=== PATIENT | male | born 1960 | race Caucasian/White ===

== ENCOUNTER 2017-09-13 21:38 | Inpatient (IN) | payer BC ==
[~2017-09-13] VITALS: Ht 175.3 cm; Wt 93.3 kg
[2017-09-13 21:40] VITALS: BP 109/85; PULSE 120; RESP 16; TEMP 98.3; O2SAT 98
--- NOTE | 2017-09-13 22:44 | PD ---
HPI Chief Complaint: Pain: Acute or Chronic Time Seen by Provider: 22:42 Travel History International Travel<30 days: No Contact w/Intl Traveler<30days: No Traveled to known affect area: No History of Present Illness HPI The patient is a 56 year old male who presents to the [facility] emergency department with a history of gradually worsening pain in his neck and back that first began approximately 6 weeks ago. Patient reports that he awoke with the pain in his neck that was gradually getting worse, therefore he went to a neurologist by the name of . He reports that at that time he was also having pain down into his right arm. An MRI of the cervical spine without contrast was ordered by the neurologist which the patient provides during this emergency department visit and showed "an irregular T2 bright mass involving the right lateral C4 and C5 vertebral body and extension into the right pedicle with the mass measuring 2 x 2 x 1.5 cm. This mass completely obscures the right neural foramina at C4-C5 C5-C6. There is also asymmetry within the adjacent right paraspinal soft tissues at this level which is incompletely evaluated". The patient reports that subsequent to that and an MRI of the cervical spine with contrast was ordered. At that point a large right supraclavicular soft tissue mass and a destructive lesion of the C5 vertebral body was noted, both malignant until proven otherwise according to that reading radiologist. Subcentimeter metastatic lesions were also noted of the T2 and T3 vertebral bodies. After this, the patient had an appointment with a local oncologist in [place], . A PET scan was ordered and it appears completed on September 02. The patient has a copy of this also provided during this emergency department visit. The PET scan confirms destructive tumor in the right C4 vertebral body, right supraclavicular tumor, no malignancy or metastasis identified elsewhere. The patient reports that his oncologist told him to come to the emergency department for admission to the hospital to obtain his biopsy. The patient denies any history of fever, cough, congestion, neck pain, chest pain, shortness of breath, abdominal pain, vomiting, diarrhea, urinary symptoms , or neurologic symptoms. [facility] Past Medical History Narrative Medical The patient's past medical history is significant for hypertension, depression, tobacco abuse, anxiety disorder Anxiety: Yes Cancer: Yes (spinal ca c and t) Headaches: Yes (r/t pain) Hypertension: Yes Tetanus Vaccination: > 5 Years Influenza Vaccination: Yes Past Surgical History Narrative Surgical The patient's past surgical history is significant for a left hip replacement Joint Replacement: Yes (left hip replacement) Social History Alcohol Use: Yes (2 drinks 2-3 times per week.) Tobacco Use: Yes (2 packs per day) Substance Use: No Allergies-Medications (Allergen,Severity, Reaction): Coded Allergies: No Known Allergies (Verified Allergy, Unknown, 09/13/17) Reported Meds & Prescriptions Reported Meds & Active Scripts Active Reported Bupropion HCl 100 Mg Tab 300 Mg PO DAILY Losartan (Losartan Potassium) 25 Mg Tab 12.5 Mg PO BID Alprazolam 0.5 Mg Tab 0.5 Mg PO Q6H PRN Morphine IR (Morphine Sulfate) 15 Mg Tab 15 Mg PO Q6HR PRN Percocet (Oxycodone-Acetaminophen) 10-325 mg Tab 1 Tab PO Q4H PRN Narrative Medication Wellbutrin, losartan, Xanax as needed, morphine for pain which he last took yesterday. Review of Systems Except as stated in HPI: all other systems reviewed are Neg General / Constitutional: No: Fever Eyes: No: Visual changes HENT: No: Headaches Cardiovascular: No: Chest Pain or Discomfort Respiratory: No: Shortness of Breath Gastrointestinal: No: Nausea, Vomiting, Diarrhea, Abdominal Pain Genitourinary: No: Dysuria Musculoskeletal: Positive: Myalgias, Arthralgias, Pain Skin: No Rash Neurologic: No: Weakness, Focal Abnormalities, Change in Mentation, Slurred Speech, Sensory Disturbance Psychiatric: No: Depression Endocrine: No: Polydipsia Hematologic/Lymphatic: No: Easy Bruising Physical Exam Narrative General: The patient is a well-developed well-nourished male in no acute distress. Head and Neck exam: Head is normocephalic atraumatic. Eyes: EOMI, pupils are equal round and reactive to light. Nose: Midline septum with pink mucous membranes Mouth: Dentition unremarkable. Moist mucus membranes. Posterior oropharynx is not erythematous. No tonsillar hypertrophy. Uvula midline. Airway patent. Neck: No palpable lymphadenopathy. No nuchal rigidity. No thyromegaly. The patient reports having right-sided cervical paraspinal tenderness on palpation. Cardiovascular: Sinus tachycardia in the 1 teens without murmurs, gallops, or rubs. No pulse deficit to the extremities on simultaneous auscultation and palpation of his radial artery. Lungs: Clear to auscultation bilaterally. No wheezes, rhonchi, or rales. Abdomen: Soft, without tenderness to palpation in all 4 quadrants of the abdomen. No guarding, rebound, or rigidity. Normal bowel sounds are audible. No tenderness on palpation of McBurney's point. Extremities: No clubbing, cyanosis, or edema. 2+ pulses in all 4 extremities. Back: No costovertebral angle tenderness to palpation. Neurologic Exam: Cranial nerves 2-12 were intact on exam. Strength is 5/5 in all 4 extremities. No sensory deficits noted. Skin Exam: No rash noted. Intact skin that is warm and dry. Data Data Last Documented VS Vital Signs Date Time Temp Pulse Resp B/P (MAP) Pulse Ox O2 Delivery O2 Flow Rate FiO2 09/13/17 23:44 16 98 Room Air 09/13/17 23:30 104 09/13/17 21:40 98.3 Orders Orders Electrocardiogram (09/13/17 22:59) Complete Blood Count With Diff (09/13/17 22:59) Comprehensive Metabolic Panel (09/13/17 22:59) Prothrombin Time / Inr (Pt) (09/13/17 22:59) Act Partial Throm Time (Ptt) (09/13/17 22:59) Lipase (09/13/17 22:59) Urinalysis - C+S If Indicated (09/13/17 22:59) Magnesium (Mg) (09/13/17 22:59) Chest, Single Ap (09/13/17 22:59) Iv Access Insert/Monitor (09/13/17 22:59) Ecg Monitoring (09/13/17 22:59) Oximetry (09/13/17 22:59) Sodium Chlorid 0.9% 500 Ml Inj (Ns 500 M (09/13/17 23:00) Ondansetron Inj (Zofran Inj) (09/13/17 23:00) Hydromorphone Pf Inj (Dilaudid Pf Inj) (09/13/17 23:00) Hydromorphone Pf Inj (Dilaudid Pf Inj) (09/14/17 00:15) Admit Order (Ed Use Only) (09/14/17 00:48) Labs Laboratory Tests Test 09/13/17 23:22 White Blood Count 14.7 TH/MM3 Red Blood Count 4.51 MIL/MM3 Hemoglobin 14.0 GM/DL Hematocrit 39.9 % Mean Corpuscular Volume 88.5 FL Mean Corpuscular Hemoglobin 31.0 PG Mean Corpuscular Hemoglobin Concent 35.1 % Red Cell Distribution Width 14.5 % Platelet Count 238 TH/MM3 Mean Platelet Volume 9.0 FL Neutrophils (%) (Auto) 73.6 % Lymphocytes (%) (Auto) 16.6 % Monocytes (%) (Auto) 8.2 % Eosinophils (%) (Auto) 0.8 % Basophils (%) (Auto) 0.8 % Neutrophils # (Auto) 10.8 TH/MM3 Lymphocytes # (Auto) 2.4 TH/MM3 Monocytes # (Auto) 1.2 TH/MM3 Eosinophils # (Auto) 0.1 TH/MM3 Basophils # (Auto) 0.1 TH/MM3 CBC Comment DIFF FINAL Differential Comment Prothrombin Time 10.7 SEC Prothromb Time International Ratio 1.1 RATIO Activated Partial Thromboplast Time 26.1 SEC Urine Color YELLOW Urine Turbidity CLEAR Urine pH 7.0 Urine Specific [place] 1.020 Urine Protein TRACE mg/dL Urine Glucose (UA) NEG mg/dL Urine Ketones NEG mg/dL Urine Occult Blood NEG Urine Nitrite NEG Urine Bilirubin NEG Urine Urobilinogen 2.0 MG/DL Urine Leukocyte Esterase TRACE Urine RBC 2 /hpf Urine WBC 1 /hpf Urine Hyaline Casts 4 /lpf Urine Mucus FEW /lpf Microscopic Urinalysis Comment CULT NOT INDICATED Blood Urea Nitrogen 18 MG/DL Creatinine 0.84 MG/DL Random Glucose 131 MG/DL Total Protein 6.7 GM/DL Albumin 3.1 GM/DL Calcium Level 8.4 MG/DL Magnesium Level 2.2 MG/DL Alkaline Phosphatase 49 U/L Aspartate Amino Transf (AST/SGOT) 28 U/L Alanine Aminotransferase (ALT/SGPT) 69 U/L Total Bilirubin 0.6 MG/DL Sodium Level 140 MEQ/L Potassium Level 3.5 MEQ/L Chloride Level 104 MEQ/L Carbon Dioxide Level 28.5 MEQ/L Anion Gap 8 MEQ/L Estimat Glomerular Filtration Rate 94 ML/MIN Lipase 212 U/L [facility] Medical Decision Making Medical Screen Exam Complete: Yes Emergency Medical Condition: Yes Medical Record Reviewed: Yes Interpretation(s) Last Impressions Chest X-Ray 09/13/17 2259 Signed Impressions: Service Date/Time: Wednesday, September 13, 2017 23:17 - CONCLUSION: No acute disease. Darrel De La O MD Differential Diagnosis Progression of metastatic cancer, versus musculoskeletal strain Narrative Course During the course of the patient's emergency department visit, the patient's history, examination, and differential diagnosis were reviewed with the patient. The patient was placed on a cardiac cath rn with oximetry and frequent blood pressure monitoring. The patient had IV access obtained and blood work sent for analysis. The patient was initially provided hydromorphone 1 mg IV for pain, Zofran 4 mg IV for nausea, normal saline at 500 mL bolus 1. The patient's laboratory studies were reviewed and remarkable for a white count of 14.7, hemoglobin 14, platelets 238 was 73.6 neutrophils. CMP is remarkable for a glucose of 131, calcium 8.4, albumin 3.1, lipase 212, PT 10.7, PTT 26.1, urinalysis is unremarkable. Radiology studies were reviewed and remarkable for chest x-ray that shows no acute cardiopulmonary disease. The patient continued to require IV pain medication was given a second dose of hydromorphone 1 mg IV. The patient will be admitted to the hospital for intractable pain related to a supraclavicular mass, cervical spine mass. The patient's results were discussed with the patient, including the plan of care. I explained that further testing and/ or monitoring is indicated based on the patient's history, examination, and/ or laboratory findings. Therefore, I recommended admission for additional evaluation. The patient expressed understanding and was agreeable with this plan. The patient was admitted to the hospital in stable condition and sent to a [facility]. Physician Communication Physician Communication The patient's case including history, pertinent physical examination findings, and laboratory studies were discussed with Dr. Mary. It was agreed that the patient would be admitted to the [facility] service. Diagnosis Primary Impression: Intractable pain Additional Impressions: Supraclavicular mass Cervical spinal mass Cherie Argueta MD Sep 13, 2017 22:44
[2017-09-13] MEDS ORDERED: ONDANSETRON HCL 4 MG/2 ML VIAL IV PUSH ONE (23:00)
[2017-09-13] MEDS ORDERED: HYDROmorphone HCL PF 2 MG/ML VIAL IV PUSH ONE (23:00)
[2017-09-13] MEDS ORDERED: SODIUM CHLORID 0.9% 500 ML INJ 500 ML IV ONE (23:00)
[2017-09-13 23:30] VITALS: BP 143/86; PULSE 104; RESP 18; O2SAT 98
--- NOTE | 2017-09-13 23:36 | RADRPT ---
EXAM DATE/TIME: 09/13/2017 23:17 [place] COMPARISON: No previous studies available for comparison. INDICATIONS : Back pain. MEDICAL HISTORY : Carcinoma of the spine SURGICAL HISTORY : None. ENCOUNTER: Initial ACUITY: 1 day PAIN SCORE: 0/10 LOCATION: Bilateral chest FINDINGS: A single view of the chest demonstrates the lungs to be symmetrically aerated without evidence of mas s, infiltrate or effusion. The cardiomediastinal contours are unremarkable. Osseous structures are intact. CONCLUSION: No acute disease. Darrel De La O MD on September 13, 2017 at 23:35 Board Certified Radiologist. This report was verified electronically.
[2017-09-13 23:44] VITALS: RESP 16; O2SAT 98
[2017-09-13 23:47] LABS: BILIRUBIN, URINE NEG (NEG); BLOOD, URINE NEG (NEG); GLUCOSE,URINE NEG (NEG); HYALINE CAST, URINE 4 /lpf (RARE); KETONE, URINE NEG (NEG); MUCUS URINE FEW /lpf (OCC); NITRITE,URINE NEG (NEG); URINE COLOR YELLOW (YELLW/STRAW); URINE LEUKOCYTE ESTERASE TRACE (NEG)
[2017-09-13 23:55] LABS: INTERNATIONAL NORMALIZED RATIO 1.1 RATIO; PROTHROMBIN TIME - PATIENT 10.7 SEC (9.8-11.6)
[2017-09-13 23:56] LABS: AUTOMATED NEUTROPHIL # 10.8 TH/MM3 (1.8-7.7); BASOPHIL # 0.1 TH/MM3 (0-0.2); BASOPHIL % 0.8 % (0.0-2.0); EOSINOPHIL # 0.1 TH/MM3 (0-0.4); EOSINOPHIL % 0.8 % (0.0-4.0); HEMATOCRIT 39.9 % (39.0-51.0); LYMPH % 16.6 % (9.0-44.0); LYMPHOCYTE # 2.4 TH/MM3 (1.0-4.8); MEAN CELL VOLUME 88.5 FL (80.0-100.0); MEAN CORPUSCULAR HGB CONC 35.1 % (32.0-36.0); MONO % 8.2 % (0.0-8.0); MONOCYTE # 1.2 TH/MM3 (0-0.9); NEUT % 73.6 % (16.0-70.0); PLATELET COUNT 238 TH/MM3 (150-450); RED BLOOD COUNT 4.51 MIL/MM3 (4.50-5.90); RED CELL DISTRIBUTION WIDTH 14.5 % (11.6-17.2); WHITE BLOOD COUNT 14.7 TH/MM3 (4.0-11.0)
[2017-09-14 00:04] LABS: ALKALINE PHOSPHATASE 49 U/L (45-117); TOTAL BILIRUBIN ADULT 0.6 MG/DL (0.2-1.0); TOTAL PROTEIN 6.7 GM/DL (6.4-8.2)
[2017-09-14 00:10] LABS: ALBUMIN 3.1 GM/DL (3.4-5.0); ALT (GPT) 69 U/L (12-78); AST (GOT) 28 U/L (15-37); BICARBONATE 28.5 MEQ/L (21.0-32.0); BLOOD UREA NITROGEN 18 MG/DL (7-18); CALCIUM 8.4 MG/DL (8.5-10.1); CHLORIDE 104 MEQ/L (98-107); CREATININE 0.84 MG/DL (0.60-1.30); GLOMERULAR FILTRATION RATE 94 ML/MIN (>89); GLUCOSE,RANDOM 131 MG/DL (74-106); MAGNESIUM 2.2 MG/DL (1.5-2.5); SODIUM (NA) 140 MEQ/L (136-145)
[2017-09-14] MEDS ORDERED: HYDROmorphone HCL PF 2 MG/ML VIAL IV PUSH ONE (00:15)
[2017-09-14] MEDS ORDERED: GADODIAMIDE PF 287 MG/ML 20 ML VIAL (for RAD MRI) IVCONTRAST ONE (00:51)
[2017-09-14] MEDS ORDERED: IOHEXOL 350 MG/ML 10 ML VIAL (for RAD DIAG) IVCONTRAST ONE ×2 (00:51→11:18)
[2017-09-14 01:00] VITALS: BP 125/78; PULSE 104; RESP 18; O2SAT 99
[2017-09-14] MEDS ORDERED: ONDANSETRON HCL 4 MG/2 ML VIAL IVP PRN (01:00)
[2017-09-14] MEDS ORDERED: ACETAMINOPHEN 325 MG TAB PO PRN (01:00)
[2017-09-14] MEDS ORDERED: BISACODYL 10 MG SUPP RECTAL PRN (01:00)
[2017-09-14] MEDS ORDERED: MAGNESIUM HYDROXIDE SUSP 30 ML CUP PO PRN (01:00)
[2017-09-14] MEDS ORDERED: ACETAMINOPHEN/HYDROcodone 325 MG/5 MG TAB PO PRN (01:00)
[2017-09-14] MEDS ORDERED: LACTULOSE SYRUP 20 GM/30 ML CUP PO PRN (01:00)
[2017-09-14] MEDS ORDERED: ALPR0.5T3 PO (01:44)
[2017-09-14] MEDS ORDERED: MSIR15 PO (01:44)
[2017-09-14] MEDS ORDERED: LOSA25TA PO (01:44)
[2017-09-14] MEDS ORDERED: PERC10TA27 PO (01:44)
[2017-09-14] MEDS ORDERED: BUPR100T4 PO (01:44)
[2017-09-14] MEDS ORDERED: PILL SPLITTER OTHER PRN (02:00)
[2017-09-14] MEDS: HYDROmorphone HCL PF 2 MG/ML VIAL IV PUSH PRN ×4 (02:08→13:22)
[2017-09-14] MEDS ORDERED: CYCLOBENZAPRINE HCL 10 MG TAB PO PRN (03:45)
--- NOTE | 2017-09-14 03:57 | HHI.HP ---
HPI Service [facility] Primary Care Physician Unknown Admission Diagnosis Intractable pain, supraclavicular and C4 mass Diagnoses: (1) Intractable pain Diagnosis: Principal (2) Cervical spinal mass Diagnosis: Principal (3) Supraclavicular mass Diagnosis: Principal (4) Leukocytosis Diagnosis: Principal (5) Tobacco abuse Diagnosis: Principal Travel History International Travel<30 Days: No Contact w/Intl Traveler <30 Da: No Traveled to Known Affected Are: No History of Present Illness This is a 56-year-old male with a PMH of Anxiety, Depression and HTN who presented to the ER with complaints of severe neck pain. Pain started acute in August, has gotten progressively worse since then. Reports pain is severe, constant, 10/10, worse w/ movement. Notes associated RUE numbness/weakness when symptoms started. Was seen by Neurologist, Dr. Howell, in [place] at that time and referred for MRI. Per report, MRI C-Spine w/o contrast showing irregular mass involving C4-C5, had subsequent MRI w/ contrast showing large right supraclavicular soft tissue mass and destructive lesion of C5. States he saw Neurosurgeon in [place] who referred him to Oncologist. Was seen by Dr. Marroquin in [place] w/ Oncology, had PET Scan confirming destructive tumor right C4 vertebral body and right supraclavicular tumor, no mets elsewhere. States he called his Oncologist and was instructed to come to ER for further eval of severe pain. On arrival, BP 109/85, HR 120, O2 sat 98% on RA, Afebrile. W WBC 14.7. Chemistry essentially unremarkable. INR 1.1. UA negative. CXR with no acute findings. Review of Systems Except as stated in HPI: all other systems reviewed are Neg ROS: 14 point review of systems otherwise negative. Past Family Social History Past Medical History PMH: Anxiety, Depression and HTN Past Surgical History PAST SURGICAL HISTORY: Left Hip Replacement Allergies: Coded Allergies: No Known Allergies (Verified Allergy, Unknown, 09/13/17) Family History PAST FAMILY HISTORY: Reviewed. No h/o DM or CAD Social History PAST SOCIAL HISTORY: Occasional alcohol. Smokes 2ppd. Negative for drugs. Physical Exam Vital Signs Vital Signs Date Time Temp Pulse Resp B/P (MAP) Pulse Ox O2 Delivery O2 Flow Rate FiO2 09/14/17 01:48 09/14/17 01:00 104 18 125/78 (94) 99 Room Air 09/13/17 23:44 16 98 Room Air 09/13/17 23:30 104 18 143/86 (105) 98 Room Air 09/13/17 21:40 98.3 120 16 109/85 (93) 98 Room Air Physical Exam PE: GENERAL: Pleasant middle-aged white male in no acute distress, however in obvious pain. HEENT: PERRLA, EOMI. No scleral icterus or conjunctival pallor. No lid lag or facial droop. CARDIOVASCULAR: Regular rate and rhythm. No obvious murmurs to auscultation. No chest tenderness to palpation. RESPIRATORY: No obvious rhonchi or wheezing. Clear to auscultation. Breath sounds equal bilaterally. GASTROINTESTINAL: Abdomen soft, non-tender, nondistended. BS normal. MUSCULOSKELETAL: Extremities without clubbing, cyanosis, or edema. No obvious deformities. NEUROLOGICAL: Awake, alert and oriented x4. No focal neurologic deficits. Moving both upper and lower extremities spontaneously. Laboratory Laboratory Tests Test 09/13/17 23:22 White Blood Count 14.7 Red Blood Count 4.51 Hemoglobin 14.0 Hematocrit 39.9 Mean Corpuscular Volume 88.5 Mean Corpuscular Hemoglobin 31.0 Mean Corpuscular Hemoglobin Concent 35.1 Red Cell Distribution Width 14.5 Platelet Count 238 Mean Platelet Volume 9.0 Neutrophils (%) (Auto) 73.6 Lymphocytes (%) (Auto) 16.6 Monocytes (%) (Auto) 8.2 Eosinophils (%) (Auto) 0.8 Basophils (%) (Auto) 0.8 Neutrophils # (Auto) 10.8 Lymphocytes # (Auto) 2.4 Monocytes # (Auto) 1.2 Eosinophils # (Auto) 0.1 Basophils # (Auto) 0.1 CBC Comment DIFF FINAL Differential Comment Prothrombin Time 10.7 Prothromb Time International Ratio 1.1 Activated Partial Thromboplast Time 26.1 Urine Color YELLOW Urine Turbidity CLEAR Urine pH 7.0 Urine Specific [place] 1.020 Urine Protein TRACE Urine Glucose (UA) NEG Urine Ketones NEG Urine Occult Blood NEG Urine Nitrite NEG Urine Bilirubin NEG Urine Urobilinogen 2.0 Urine Leukocyte Esterase TRACE Urine RBC 2 Urine WBC 1 Urine Hyaline Casts 4 Urine Mucus FEW Microscopic Urinalysis Comment CULT NOT INDICATED Blood Urea Nitrogen 18 Creatinine 0.84 Random Glucose 131 Total Protein 6.7 Albumin 3.1 Calcium Level 8.4 Magnesium Level 2.2 Alkaline Phosphatase 49 Aspartate Amino Transf (AST/SGOT) 28 Alanine Aminotransferase (ALT/SGPT) 69 Total Bilirubin 0.6 Sodium Level 140 Potassium Level 3.5 Chloride Level 104 Carbon Dioxide Level 28.5 Anion Gap 8 Estimat Glomerular Filtration Rate 94 Lipase 212 Result Diagram: 09/13/17232109/13/172321 Caprini VTE Risk Assessment Caprini VTE Risk Assessment: No/Low Risk (score <= 1) Caprini Risk Assessment Model Point Value = 1 Point Value = 2 Point Value = 3 Point Value = 5 Age 41-60 Minor surgery BMI > 25 kg/m2 Swollen legs Varicose veins or History of unexplained or recurrent spontaneous Oral contraceptives or hormone replacement Sepsis (< 1 month) Serious lung disease, including pneumonia (< 1 month) Abnormal pulmonary function Acute myocardial infarction Congestive heart failure (< 1 month) History of inflammatory bowel disease Medical patient at bed rest Age 61-74 Arthroscopic surgery Major open surgery (> 45 min) Laparoscopic surgery (> 45 min) Malignancy Confined to bed (> 72 hours) Immobilizing plaster cast Central venous access Age >= 75 History of VTE Family history of VTE Factor V Leiden Prothrombin [id number] Lupus anticoagulant Anticardiolipin antibodies Elevated serum homocysteine Heparin-induced thrombocytopenia Other congenital or acquired thrombophilia Stroke (< 1 month) Elective arthroplasty Hip, pelvis, or leg fracture Acute spinal cord injury (< 1 month) Prophylaxis Regimen Total Risk Factor Score Risk Level Prophylaxis Regimen 0-1 Low Early ambulation 2 Moderate Order ONE of the following: *Sequential Compression Device (SCD) *Heparin 5000 units SQ BID 3-4 Higher Order ONE of the following medications: *Heparin 5000 units SQ TID *Enoxaparin/Lovenox 40 mg SQ daily (WT < 150 kg, CrCl > 30 mL/min) *Enoxaparin/Lovenox 30 mg SQ daily (WT < 150 kg, CrCl > 10-29 mL/min) *Enoxaparin/Lovenox 30 mg SQ BID (WT < 150 kg, CrCl > 30 mL/min) AND/OR *Sequential Compression Device (SCD) 5 or more Highest Order ONE of the following medications: *Heparin 5000 units SQ TID (Preferred with Epidurals) *Enoxaparin/Lovenox 40 mg SQ daily (WT < 150 kg, CrCl > 30 mL/min) *Enoxaparin/Lovenox 30 mg SQ daily (WT < 150 kg, CrCl > 10-29 mL/min) *Enoxaparin/Lovenox 30 mg SQ BID (WT < 150 kg, CrCl > 30 mL/min) AND *Sequential Compression Device (SCD) Assessment and Plan Problem List: (1) Intractable pain ICD Code: R52 - Pain, unspecified (2) Cervical spinal mass ICD Code: G95.9 - Disease of spinal cord, unspecified (3) Supraclavicular mass ICD Code: R22.2 - Localized swelling, mass and lump, trunk (4) Leukocytosis ICD Code: D72.829 - Elevated white blood cell count, unspecified (5) Tobacco abuse ICD Code: Z72.0 - Tobacco use Assessment and Plan A/P: 1. Intractable Pain: secondary to cervical mass. Analgesics/antiemetics as needed, start Flexeril. 2. C-Spine Mass: progressive neck pain, RUE weakness, found to have destructive lesion right C4 on outpatient imaging, pt has CDs and reports at bedside. PET Scan w/ confirmation of destructive tumor and supraclavicular mass , malignancy until proven otherwise. Primary unknown. Obtain all records, may need additional imaging. Will consult Oncology for further recommendations. Will need biopsy for diagnosis. 3. Supraclavicular Mass: unclear if associated w/ C-Spine Mass, no other lesions noted on PET. Will continue w/ plan as above. 4. Leukocytosis: WBC 14, likely reactive. No signs of infection. CXR w/ no acute findings, images reviewed by me. Will repeat labs in am. 5. DVT Prophylaxis: SCD/Teds 6. Social work for d/c planning as needed. 7. Case discussed w/ ER physician at length, labs/records/imaging reviewed by me. Abbi Mary MD Sep 14, 2017 03:57
[2017-09-14 04:50] VITALS: BP 113/80; PULSE 88; RESP 18; TEMP 98.2; O2SAT 97
[2017-09-14 08:00] VITALS: BP 114/74; PULSE 104; RESP 17; TEMP 96.8; O2SAT 97
--- NOTE | 2017-09-14 08:31 | MB ---
cc: ALEXI SILVEIRA M.D., [place] MD DATE OF CONSULTATION 09/14/[address] Mary. REASON FOR CONSULTATION Oncology is consulted to render an opinion regarding patient with a cervical mass and supraclavicular mass, admitted with neck pain. HISTORY OF PRESENT ILLNESS The patient is a 56-year-old male who presented to the hospital with complaint of severe neck pain radiating down the right upper extremity associated with some right upper extremity numbness and mild weakness. He started having pain around August and was progressively getting worse. He stated the pain was worse with movement. He was referred to see neurology, had an MRI of the cervical spine done initially without contrast which showed a C4 and C5 lesion. Subsequently he had an MRI with contrast which again showed a cervical lesion with a large right supraclavicular mass. He was then sent to see a neurosurgeon and subsequently sent to see an oncologist in [place], Dr. Marroquin. He stated he had a PET scan done which showed a destructive lesion in C4 and had a right supraclavicular mass but no other distant metastasis. He stated his pain is worse and his insurance does not cover the biopsy. He was told to come to the emergency room for further evaluation. He denies any headache. Denies any visual changes. Denies any chest pressure, palpitations or shortness of breath. He has a chronic cough. Denies hemoptysis. Denies nausea, vomiting, diarrhea or abdominal pain. Denies any low back pain. Denies any focal numbness or weakness other than his arm as above. PAST MEDICAL HISTORY 1. Depression. 2. Anxiety. 3. Hypertension. PAST SURGICAL HISTORY Left hip replacement surgery. FAMILY HISTORY Father of pancreatic cancer. One brother is alive. His son was just killed in an accident three months ago. Another son is healthy and lives in [place] SOCIAL HISTORY The patient lives alone. 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 He drinks occasionally. He smoked up to two packs a day for the last 35 years. ALLERGIES No known drug allergies. MEDICATIONS 1. Bre-Colace. 2. Wellbutrin. 3. Cozaar. REVIEW OF SYSTEMS CONSTITUTIONAL: He denies any fever, chills, night sweats, weight loss. EYES: Denies blurry vision, double vision. ENT: Denies mouth sores or voice changes. CARDIOVASCULAR: As above. RESPIRATORY: As above. GI: Denies any nausea, vomiting, diarrhea, abdominal pain. : Denies dysuria or hematuria. MUSCULOSKELETAL: As above. HEMATOLOGIC: Negative. ENDOCRINE: Negative. DERMATOLOGIC: Negative. PSYCHIATRIC: He is a little anxious. NEUROLOGIC: As above. PHYSICAL EXAMINATION VITAL SIGNS: Temperature 98.2, blood pressure 113/80, O2 saturation 97% on room air. GENERAL: He is alert and oriented x3, in no acute distress, a little sleepy. HEENT: Atraumatic, normocephalic. Pupils equal, round and reactive to light. Extraocular muscles are intact. No scleral icterus. Oropharynx has dry mucosa. No lesion. No thyromegaly. No palpable mass. I could not palpate a supraclavicular mass. LYMPHATIC: No palpable axillary or inguinal lymph nodes. CARDIOVASCULAR: Regular S1 and S2. No murmur. LUNGS: Clear to auscultation bilaterally. Coughs occasionally. ABDOMEN: Soft, nontender. Could not palpate liver or spleen. EXTREMITIES: No cyanosis, clubbing or edema. SKIN: No rash or petechiae. NEUROLOGIC: Nonfocal. LABORATORY DATA WBC 14.7. Creatinine 0.84. Liver transaminases within normal limits. ASSESSMENT 1. Large right supraclavicular mass with cervical mass. He has increased neck pain since August which is progressively getting worse. Pain radiates down the right upper extremity and is associated with some numbness. He had an MRI of the spine with contrast August 12, 2017 which showed a large supraclavicular soft tissue mass measured 3.8 x 4.4 x 5.5 cm, and a destructive lesion involving the C5 vertebral body. There were also subcentimeter lesions in T2 and T3 suspicious for metastatic disease. He also had a PET/CT scan done in Dr. Marroquin's office which reportedly showed destructive tumor involving C4 and a hypermetabolic right supraclavicular mass without other distant metastasis. He has more than [id number] smoking history and this is concerning for possible lung cancer although there is no reported lung lesion. His pain is getting worse and he was told to come to the emergency room and to consider a biopsy because he could not have it done outside due to his lack of insurance coverage. I have reviewed his record. I am going to have him get a CT of the chest and brain MRI for further staging. Will consult radiology to biopsy the supraclavicular mass or any other accessible mass noted on CT scan. I explained the work-up to the patient. He had some questions today which were answered. 2. Neck pain due to a destructive lesion in the cervical spine. He will proceed with work-up as above. I think he is likely going to need radiation as well. 3. Depression and anxiety, stable. 4. Hypertension, stable. PLAN 1. Discussion and counseling as above. 2. I reviewed his record. 3. Arrange for CT of the chest and brain MRI. 4. Consult radiology for biopsy once we have the CT results. 5. He likely will need radiation. Thank you Dr. Mary for asking me to see this patient. MD RENETTA Quezada/JASWINDER /7:42 AM /7:59 AM MARY JO
[2017-09-14] MEDS: LOSARTAN 25 MG TAB PO SCH ×2 (09:33→23:06)
[2017-09-14] MEDS: SODIUM CHLORIDE 0.9% FLUSH 10 ML FLUSH IV FLUSH SCH ×2 (09:33→23:06)
[2017-09-14] MEDS: buPROPion HCL 100 MG TAB PO SCH (09:33)
[2017-09-14] MEDS: DOCUSATE SODIUM 50 MG/SENNA 8.6 MG TAB PO SCH ×2 (09:33→23:06)
--- NOTE | 2017-09-14 10:54 | EKG ---
Date Performed: 09/13/2017 Time Performed: 23:56:49 PTAGE: 56 years EKG: SINUS TACHYCARDIA POSSIBLE LEFT ATRIAL ENLARGEMENT ST ELEVATION, PROBABLY EARLY REPOLARIZAT ION ABNORMAL RHYTHM ECG NO PREVIOUS TRACING DOCTOR: Doe Barraza Interpretating Date/Time 09/14/2017 10:50:48
--- NOTE | 2017-09-14 11:24 | RADRPT ---
EXAM DATE/TIME: 09/14/2017 11:08 CORRECTION Corrected on: September 15, 2017; [facility] COMPARISON: No previous studies available for comparison. INDICATIONS : Cervical and supraclavicular mass. IV CONTRAST: 71 cc Omnipaque 350 (iohexol) IV RADIATION DOSE: 14.62 CTDIvol (mGy) MEDICAL HISTORY : Cardiovascular disease. Hypertension. Carcinoma, bone. SURGICAL HISTORY : None. ENCOUNTER: Initial ACUITY: 1 day PAIN SCALE: 0/10 LOCATION: chest TECHNIQUE: Volumetric scanning of the chest was performed. Using automated exposure control and adjustment of t he mA and/or kV according to patient size, radiation dose was kept as low as reasonably achievable to obtain optimal diagnostic quality images. DICOM format image data is available electronically for review and comparison. Follow-up recommendations for detected pulmonary nodules are based at a minimum on nodule size and pa tient risk factors according to Fleischner Society Guidelines. FINDINGS: LUNGS: There is no consolidation or pneumothorax. No concerning pulmonary nodule is visualized. PLEURA: There is no pleural thickening or pleural effusion. MEDIASTINUM: 4 cm soft tissue mass right subclavicular region with extension or metastatic disease into the body o f C7. The heart and great vessels demonstrate no acute abnormality. There is no mediastinal or hilar lymphadenopathy. AXILLAE: Within normal limits. No lymphadenopathy. SKELETAL: Degenerative changes without evidence for metastatic disease. MISCELLANEOUS: 7.3 cm left renal cyst. CONCLUSION: 4 cm soft tissue mass right subclavicular region with extension or metastatic disease into the body of C7. The supraclavicular mass would be amenable to percutaneous biopsy under ultras ound. Bladimir Dick MD FACR on September 14, 2017 at 11:20 Board Certified Radiologist. This report was verified electronically. Bladimir Dick MD FACR on September 15, 2017 at 15:19 Board Certified Radiologist. This report was verified electronically.
[2017-09-14 12:00] VITALS: BP 158/98; PULSE 101; RESP 17; TEMP 97.4; O2SAT 96
--- NOTE | 2017-09-14 12:33 | RADRPT ---
EXAM DATE/TIME: 09/14/2017 10:27 [facility] COMPARISON: No previous studies available for comparison. INDICATIONS : Cephalgia. Cervical mass. CONTRAST: 19 cc Omniscan (gadodiamide) IV MEDICAL HISTORY : Hypertension. SURGICAL HISTORY : Lt hip replacement ENCOUNTER: Subsequent ACUITY: 2 day PAIN SCORE: 3/10 LOCATION: cranial TECHNIQUE: Multiplanar, multisequence MRI of the brain was performed both prior to and following the administrat ion of paramagnetic contrast. FINDINGS: CEREBRUM: The ventricles are normal for age. No evidence of midline shift, mass lesion, hemorrhage or acute in farction. No extraaxial fluid collections are seen. The pituitary gland and suprasellar cistern are normal in configuration. WHITE MATTER: No significant signal abnormalities are seen in the white matter. POSTERIOR FOSSA: The cerebellum and brainstem are intact. The 4th ventricle is midline. The cerebellopontine angle is unremarkable. The cerebellar tonsils are normal in position. DIFFUSION IMAGING: No focal areas of restricted diffusion are seen. No evidence of acute infarction. EXTRACRANIAL: The visualized portions of the orbits are unremarkable. Small retention cyst in the inferior aspect o f the right maxillary antra. 2 cm sebaceous cyst in the subcutaneous soft tissues overlying the left occiput POST-CONTRAST: No abnormal areas of parenchymal or dural enhancement. No evidence of blood-brain barrier breakdown. CONCLUSION: 1. Small retention cyst in the inferior aspect of the right maxillary antra and a subcutaneous 2 cm s ebaceous cyst in the soft tissues overlying the left side of the occiput. 2. Otherwise negative. Intracranial structures are all radiographically normal. Chaparro Valdez MD on September 14, 2017 at 11:39 Board Certified Radiologist. This report was verified electronically.
[2017-09-14 16:00] VITALS: BP 138/88; PULSE 96; RESP 17; TEMP 97.1; O2SAT 97
[2017-09-14 16:16] LABS: CREATININE 0.67 MG/DL (0.60-1.30)
[2017-09-14] MEDS: ACETAMINOPHEN/HYDROcodone 325 MG/10 MG TAB PO PRN (23:05)
[2017-09-15] VITALS (7 sets, daily range): BP systolic 138–191; BP diastolic 72–105; PULSE 82–112; RESP 16–18; TEMP 97.8–98.4; O2SAT 96–98
[2017-09-15] MEDS: ENALAPRILAT 1.25 MG/ML VIAL IV PUSH PRN (01:01)
[2017-09-15] MEDS: ACETAMINOPHEN/HYDROcodone 325 MG/10 MG TAB PO PRN ×2 (05:13→09:32)
[2017-09-15 09:19] LABS: AUTOMATED NEUTROPHIL # 10.1 TH/MM3 (1.8-7.7); BASOPHIL # 0.1 TH/MM3 (0-0.2); BASOPHIL % 0.6 % (0.0-2.0); EOSINOPHIL # 0.1 TH/MM3 (0-0.4); EOSINOPHIL % 0.6 % (0.0-4.0); HEMOGLOBIN 14.1 GM/DL (13.0-17.0); LYMPH % 12.4 % (9.0-44.0); LYMPHOCYTE # 1.6 TH/MM3 (1.0-4.8); MEAN CELL VOLUME 89.4 FL (80.0-100.0); MEAN CORPUSCULAR HEMOGLOBIN 30.8 PG (27.0-34.0); MEAN CORPUSCULAR HGB CONC 34.4 % (32.0-36.0); MEAN PLATELET VOLUME 7.5 FL (7.0-11.0); MONO % 9.4 % (0.0-8.0); MONOCYTE # 1.2 TH/MM3 (0-0.9); PLATELET COUNT 344 TH/MM3 (150-450); RED BLOOD COUNT 4.59 MIL/MM3 (4.50-5.90); RED CELL DISTRIBUTION WIDTH 14.5 % (11.6-17.2); WHITE BLOOD COUNT 13.1 TH/MM3 (4.0-11.0)
[2017-09-15 09:27] LABS: INTERNATIONAL NORMALIZED RATIO 1.1 RATIO; PROTHROMBIN TIME - PATIENT 11.1 SEC (9.8-11.6)
[2017-09-15] MEDS: DOCUSATE SODIUM 50 MG/SENNA 8.6 MG TAB PO SCH ×2 (09:32→21:16)
[2017-09-15] MEDS: buPROPion HCL 100 MG TAB PO SCH (09:32)
[2017-09-15] MEDS: SODIUM CHLORIDE 0.9% FLUSH 10 ML FLUSH IV FLUSH SCH ×2 (09:33→21:17)
[2017-09-15] MEDS: LOSARTAN 25 MG TAB PO SCH ×2 (09:33→21:16)
[2017-09-15 10:00] LABS: ALBUMIN 3.2 GM/DL (3.4-5.0); ALKALINE PHOSPHATASE 60 U/L (45-117); ALT (GPT) 73 U/L (12-78); AST (GOT) 24 U/L (15-37); BLOOD UREA NITROGEN 7 MG/DL (7-18); CALCIUM 9.2 MG/DL (8.5-10.1); CHLORIDE 104 MEQ/L (98-107); CREATININE 0.64 MG/DL (0.60-1.30); GLOMERULAR FILTRATION RATE 129 ML/MIN (>89); GLUCOSE,RANDOM 108 MG/DL (74-106); SODIUM (NA) 137 MEQ/L (136-145); TOTAL BILIRUBIN ADULT 1.2 MG/DL (0.2-1.0); TOTAL PROTEIN 7.2 GM/DL (6.4-8.2)
--- NOTE | 2017-09-15 13:45 | PD.ONC.PN ---
Subjective Subjective Remarks Afebrile overnight. patient states the dilaudid he received yesterday for pain was too strong, and the Lortab he received today is too weak. He states he is in a great deal of pain despite receiving Lortab 2 hours prior to my interview. Objective Data Date Time Temp Pulse Resp B/P (MAP) Pulse Ox O2 Delivery O2 Flow Rate FiO2 09/15/17 08:09 97.8 89 16 154/96 (115) 98 09/15/17 05:02 98.4 84 18 191/105 (133) 97 09/15/17 00:21 98.4 112 18 183/103 (129) 97 09/14/17 16:00 97.1 96 17 138/88 (105) 97 Result Diagram: 09/15/17 0850 09/15/17 0850 Laboratory Results Laboratory Tests Test 09/14/17 14:30 09/15/17 08:50 Creatinine 0.67 MG/DL 0.64 MG/DL Estimat Glomerular Filtration Rate 122 ML/MIN 129 ML/MIN White Blood Count 13.1 TH/MM3 Red Blood Count 4.59 MIL/MM3 Hemoglobin 14.1 GM/DL Hematocrit 41.0 % Mean Corpuscular Volume 89.4 FL Mean Corpuscular Hemoglobin 30.8 PG Mean Corpuscular Hemoglobin Concent 34.4 % Red Cell Distribution Width 14.5 % Platelet Count 344 TH/MM3 Mean Platelet Volume 7.5 FL Neutrophils (%) (Auto) 77.0 % Lymphocytes (%) (Auto) 12.4 % Monocytes (%) (Auto) 9.4 % Eosinophils (%) (Auto) 0.6 % Basophils (%) (Auto) 0.6 % Neutrophils # (Auto) 10.1 TH/MM3 Lymphocytes # (Auto) 1.6 TH/MM3 Monocytes # (Auto) 1.2 TH/MM3 Eosinophils # (Auto) 0.1 TH/MM3 Basophils # (Auto) 0.1 TH/MM3 CBC Comment DIFF FINAL Differential Comment Prothrombin Time 11.1 SEC Prothromb Time International Ratio 1.1 RATIO Activated Partial Thromboplast Time 28.9 SEC Blood Urea Nitrogen 7 MG/DL Random Glucose 108 MG/DL Total Protein 7.2 GM/DL Albumin 3.2 GM/DL Calcium Level 9.2 MG/DL Alkaline Phosphatase 60 U/L Aspartate Amino Transf (AST/SGOT) 24 U/L Alanine Aminotransferase (ALT/SGPT) 73 U/L Total Bilirubin 1.2 MG/DL Sodium Level 137 MEQ/L Potassium Level 3.7 MEQ/L Chloride Level 104 MEQ/L Carbon Dioxide Level 29.0 MEQ/L Anion Gap 4 MEQ/L Administered Medications Medications (Trade) Dose Ordered Sig/Marcus Route PRN Reason Start Time Stop Time Status Last Admin Dose Admin Sodium Chloride (NS Flush) 2 ml BID IV FLUSH 09/14/17 09:00 09/15/17 09:33 Senna/Docusate Sodium (Bre-Colace) 1 tab BID PO 09/14/17 09:00 09/15/17 09:32 Bupropion HCl (Wellbutrin) 300 mg DAILY PO 09/14/17 09:00 09/15/17 09:32 Losartan Potassium (Cozaar) 12.5 mg BID PO 09/14/17 09:00 09/15/17 09:33 Cyclobenzaprine HCl (Flexeril) 10 mg Q8H PRN PO MUSCLE SPASM 09/14/17 03:45 09/14/17 05:04 Enalaprilat (Vasotec Inj) 1.25 mg Q6H PRN IV PUSH SBP>160, DBP>90 09/15/17 00:30 09/15/17 01:01 Objective Remarks GENERAL: Middle aged male, lying in bed, appears to be in pain. SKIN: Warm and dry. HEAD: Normocephalic. EYES: no injection or drainage. NECK: Supple, trachea midline. CARDIOVASCULAR: Regular rate and rhythm RESPIRATORY: Breath sounds equal bilaterally. No accessory muscle use. GASTROINTESTINAL: Abdomen soft, non-tender, nondistended. EXTREMITIES: No cyanosis NEUROLOGICAL: awake and alert, normal speech. able to move extremities. Assessment/Plan Problem List: (1) Supraclavicular mass ICD Codes: R22.2 - Localized swelling, mass and lump, trunk Plan: --invasive radiology consulted for biopsy of supraclavicular mass. -- Large right supraclavicular mass with cervical mass. --[id number] smoking history and this is concerning for possible lung cancer although there is no reported lung lesion. Assessment 56y/o male with cervical mass and supraclavicular mass, admitted with neck pain. HPI (brought forward from initial consult for continuity of care)--started having pain around August and was progressively getting worse. He stated the pain was worse with movement. He was referred to see neurology, had an MRI of the cervical spine done initially without contrast which showed a C4 and C5 lesion. Subsequently he had an MRI with contrast which again showed a cervical lesion with a large right supraclavicular mass. He was then sent to see a neurosurgeon and subsequently sent to see an oncologist in [place], Dr. Marroquin. He stated he had a PET scan done which showed a destructive lesion in C4 and had a right supraclavicular mass but no other distant metastasis. He stated his pain is worse and his insurance does not cover the biopsy. He was told to come to the emergency room for further evaluation. Plan 1. stop Lortab, start Oxycodone 10mg for pain 3-10 and give every four hours as needed. will also add morphine 4mg IV as needed every two hours for pain not relieved with oxycodone after 1 hour. 2. continue bowel regimen. 3. consult radiation oncology 4. await biopsy. 5. UPDATE: I spoke with Dr. Joy the radiation oncologist, who reviewed the MRI and asked me to consult neurosurgery to see if surgery would be a possibility as the lesion is close to the cord. will place consult. Attending Statement The exam, history, and the medical decision-making described in the above note were completed with the assistance of the mid-level provider. I reviewed and agree with the findings presented. I attest that I had a [id number] encounter with the patient on the same day, and personally performed and documented my assessment and findings in the medical record. Reviewed CT with pt. There is a large mass in right supraclav encroaching C7. Consult radiology for biopsy. Discussed with radiation oncology and recommend consulting neurosurgery for possible resection then follow by radiation. Josy Saldivar Sep 15, 2017 13:45 Jj Ocasio MD Sep 15, 2017 15:55
[2017-09-15] MEDS ORDERED: LIDOCAINE HCL 1% 20 ML VIAL ONE (14:34)
[2017-09-15] MEDS ORDERED: MIDAZOLAM HCL 2 MG/2 ML VIAL ONE ×2 (14:47→15:03)
--- NOTE | 2017-09-15 15:14 | HHI.PR ---
Subjective Remarks Patient seen this morning around 8:30 AM. He reports that neck pain continues. Denies any chest pain or shortness of breath. Objective Vital Signs Date Time Temp Pulse Resp B/P (MAP) Pulse Ox O2 Delivery O2 Flow Rate FiO2 09/15/17 14:26 98.0 91 18 172/101 (124) 98 09/15/17 13:42 98.2 82 16 154/96 (115) 96 09/15/17 08:09 97.8 89 16 154/96 (115) 98 09/15/17 05:02 98.4 84 18 191/105 (133) 97 09/15/17 00:21 98.4 112 18 183/103 (129) 97 09/14/17 16:00 97.1 96 17 138/88 (105) 97 I/O 09/14/17 09/14/17 09/14/17 09/15/17 09/15/17 09/15/17 06:59 14:59 22:59 06:59 14:59 22:59 Intake Total 500 ml 480 ml Balance 500 ml 480 ml Intake Oral 480 ml IV Total 500 ml # Voids 2 3 Result Diagram: 09/15/17 0850 09/15/17 0850 Objective Remarks GENERAL: Patient lying in bed. Appears comfortable. SKIN: Warm and dry. HEAD: Normocephalic. EYES: No scleral icterus. No injection or drainage. NECK: Supple, trachea midline. No JVD. CARDIOVASCULAR: Regular rate and rhythm without murmurs, gallops, or rubs. RESPIRATORY: Breath sounds equal bilaterally. No accessory muscle use. GASTROINTESTINAL: Abdomen soft, non-tender, nondistended. MUSCULOSKELETAL: No cyanosis, or edema. BACK: Nontender without obvious deformity. No CVA tenderness. A/P Assessment and Plan // Intractable Pain: secondary to cervical mass. Analgesics/antiemetics as needed, start Flexeril. = Oncology has adjusted pain meds. Appreciate assistance. // C-Spine Mass: progressive neck pain, RUE weakness, found to have destructive lesion right C4 on outpatient imaging, pt has CDs and reports at bedside. PET Scan w/ confirmation of destructive tumor and supraclavicular mass , malignancy until proven otherwise. Primary unknown. Obtain all records, may need additional imaging. Will consult Oncology for further recommendations. Will need biopsy for diagnosis. = Biopsy as per oncology. Appreciate oncology assistance. // Supraclavicular Mass: unclear if associated w/ C-Spine Mass, no other lesions noted on PET. Will continue w/ plan as above. //Leukocytosis: WBC 14, likely reactive. No signs of infection. CXR w/ no acute findings, images reviewed by me. Will repeat labs in am. = White blood cell 13.1. Improving. No fevers. Continue to monitor. //Accelerated hypertension. Likely secondary to pain. Cruciate oncology assistance. A systolic blood pressures up into the 180s, will start on nifedipine. monitor. // DVT Prophylaxis: SCD/Teds Discharge Planning Pending oncology clearance. Lawrence Lynn MD Sep 15, 2017 15:14
[2017-09-15] MEDS ORDERED: NIFEdipine 30 MG SUSTAINED RELEASE TAB PO ONE ×2 (15:15→20:30)
--- NOTE | 2017-09-15 15:41 | PD.RAD ---
Post CT Procedure Prog Note Pre Procedure Diagnosis: (1) Cervical spinal mass (2) Supraclavicular mass Post Procedure Diagnosis: (1) Supraclavicular mass Procedure Date: Sep 15, 2017 Supervising Radiologist: Semaj Augustin Anesthesia: Conscious Sedation Plan of Activity Patient to Unit: Nursing Unit Patient Condition: Good See PACS Report for procedural detail/treatment Semaj Augustin MD Sep 15, 2017 15:41
--- NOTE | 2017-09-15 16:46 | RADRPT ---
EXAM DATE/TIME: 09/15/2017 14:56 [facility] COMPARISON: No previous studies available for comparison. INDICATIONS : Right supraclavicular neck mass RADIATION DOSE: 26.05 CTDIvol (mGy) MEDICAL HISTORY : None SURGICAL HISTORY : None. ENCOUNTER: Initial ACUITY: 1 month PAIN SCORE: 6/10 LOCATION: Right neck TECHNIQUE: Volumetric scanning of the neck was performed. Using automated exposure control and adjustment of th e mA and/or kV according to patient size, radiation dose was kept as low as reasonably achievable to obtain optimal diagnostic quality images. DICOM format image data is available electronically for re view and comparison. FINDINGS: CT examination was performed in conjunction with ultrasound for biopsy of patient's known right supra clavicular mass. Limited examination of the cervicals soft tissues for procedure planning demonstrate s a large partially calcified right supraclavicular mass measuring 3.8 x 3.4 cm. There is redemonstra tion of a lytic mass involving the right probable C6 vertebral body. Appropriate window was identifie d with CT. This region was further evaluated with ultrasound and procedure was performed with ultraso und guidance. Please see ultrasound report for details. CONCLUSION: 1. CT examination for localization of right supraclavicular mass for percutaneous biopsy. Please see above discussion. Semaj Augustin MD on September 15, 2017 at 16:40 Board Certified Radiologist. This report was verified electronically.
--- NOTE | 2017-09-15 16:47 | RADRPT ---
EXAM DATE/TIME: 09/15/2017 15:07 [facility] COMPARISON: No previous studies available for comparison. INDICATIONS : Right enlarged supraclavicular lymph node. MEDICAL HISTORY : Hypertension. C & T spine cancer. Tobacco use. Depression. Anxiety. SURGICAL HISTORY : Left hip replacement. ENCOUNTER: Initial ACUITY: 1 day PAIN SCORE: 0/10 LOCATION: Right neck ORGAN: Right lymph node supraclavicular. SPECIMENS: Four core specimen(s) submitted for pathologic evaluation. DEVICE: 18 gauge Chiba needle Post procedure scanning reveals no hematoma or other complication. The possibility does exist that the tissue obtained will be non-diagnostic. If the sample is non-loida gnostic a repeat biopsy or surgical biopsy may need to be performed. TECHNIQUE: 1. Ultrasound guidance for needle biopsy. 2. Needle biopsy. The risks, benefits and alternatives to the procedure were explained and verbal and written consent w as obtained. The site was prepped in sterile fashion. Full sterile technique was used, including ca p, mask, sterile gloves and gown and a large sterile sheet. Hand hygiene and 2% chlorhexidine and/or betadine/alcohol prep was utilized per protocol for cutaneous antisepsis. The skin and subcutaneous tissues were infiltrated with local anesthetic solution. Sterile gel and sterile probe cover were u tilized for ultrasound guidance. With the patient on the ultrasound table, images were obtained. A needle was advanced into the identified target and the number of specimens as above obtained and kamara bmitted for pathologic evaluation. The patient tolerated the procedure well and left the ultrasound suite in stable condition. CONCLUSION: 1. Uncomplicated ultrasound guided 18 gauge core biopsies of right supraclavicular mass. Semaj Augustin MD on September 15, 2017 at 16:44 Board Certified Radiologist. This report was verified electronically.
[2017-09-15] MEDS: MORPHINE SULFATE 2 MG/ML INJ IV PUSH PRN ×2 (18:51→23:31)
--- NOTE | 2017-09-15 20:07 | PD.CONS ---
History of Present Illness Service Neurosurgery Consult Requested By Medicine service Reason for Consult Cervical spine-supraclavicular neoplasm Primary Care Physician Unknown Diagnoses: History of Present Illness is a 36-year-old gentleman who complains of onset of right sided neck pain approximately 6 weeks ago. The pain gradually progressed and within another 3 weeks he developed progressive numbness and weakness and finally pain in the right shoulder and proximal arm. He states that for the past 2 or 3 weeks he has not been able to lift his right arm up. He was seen by a neurologist and an MRI of the cervical spine without contrast was ordered followed by an MRI with contrast which was done in [place]. He was seen by neurosurgery in [place] and referred to oncologist, , In [place]. A PET scan was performed which revealed the cervical spine and supraclavicular lesion without evidence of other metastatic disease. He has no complaint of left upper extremity or bilateral lower extremity pain weakness or numbness. No difficulty with ambulation. No fevers or chills. No significant problems with hoarseness of voice, difficulty swallowing. Review of Systems Constitutional: COMPLAINS OF: Change in appetite, DENIES: Fatigue, Fever, Weight loss Eyes: DENIES: Blurred vision, Diplopia Ears, nose, mouth, throat: DENIES: Vertigo, Epistaxis Respiratory: COMPLAINS OF: Cough, DENIES: Shortness of breath Cardiovascular: DENIES: Chest pain, Palpitations Gastrointestinal: COMPLAINS OF: Abdominal pain, Nausea (with medication) Genitourinary: DENIES: Urinary incontinence Musculoskeletal: COMPLAINS OF: Neck pain, DENIES: Joint pain, Muscle aches, Back pain Hematologic/lymphatic: DENIES: Bruising Neurologic: DENIES: Abnormal gait, Headache Psychiatric: COMPLAINS OF: Anxiety, Depression Past Family Social History Allergies: Coded Allergies: No Known Allergies (Verified Allergy, Unknown, 09/13/17) Past Medical History Depression Hypertension Past Surgical History No major surgeries reported Reported Medications Reported Meds & Active Scripts Active Reported Bupropion HCl 100 Mg Tab 300 Mg PO DAILY Losartan (Losartan Potassium) 25 Mg Tab 12.5 Mg PO BID Alprazolam 0.5 Mg Tab 0.5 Mg PO Q6H PRN Morphine IR (Morphine Sulfate) 15 Mg Tab 15 Mg PO Q6HR PRN Percocet (Oxycodone-Acetaminophen) 10-325 mg Tab 1 Tab PO Q4H PRN Family History Father from pancreatic and liver cancer. Mother from possible kidney cancer, dementia Social History He is smoked approximately 2 packs cigarettes a day for at least 40 years. Previously daily alcohol use up until the past few weeks, now diminished somewhat. Physical Exam Vital Signs Vital Signs Date Time Temp Pulse Resp B/P (MAP) Pulse Ox O2 Delivery O2 Flow Rate FiO2 09/15/17 15:50 98.1 94 18 138/90 (106) 96 09/15/17 14:26 98.0 91 18 172/101 (124) 98 09/15/17 13:42 98.2 82 16 154/96 (115) 96 09/15/17 08:09 97.8 89 16 154/96 (115) 98 09/15/17 05:02 98.4 84 18 191/105 (133) 97 09/15/17 00:21 98.4 112 18 183/103 (129) 97 Physical Exam GENERAL: This is a well-nourished, well-developed patient, appears moderately uncomfortable during the examination. SKIN: No abrasions, contusion, rash noted. Skin warm and dry. HEAD: Atraumatic. Normocephalic. No temporal or scalp tenderness. EYES: Sclerae are clear and nonicteric ENT: No facial edema or ecchymosis. No periorbital edema or ecchymosis NECK: Trachea midline. Moderate tenderness over the lower posterior lateral cervical-scalene musculature. Moderate sized firm palpable lesion at the ED a left supraclavicular region CARDIOVASCULAR: Regular rate and rhythm without murmurs, gallops, or rubs. RESPIRATORY: Clear to auscultation. Breath sounds equal bilaterally. No wheezes , rales, or rhonchi. GASTROINTESTINAL: Abdomen soft, non-tender, nondistended. No hepato-splenomegaly , or palpable masses. No guarding. MUSCULOSKELETAL: Extremities without cyanosis, or edema. No joint tenderness, or edema noted. No calf tenderness. Dorsalis pedis pulses 2+ bilateral NEUROLOGICAL: Awake and alert Oriented X 3 Speech is clear Conversant and appropriate Follow simple commands well Answers questions appropriately Reasonable judgment and insight Recent and remote memory are intact No evidence of anxiety or depression Pupils are equal and reactive to accommodation. Extra-ocular movements, visual chatterjee to confrontation, facial sensorimotor, tongue, palate, sternocleidomastoid testing, hearing to finger rub testing, and bilateral shoulder shrug are all intact. Sensation is mildly diminished to light touch over the anterolateral aspect of the proximal right arm Strength normal major flexion and extension groups all extremities except for 3/ 5 right deltoid, 4/5 biceps and triceps. Right hand intrinsics normal Mike's absent bilaterally No ankle clonus Plantar responses absent bilateral Fine motor movements intact upper extremities Laboratory Laboratory Tests Test 09/15/17 08:50 White Blood Count 13.1 Red Blood Count 4.59 Hemoglobin 14.1 Hematocrit 41.0 Mean Corpuscular Volume 89.4 Mean Corpuscular Hemoglobin 30.8 Mean Corpuscular Hemoglobin Concent 34.4 Red Cell Distribution Width 14.5 Platelet Count 344 Mean Platelet Volume 7.5 Neutrophils (%) (Auto) 77.0 Lymphocytes (%) (Auto) 12.4 Monocytes (%) (Auto) 9.4 Eosinophils (%) (Auto) 0.6 Basophils (%) (Auto) 0.6 Neutrophils # (Auto) 10.1 Lymphocytes # (Auto) 1.6 Monocytes # (Auto) 1.2 Eosinophils # (Auto) 0.1 Basophils # (Auto) 0.1 CBC Comment DIFF FINAL Differential Comment Prothrombin Time 11.1 Prothromb Time International Ratio 1.1 Activated Partial Thromboplast Time 28.9 Blood Urea Nitrogen 7 Creatinine 0.64 Random Glucose 108 Total Protein 7.2 Albumin 3.2 Calcium Level 9.2 Alkaline Phosphatase 60 Aspartate Amino Transf (AST/SGOT) 24 Alanine Aminotransferase (ALT/SGPT) 73 Total Bilirubin 1.2 Sodium Level 137 Potassium Level 3.7 Chloride Level 104 Carbon Dioxide Level 29.0 Anion Gap 4 Estimat Glomerular Filtration Rate 129 Result Diagram: 09/15/17 0850 09/15/17 0850 Imaging The patient's [facility] and 2017 have been reviewed. There is a moderate right supraclavicular mass which appears likely contiguous with a mass extending to the right C5 vertebral body including the posterior elements with significant compromise of the right C4-5 and C5-6 foramen. There is significant soft tissue component lateral to the vertebra which appears to significantly displace the vertebral artery. No definite significant extension into the spinal canal. No spinal cord compression. Smaller lesions are noted at the T2 and T3 levels without significant canal compromise Neck CT 09/15/17 0600 Signed Impressions: Service Date/Time: Friday, September 15, 2017 14:56 - CONCLUSION: 1. CT examination for localization of right supraclavicular mass for percutaneous biopsy. Please see above discussion. Semaj Augustin MD Lymph Node Biopsy Ultrasound 09/15/17 0000 Signed Impressions: Service Date/Time: Friday, September 15, 2017 15:07 - CONCLUSION: 1. Uncomplicated ultrasound guided 18 gauge core biopsies of right supraclavicular mass. Semaj Augustin MD Chest CT 09/14/17 0000 Signed Impressions: Service Date/Time: Thursday, September 14, 2017 11:08 - CONCLUSION: 4 cm soft tissue mass right subclavicular region with extension or metastatic disease into the body of C7. The supraclavicular mass would be amenable to percutaneous biopsy under ultrasound. Bladimir Dick MD FACR Brain MRI 09/14/17 0000 Signed Impressions: Service Date/Time: Thursday, September 14, 2017 10:27 - CONCLUSION: 1. Small retention cyst in the inferior aspect of the right maxillary antra and a subcutaneous 2 cm sebaceous cyst in the soft tissues overlying the left side of the occiput. 2. Otherwise negative. Intracranial structures are all radiographically normal. Chaparro Valdez MD Chest X-Ray 09/13/17 [id number] Signed Impressions: Service Date/Time: Wednesday, September 13, 2017 23:17 - CONCLUSION: No acute disease. Darrel De La O MD Assessment and Plan Assessment and Plan Impression: 1. Right C5 vertebral mass lesion with significant right C5-C6 nerve root compression and displacement of the vertebral artery. Smaller lesions are noted at the T2-T3 levels 2. Right supraclavicular mass 3. Hypertension 4. Depression Recommendations: I am his were discussed at length with the patient. He has undergone a biopsy of the right supraclavicular lesion today with results pending. He has been on numerous medications including Dilaudid which she states made him too sleepy, hydrocodone which did not help his pain, morphine which caused significant upset stomach for him. He states that oxycodone helped his pain a little as well as IV morphine, but his pain is still 89-10/10 severity even with medication. Gen. treatment options been discussed. Jeancarlos Marinelli MD Sep 15, 2017 20:07
[2017-09-15] MEDS ORDERED: NICOTINE 14 MG/24 HR PATCH T-DERMAL ONE ×2 (20:30→20:45)
[2017-09-15] MEDS ORDERED: fentaNYL 25 MCG/HR PATCH T-DERMAL SCH (21:00)
[2017-09-15] MEDS: ALPRAZolam 0.5 MG TAB PO PRN (23:00)
[2017-09-16] VITALS: BP 198/104; PULSE 68; RESP 18; TEMP 98.4; O2SAT 98
[2017-09-16 04:00] VITALS: BP 189/89; PULSE 87; RESP 18; TEMP 97.8; O2SAT 98
[2017-09-16] MEDS: MORPHINE SULFATE 2 MG/ML INJ IV PUSH PRN ×2 (04:16→09:56)
[2017-09-16] MEDS: DOCUSATE SODIUM 50 MG/SENNA 8.6 MG TAB PO SCH ×2 (08:31→20:04)
[2017-09-16] MEDS: SENNOSIDES 8.6 MG TAB PO PRN (08:31)
[2017-09-16 08:33] VITALS: BP 132/92; PULSE 93; RESP 18; TEMP 98.3; O2SAT 99
[2017-09-16] MEDS: buPROPion HCL 100 MG TAB PO SCH (08:35)
[2017-09-16] MEDS: NIFEdipine 30 MG SUSTAINED RELEASE TAB PO SCH (08:35)
[2017-09-16] MEDS: LOSARTAN 25 MG TAB PO SCH ×2 (08:36→20:05)
[2017-09-16] MEDS: SODIUM CHLORIDE 0.9% FLUSH 10 ML FLUSH IV FLUSH SCH ×2 (08:41→20:04)
[2017-09-16] MEDS ORDERED: REMOVE OLD PATCH T-DERMAL SCH (09:00)
[2017-09-16] MEDS ORDERED: NICOTINE 14 MG/24 HR PATCH T-DERMAL SCH ×2 (09:00)
[2017-09-16] MEDS ORDERED: REMOVE OLD NICODERM (NICOTINE) PATCH T-DERMAL SCH (09:00)
--- NOTE | 2017-09-16 11:31 | RC ---
cc: JANEL MAGAÑA MD,ALEXI BANERJEE M.D. DATE OF SERVICE 09/15/2017 DATE OF [address] 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 REASON FOR VISIT The patient is being evaluated for possible radiotherapy treatment options for palliation. HISTORY OF PRESENT ILLNESS This is a 56-year-old white male who presented to the hospital with severe neck pain radiating down the right upper extremity associated with numbness and weakness of the right upper extremity. It appears that the patient was seen as an outpatient and has had imaging studies which detected a destructive lesion around C4-C5. He also had a PET scan which showed also lesions according to the patient at the C4 area, right subclavicular area and apparently at T2. I do not have the reports to confirm that. In any event, the patient was having issues finding someone to do the biopsy and take care of his case. As a result of this, the patient was recommended to come to the hospital. He was admitted for further evaluation. Imaging has been performed. Dr. Ocasio has evaluated the patient and has recommended for the patient to have radiation oncology consult for palliation of pain. Of note, the patient did have a biopsy performed on the right subclavicular area today. I have discussed this case with both Dr. Dick as well as Dr. Ocasio in regards to how to proceed. PAST MEDICAL HISTORY The patient has a history of: 1. Anxiety 2. Hypertension 3. Left hip surgery 4. Also as above. MEDICATIONS 1. Procardia 2. Fentanyl citrate 3. Versed 4. Morphine sulfate 5. Oxycodone 6. Senna 7. Losartan 8. Potassium 9. Xanax 10. Zofran 11. Senokot 12. Lactulose 13. Dulcolax ALLERGIES NO KNOWN DRUG ALLERGIES. FAMILY HISTORY Father of pancreatic carcinoma. SOCIAL HISTORY The patient has been smoking up to two pack cigarettes a day for the last 35 years. ETOH intake socially. REVIEW OF SYSTEMS CONSTITUTIONAL: The patient denies any decrease of appetite in the last three months. Admits to fatigue. ALLERGIES: Denies any allergic reaction recently. EYES: Denies any double vision. ENT: Denies any difficulty in swallowing. NECK: Does complain of neck pain radiating from the right side into the right shoulder going down his arm. Admits to having a right supraclavicular mass. INTEGUMENTARY: Denies any rashes or hives. CARDIOVASCULAR: Denies any chest pain or signs of IN. RESPIRATORY: Denies hemoptysis, cough or shortness of breath. GASTROINTESTINAL: Unremarkable. GENITOURINARY: Unremarkable. MUSCULOSKELETAL: Pain of the cervical spine. NEUROLOGIC: Complains of weakness of the right upper extremity with inability to push. 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 Also has limited range of motion of the right hand and is not able to brush his teeth or put a hangar in its place. PSYCHIATRIC: Slight anxiety. Denies any depression or suicidal thoughts. ENDOCRINE: Unremarkable. HEMATOLOGIC: Unremarkable. DERMATOLOGIC: Unremarkable. PHYSICAL EXAMINATION The patient is oriented x3 in some distress due to the pain. When asked, he rates his pain a 10/10. He says it is slightly improved with pain medication, but would like the pain to be better. VITAL SIGNS: Temperature 98.1, blood pressure 94, respiratory rate 18, blood pressure 138/90, pulse ox 96% on room air. LUNGS: To auscultation bilateral lungs were clear to auscultation with upper ventilatory respiratory effort. HEART: Heart was regular in rate and rhythm without murmurs. NECK: Palpation of the neck reveals fullness of the right supraclavicular area. The left neck is unremarkable. There appears to be a mass which is affixed in the right supraclavicular area is tender to palpation. ABDOMEN: Palpation of the abdominal cavity, there is no hepatosplenomegaly and no pain elicited and no periumbilical lymph nodes. NEUROLOGIC: The patient has decreased range of motion, weakness of the right hand and has appropriate proprioception and sensation at this point of the right arm. No other neurological deficits detected. Other motor functions are preserved and cognitive function preserved. SKIN: No rash. EXTREMITIES: No lower extremity edema detected of the upper and lower extremities. Limited range of motion of the right upper extremity. SURGICAL PATHOLOGY Pending RADIOLOGY Neck CT, 09/15/17, CT examination for lateralization of right subclavicular mass percutaneous biopsy. Chest x-ray 09/13/[address] of the chest on 09/15/2017. Impression. A 4-cm soft tissue mass in the right supraclavicular region with extension or metastatic disease into the body of C7. Supraclavicular mass will be amendable to percutaneous biopsy on ultrasound. CT of the chest has been independently reviewed by me. MRI of the brain 09/14/2017. Impression. Small retention cyst in the anterior aspect of the right maxillary antra and a subcutaneous 2 cm subcutaneous cyst in the soft tissues overlying the left side of the occiput. Otherwise, negative intracranial structures are all radiographically normal. MRI of the cervical spine 08/12/2017. Impression. Large right supraclavicular and soft tissue mass and a destructive lesion at the C5 vertebral body. There were anterior metastatic lesions noted on T2 and T3 vertebral bodies. This image has been independently reviewed by me. ASSESSMENT A 56-year-old white male with the diagnosis of metastatic disease unknown primary at the present time. The patient is being evaluated for palliative radiotherapy treatment options. PLAN I had an extensive discussion in regards to his present condition. I discussed this case with Dr. Ocasio. My recommendation will be for the patient to have a neurosurgery evaluation to see if surgical stabilization and decompression of the cervical spine could be possible followed by radiation therapy. If no surgery is recommended, then I would recommend palliative radiation therapy to the neck as well as the right supraclavicular area. I don't have a tissue diagnosis of this area, but is very suspicious for malignancy. While we wait for the results, I would either: 1. Start planning for the radiation therapy and start treating him with the understanding that we can be treating something that is not malignant, this if surgery is not recommended or, 2. Wait until we have the results of the imaging studies. I would recommend the patient continue or start on Decadron therapy. I advised the patient of the modalities of the radiation therapy as well as the purpose and merits. We discussed side effects and complications to include, but not limited to weakness and fatigue, decreased blood counts, edema of the skin, necrosis of the skin, painful swallowing, esophageal strictures which may require dilation, loss of hair which could be permanent, bone damage, spinal cord damage, nerve damage, brachial plexus damage, swelling of the right arm, lung damage, lung fibrosis, lung pneumonitis. After a thorough discussion, the patient understood everything that was explained. We will proceed accordingly. The patient advised if I could be of any further assistance, to please let me know. I left him one my business cards. ADDENDUM: 09/16/17; Case discussed with pathology, Dr. Pinon and Dr. Ocasio; it appears that this is metastatic thyroid CA and therefore its not going to respond that quickly to XRT and per discussion the the best approach is to do surgery now followed by palliative XRT. Patient will need thyroid studies and a scan, once he is discharged. Dr. Ocasio, thank you very much for your referral of this patient and allowing us to participate in his care. Should you have any further questions or concerns, please do not hesitate to contact me. Janel Magaña MD Radiation Oncologist FAITH MISTRY/RASHID /5:58 PM /10:53 AM MARY JO
[2017-09-16 11:50] LABS: AUTOMATED NEUTROPHIL # 7.2 TH/MM3 (1.8-7.7); BASOPHIL # 0.1 TH/MM3 (0-0.2); BASOPHIL % 0.7 % (0.0-2.0); EOSINOPHIL # 0.1 TH/MM3 (0-0.4); EOSINOPHIL % 0.8 % (0.0-4.0); HEMATOCRIT 37.2 % (39.0-51.0); HEMOGLOBIN 12.8 GM/DL (13.0-17.0); LYMPH % 16.2 % (9.0-44.0); LYMPHOCYTE # 1.6 TH/MM3 (1.0-4.8); MEAN CELL VOLUME 89.6 FL (80.0-100.0); MEAN CORPUSCULAR HEMOGLOBIN 30.9 PG (27.0-34.0); MEAN CORPUSCULAR HGB CONC 34.5 % (32.0-36.0); MEAN PLATELET VOLUME 7.1 FL (7.0-11.0); MONO % 7.8 % (0.0-8.0); MONOCYTE # 0.8 TH/MM3 (0-0.9); NEUT % 74.5 % (16.0-70.0); PLATELET COUNT 344 TH/MM3 (150-450); RED BLOOD COUNT 4.15 MIL/MM3 (4.50-5.90); RED CELL DISTRIBUTION WIDTH 14.5 % (11.6-17.2); WHITE BLOOD COUNT 9.7 TH/MM3 (4.0-11.0)
--- NOTE | 2017-09-16 12:46 | PD.ONC.PN ---
Subjective Subjective Remarks Afebrile Patient reports he has increasing pain in his neck down his right arm Requesting an increase in his morphine and fentanyl Desperately wants to know his diagnosis and prognosis Objective Data Date Time Temp Pulse Resp B/P (MAP) Pulse Ox O2 Delivery O2 Flow Rate FiO2 09/16/17 08:33 98.3 93 18 132/92 (105) 99 09/16/17 04:21 18 09/16/17 04:00 97.8 87 18 189/89 (122) 98 09/16/17 00:00 98.4 68 18 198/104 (135) 98 09/15/17 23:36 18 09/15/17 22:16 18 09/15/17 19:51 98.0 112 18 175/72 (106) 98 09/15/17 15:50 98.1 94 18 138/90 (106) 96 09/15/17 14:26 98.0 91 18 172/101 (124) 98 09/15/17 13:42 98.2 82 16 154/96 (115) 96 Result Diagram: 09/16/17 1133 09/15/17 0850 Laboratory Results Laboratory Tests Test 09/16/17 11:33 White Blood Count 9.7 TH/MM3 Red Blood Count 4.15 MIL/MM3 Hemoglobin 12.8 GM/DL Hematocrit 37.2 % Mean Corpuscular Volume 89.6 FL Mean Corpuscular Hemoglobin 30.9 PG Mean Corpuscular Hemoglobin Concent 34.5 % Red Cell Distribution Width 14.5 % Platelet Count 344 TH/MM3 Mean Platelet Volume 7.1 FL Neutrophils (%) (Auto) 74.5 % Lymphocytes (%) (Auto) 16.2 % Monocytes (%) (Auto) 7.8 % Eosinophils (%) (Auto) 0.8 % Basophils (%) (Auto) 0.7 % Neutrophils # (Auto) 7.2 TH/MM3 Lymphocytes # (Auto) 1.6 TH/MM3 Monocytes # (Auto) 0.8 TH/MM3 Eosinophils # (Auto) 0.1 TH/MM3 Basophils # (Auto) 0.1 TH/MM3 CBC Comment DIFF FINAL Differential Comment Administered Medications Medications (Trade) Dose Ordered Sig/Marcus Route PRN Reason Start Time Stop Time Status Last Admin Dose Admin Sodium Chloride (NS Flush) 2 ml BID IV FLUSH 2/12/18 09:00 09/16/17 08:41 Senna/Docusate Sodium (Bre-Colace) 1 tab BID PO 09/14/17 09:00 09/16/17 08:31 Sennosides (Senokot) 17.2 mg Q12H PRN PO Moderate constipation 09/14/17 01:00 09/16/17 08:31 Alprazolam (Xanax) 0.5 mg Q6H PRN PO ANXIETY 09/14/17 02:00 09/15/17 23:00 Bupropion HCl (Wellbutrin) 300 mg DAILY PO 09/14/17 09:00 09/16/17 08:35 Losartan Potassium (Cozaar) 12.5 mg BID PO 09/14/17 09:00 09/16/17 08:36 Cyclobenzaprine HCl (Flexeril) 10 mg Q8H PRN PO MUSCLE SPASM 09/14/17 03:45 09/14/17 05:04 Enalaprilat (Vasotec Inj) 1.25 mg Q6H PRN IV PUSH SBP>160, DBP>90 09/15/17 00:30 09/15/17 01:01 Oxycodone HCl (Roxicodone) 10 mg Q4H PRN PO pain 3-10 09/15/17 13:00 09/16/17 08:35 Morphine Sulfate (Morphine Inj) 4 mg Q2HR PRN IV PUSH severe breakthrough pain 09/15/17 13:45 09/16/17 09:56 Nifedipine (Procardia Xl) 30 mg DAILY PO 09/16/17 09:00 09/16/17 08:35 Fentanyl (Duragesic 25 Mcg Patch.72 Hr) 1 patch Q3D T-DERMAL 09/15/17 21:00 09/15/17 23:00 Nicotine (Habitrol 14 Mg Patch.24 Hr) 1 patch DAILY T-DERMAL 09/16/17 09:00 09/16/17 08:36 Objective Remarks GENERAL: Older male resting in bed. He appears uncomfortable and is writhing around SKIN: Warm and dry. HEAD: Normocephalic. EYES: No injection or drainage. NECK: Supple, trachea midline. CARDIOVASCULAR: Regular rate and rhythm without murmurs. RESPIRATORY: Clear anteriorly. Breathing unlabored at rest. GASTROINTESTINAL: Abdomen protuberant and soft. EXTREMITIES: No cyanosis, or edema. MUSCULOSKELETAL: Adequate muscle tone. NEUROLOGICAL: No obvious focal deficit. Awake, alert, and oriented x3. Assessment/Plan Problem List: (1) Supraclavicular mass ICD Codes: R22.2 - Localized swelling, mass and lump, trunk Plan: --invasive radiology consulted for biopsy of supraclavicular mass. -- Large right supraclavicular mass with cervical mass. --[id number] smoking history and this is concerning for possible lung cancer although there is no reported lung lesion. Assessment 56y/o male with cervical mass and supraclavicular mass, admitted with neck pain. HPI (brought forward from initial consult for continuity of care)--started having pain around August and was progressively getting worse. He stated the pain was worse with movement. He was referred to see neurology, had an MRI of the cervical spine done initially without contrast which showed a C4 and C5 lesion. Subsequently he had an MRI with contrast which again showed a cervical lesion with a large right supraclavicular mass. He was then sent to see a neurosurgeon and subsequently sent to see an oncologist in [place], Dr. Marroquin. He stated he had a PET scan done which showed a destructive lesion in C4 and had a right supraclavicular mass but no other distant metastasis. He stated his pain is worse and his insurance does not cover the biopsy. He was told to come to the emergency room for further evaluation. Plan 1. Await final pathology 2. Get CT IV Contrast to look at thyroid with possibility of thyroid primary. 3. Discussed with Dr Marinelli; will await final pathology that is expected to be back later today. 4. Possible surgery in a.m. per Dr. Marinelli depending on pathology. Attending Statement The exam, history, and the medical decision-making described in the above note were completed with the assistance of the mid-level provider. I reviewed and agree with the findings presented. I attest that I had a [id number] encounter with the patient on the same day, and personally performed and documented my assessment and findings in the medical record. Pt is very anxious. Neck pain is stable. No significant RUE weakness. Had biopsy of Left supraclav LN yesterday and final path pending. Preliminary path showed malignancy and need to r/o thyroid cancer. Will get CT neck and neck thyroid studies. Discussed with . He is recommending surgical debulking follow by radiation. I have also discussed with pathology. Await final path. Annette Cho Sep 16, 2017 12:46 Jj Ocasio MD Sep 16, 2017 16:42
[2017-09-16 12:49] VITALS: BP 107/81; PULSE 101; RESP 18; TEMP 98.6; O2SAT 95
[2017-09-16] MEDS: MORPHINE SULFATE 8 MG/ML INJ IV PUSH PRN ×2 (13:42→20:04)
--- NOTE | 2017-09-16 14:24 | RADRPT ---
EXAM DATE/TIME: 09/16/2017 13:04 [place] COMPARISON: No previous studies available for comparison. INDICATIONS : Cervical and supraclavicular masses. IV CONTRAST: 67 cc Omnipaque 350 (iohexol) IV RADIATION DOSE: 18.70 CTDIvol (mGy) MEDICAL HISTORY : Hypertension. Carcinoma, not otherwise specified. SURGICAL HISTORY : None. ENCOUNTER: Initial ACUITY: 3 days PAIN SCALE: 0/10 LOCATION: neck TECHNIQUE: Volumetric scanning of the neck was performed. Using automated exposure control and adjustment of th e mA and/or kV according to patient size, radiation dose was kept as low as reasonably achievable to obtain optimal diagnostic quality images. DICOM format image data is available electronically for r eview and comparison. FINDINGS: The nasopharynx and oropharynx are unremarkable. There is minimal adenopathy in the high right neck with the largest node measuring 0.9 cm. Adenopathy becomes more pronounced as one moves into the sup raclavicular region where there is large 4 cm confluent kristina mass in the right subclavicular region . This is associated with the metastatic deposit in C7 and involves both the body and the posterior elements on the right. No other bony metastasis are identified. Minimal nonspecific adenopathy is present on the left Side of head and neck primary is not identified on this noncontrast CT scan. CONCLUSION: Adenopathy on the right with the confluence mass in the right subclavicular region. Meniscectomy disease to C7. MRI could be used to exclude cord involvement. Mass in the right neck h as been biopsied under ultrasound. Bladimir Dick MD FACR on September 16, 2017 at 14:18 Board Certified Radiologist. This report was verified electronically.
--- NOTE | 2017-09-16 15:54 | HHI.PR ---
Subjective Remarks Patient reports that pain continues. Denies any chest pain shortness of breath. Denies any nausea or vomiting. He says he is anxious waiting for results of biopsy. He says he would not like to go through with chemotherapy. He says he is okay with radiation therapy. He would like to speak with palliative care team. Objective Vital Signs Date Time Temp Pulse Resp B/P (MAP) Pulse Ox O2 Delivery O2 Flow Rate FiO2 09/16/17 12:49 98.6 101 18 107/81 (90) 95 09/16/17 08:33 98.3 93 18 132/92 (105) 99 09/16/17 04:21 18 09/16/17 04:00 97.8 87 18 189/89 (122) 98 09/16/17 00:00 98.4 68 18 198/104 (135) 98 09/15/17 23:36 18 09/15/17 22:16 18 09/15/17 19:51 98.0 112 18 175/72 (106) 98 Result Diagram: 09/16/17 1133 09/15/17 0850 Objective Remarks GENERAL: Patient lying in bed. Appears comfortable.aaox3 SKIN: Warm and dry. HEAD: Normocephalic. EYES: No scleral icterus. No injection or drainage. NECK: Supple, trachea midline. No JVD. CARDIOVASCULAR: Regular rate and rhythm without murmurs, gallops, or rubs. RESPIRATORY: Breath sounds equal bilaterally. No accessory muscle use. GASTROINTESTINAL: Abdomen soft, non-tender, nondistended. MUSCULOSKELETAL: No cyanosis, or edema. BACK: Nontender without obvious deformity. No CVA tenderness. A/P Assessment and Plan // Intractable Pain: secondary to cervical mass. Analgesics/antiemetics as needed, start Flexeril. = Oncology has adjusted pain meds. Appreciate assistance. = Continue pain control. Appreciate oncology's assistance. Patient requests to speak with palliative care service. Patient is amenable to surgery to alleviate pain or radiation, but would not like to do chemotherapy. // C-Spine Mass: progressive neck pain, RUE weakness, found to have destructive lesion right C4 on outpatient imaging, pt has CDs and reports at bedside. PET Scan w/ confirmation of destructive tumor and supraclavicular mass , malignancy until proven otherwise. Primary unknown. Obtain all records, may need additional imaging. Will consult Oncology for further recommendations. Will need biopsy for diagnosis. = Biopsy as per oncology. Appreciate oncology assistance. = Follow biopsy results. Appreciate neurosurgery's assistance // Supraclavicular Mass: unclear if associated w/ C-Spine Mass, no other lesions noted on PET. Will continue w/ plan as above. //Leukocytosis: WBC 14, likely reactive. No signs of infection. CXR w/ no acute findings, images reviewed by me. Will repeat labs in am. = White blood cell 13.1. Improving. No fevers. Continue to monitor. = Resolved. No signs of infection //Accelerated hypertension. Likely secondary to pain. Cruciate oncology assistance. A systolic blood pressures up into the 180s, will start on nifedipine. monitor. = Blood pressure acceptable continue to monitor. // DVT Prophylaxis: SCD/Teds Discharge Planning Pending oncology clearance. Lawrence Lynn MD Sep 16, 2017 15:54
[2017-09-16 16:25] VITALS: BP 125/94; PULSE 100; RESP 18; TEMP 98.2; O2SAT 97
[2017-09-16] MEDS: fentaNYL 50 MCG/HR PATCH T-DERMAL SCH (16:56)
--- NOTE | 2017-09-16 19:07 | HHI.NSPN ---
History Chief Complaint: severe right neck and shoulder pain Interval History is a 36-year-old gentleman who complains of onset of right sided neck pain approximately 6 weeks ago. The pain gradually progressed and within another 3 weeks he developed progressive numbness and weakness and finally pain in the right shoulder and proximal arm. He states that for the past 2 or 3 weeks he has not been able to lift his right arm up. He was seen by a neurologist and an MRI of the cervical spine without contrast was ordered followed by an MRI with contrast which was done in [place]. He was seen by neurosurgery in [place] and referred to oncologist, , In [place]. A PET scan was performed which revealed the cervical spine and supraclavicular lesion without evidence of other metastatic disease. 09/16/17: Minimal response to fentanyl patch. 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 Heart rate regular Moderate tenderness right supraclavicular region and lower lateral cervical paraspinous musculature Sensation moderately diminished anterior lateral right arm to light touch Strength is diminished to 2/5 right deltoid with 3+/5 right biceps, 4+/5 right triceps, otherwise intact upper extremities Mike's response absent bilateral Lab, Micro, Other Results Neck CT 09/16/17 0000 Signed Impressions: Service Date/Time: Saturday, September 16, 2017 13:04 - CONCLUSION: Adenopathy on the right with the confluence mass in the right subclavicular region. Meniscectomy disease to C7. MRI could be used to exclude cord involvement. Mass in the right neck has been biopsied under ultrasound. Bladimir Dick MD FACR Lymph Node Biopsy Ultrasound 09/15/17 0000 Signed Impressions: Service Date/Time: Friday, September 15, 2017 15:07 - CONCLUSION: 1. Uncomplicated ultrasound guided 18 gauge core biopsies of right supraclavicular mass. Semaj Augustin MD Chest CT 09/14/17 0000 Signed Impressions: Service Date/Time: Thursday, September 14, 2017 11:08 - CONCLUSION: 4 cm soft tissue mass right subclavicular region with extension or metastatic disease into the body of C7. The supraclavicular mass would be amenable to percutaneous biopsy under ultrasound. Bladimir Dick MD FACR Brain MRI 09/14/17 0000 Signed Impressions: Service Date/Time: Thursday, September 14, 2017 10:27 - CONCLUSION: 1. Small retention cyst in the inferior aspect of the right maxillary antra and a subcutaneous 2 cm sebaceous cyst in the soft tissues overlying the left side of the occiput. 2. Otherwise negative. Intracranial structures are all radiographically normal. Chaparro Valdez MD Chest X-Ray 09/13/17 2259 Signed Impressions: Service Date/Time: Wednesday, September 13, 2017 23:17 - CONCLUSION: No acute disease. Darrel De La O MD Medical Decision Making Impression and Plan Impression: 1. Right C5 vertebral lesion with nearly 50% vertebral body destruction, significant impingement on the right C4 5 and C5 6 neural foramen. Pathology consistent with papillary thyroid carcinoma per report. 2. Right C5-6 radiculopathy with sensory motor deficit and persistent severe pain Plan: Findings were discussed with the patient in the presence of oncology nurse practitioner this morning. Gen. treatment options have been discussed. Final pathology report was pending at the time of discussion with the patient this morning. He would like to discuss general prognosis and potential chemotherapy treatment options with medical oncology prior to making a decision regarding possible surgical intervention. He is tentatively scheduled for surgery for C5 partial, possible total corpectomy, vertebral body reconstruction for resection right C5 level neoplasm. He understands that due to the location and size of the lesion that the risk of spinal cord or nerve damage spinal fluid leak, vertebral artery injury with potential for stroke, as well as dysphagia or hoarseness of voice are significantly increased with surgical resection of this lesion. Jeancarlos Marinelli MD Sep 16, 2017 19:07
[2017-09-16 21:57] VITALS: BP 154/90; PULSE 99; RESP 18; TEMP 98.1; O2SAT 97
[2017-09-16] MEDS: ALPRAZolam 0.5 MG TAB PO PRN (22:10)
[2017-09-17] VITALS (7 sets, daily range): BP systolic 113–147; BP diastolic 71–99; PULSE 68–106; RESP 16–21; TEMP 97.8–98.8; O2SAT 93–97
[2017-09-17] MEDS: MORPHINE SULFATE 8 MG/ML INJ IV PUSH PRN ×4 (00:06→17:22)
[2017-09-17] MEDS: SODIUM CHLORIDE 0.9% FLUSH 10 ML FLUSH IV FLUSH SCH ×2 (09:23→21:54)
[2017-09-17] MEDS: REMOVE OLD PATCH T-DERMAL SCH (09:24)
[2017-09-17] MEDS: NICOTINE 21 MG/24 HR PATCH T-DERMAL SCH (09:24)
[2017-09-17] MEDS: LOSARTAN 25 MG TAB PO SCH ×2 (09:25→21:53)
[2017-09-17] MEDS: DOCUSATE SODIUM 50 MG/SENNA 8.6 MG TAB PO SCH ×2 (09:26→21:52)
[2017-09-17] MEDS: NIFEdipine 30 MG SUSTAINED RELEASE TAB PO SCH (09:26)
[2017-09-17] MEDS: buPROPion HCL 100 MG TAB PO SCH (09:26)
--- NOTE | 2017-09-17 12:09 | PD.CONS ---
Consult Service Palliative Care Consult Requested By Dr. Lynn Primary Care Physician Unknown Reason for Consultation a. To assist with evaluation and management of symptoms including: Pain, anxiety b. To assist medical decision maker(s) with: better understanding of current medical conditions; weighing benefits/burdens of medical treatment options; making medical treatment decisions. HPI History of Present Illness Mr. Daniel is a 56-year-old male with a past medical history of hypertension, depression, tobacco abuse and anxiety. Patient presented to the ER on 09/13/17 complaining of progressive severe neck pain that radiated down to his right upper extremity and he also had numbness and mild weakness to the same extremity. Patient started having pain to right upper extremity in August. A cervical MRI without contrast was done outpatient which showed a C4 and C5 lesion. Another cervical MRI with contrast was done and it showed cervical lesion with a large right supra clavicular mass and destructive lesion of the C5 vertebral body with metastatic lesions noted to T2 and T3 vertebral bodies. Patient saw a Neurosurgeon who referred him to an oncologist Dr. Marroquin in [place] and a PET scan was done which confirmed tumors in the right C4 vertebral body, right supraclavicular, with no malignancy or metastasis. Patient`s insurance did not cover biopsy outpatient ,so he was advised to go to the ER by the oncologist for a biopsy. ER Course: * Vital signs: Temperature 98.3, BP 109/85 pulse 120, respiration 16, O2 saturation 98% on room * Hydromorphone 1 mg IV x2 doses for pain, Zofran 4 mg IV for nausea and 500 mL' s normal saline 1 bolus administered * Laboratory workup revealing WBC 14.7, hemoglobin 14.0, potassium 3.5, BUN/ creatinine 18/0.84, calcium 8.4, INR 1.1, total protein 6.7, albumin 3.1 * Chest x-ray revealed no acute disease * Urinalysis unremarkable * Patient admitted for intractable pain related to supraclavicular mass, cervical spine mass. Oncology Dr. Ocasio consulted on 09/14/17. Chest CT on 09/14/17 revealed a 4 cm soft tissue mass right subclavicular region with extension or metastatic disease into the body of C7. Brain MRI on 09/14/17 revealed small retention cyst in the inferior aspect of the right maxillary antra and the subcutaneous 2 cm sebaceous cyst in the soft tissues overlying the left side of the occiput. Patient underwent CT-guided needle biopsy of right neck lymph node mass on 09/15 and results showed papillary thyroid carcinoma. Neurosurgeon Dr. Marinelli consulted for evaluation and management of cervical spine-supraclavicular neoplasm. Patient tentatively scheduled for C5 partial, possible total corpectomy, vertebral body reconstruction for resection right C5 level for neoplasm. Radiation oncology Dr. Joy consulted on 09/16/17 for evaluation of possible radiotherapy treatment options for palliation of pain. Radiation oncology recommended surgical decompression of the cervical spine followed with radiation therapy and to start patient on Decadron therapy. Palliative care consulted to assist with clarification of goals. Patient seen and examined in his room in the ER. Patient sleepy, easily arouses , alert and oriented to self, place and situation. Patient endorsing pain to right neck radiating to right should and right upper arm. Denies numbness. Patient states that pain is briefly alleviated to a 7/10 when he gets pain medication otherwise it`s constant. Vital signs stable. Obtained psychosocial history and events leading to this admission. Patient started having pain in late July and he states that he was prompted to seek medical attention due to progressive pain which caused decreased range of motion to his right upper extremity. Patient is right handed. Patient was able to tell me that he met with different physicians and seemed to remember what they said and recommended. Patient knew that he was not allowed to eat because he is going for surgery sometime this afternoon though he states that he is hungry and craving cigarettes despite the nicotine patch he has. Patient states that he cannot live with this excruciating pain and if surgery may help with alleviating the pain, he wants to proceed with it. He appears to have insight and understanding of his current medical condition. Patient mentions that quality of life is very important to him and is hopeful that he will only need surgery and radiation. He hopes he will not need chemotherapy afterwards. Patient does not have advance directives. Patient designated his son Masoud Daniel to be his health care surrogate(HCS) and his brother David Daniel to be the alternate HCS. Assisted patient with completing HCS form. Patient provided with copy. Encouraged patient to discuss with son and brother, what his health care wishes are and to discuss what he considers as quality of life. Discussed code status and patient elected to be a full code. Patient wants all medical interventions that can help improve his medical status and keep him alive to be done at this time though he expressed that depending on how he does after surgery, he may reevaluate his decision. Case discussed with bedside RN alexander. . Function/Cognitive Trajectory Patient was independent of all his ADLs prior to hospitalization and able to verbalize his needs. Lives alone. . Review of Systems Constitutional: COMPLAINS OF: Pain, DENIES: Fever, Weight loss, Change in appetite Eyes: DENIES: Blurred vision, Eye inflammation, Double Vision Ears, nose, mouth, throat: DENIES: Nasal discharge Respiratory: COMPLAINS OF: Cough, DENIES: Hemoptysis, Shortness of breath Cardiovascular: DENIES: Chest pain, Palpitations, Lower Extremity Edema Gastrointestinal: DENIES: Nausea, Vomiting, Difficulty Swallowing, Vomiting blood Musculoskeletal: COMPLAINS OF: Decreased range of motion, DENIES: Back pain Neurologic: DENIES: Headache, Localized weakness Psychiatric: COMPLAINS OF: Anxiety, Depression Past Family Social History Coded Allergies: No Known Allergies (Verified Allergy, Unknown, 09/13/17) Past Medical History Hypertension Depression Anxiety . Past Surgical History Left Hip Replacement . Reported Medications Bupropion HCl 100 Mg Tab 300 Mg PO DAILY Losartan (Losartan Potassium) 25 Mg Tab 12.5 Mg PO BID Alprazolam 0.5 Mg Tab 0.5 Mg PO Q6H PRN Morphine IR (Morphine Sulfate) 15 Mg Tab 15 Mg PO Q6HR PRN Percocet (Oxycodone-Acetaminophen) 10-325 mg Tab 1 Tab PO Q4H PRN . Current Medications Medications (Trade) Dose Ordered Sig/Marcus Route Start Time Stop Time Status Last Admin (NS Flush) 2 ml UNSCH PRN IV FLUSH 09/14/17 01:00 (NS Flush) 2 ml BID IV FLUSH 09/14/17 09:00 09/17/17 09:23 (Zofran Inj) 4 mg Q6H PRN IVP 09/14/17 01:00 (Tylenol) 650 mg Q6H PRN PO 09/14/17 01:00 (Bre-Colace) 1 tab BID PO 09/14/17 09:00 09/17/17 09:26 (Milk Of Magnesia Liq) 30 ml Q12H PRN PO 09/14/17 01:00 (Senokot) 17.2 mg Q12H PRN PO 09/14/17 01:00 09/16/17 08:31 (Dulcolax Supp) 10 mg DAILY PRN RECTAL 09/14/17 01:00 (Lactulose Liq) 30 ml DAILY PRN PO 09/14/17 01:00 (Xanax) 0.5 mg Q6H PRN PO 09/14/17 02:00 09/16/17 22:10 (Wellbutrin) 300 mg DAILY PO 09/14/17 09:00 09/17/17 09:26 (Cozaar) 12.5 mg BID PO 09/14/17 09:00 09/17/17 09:25 (Pill Splitter) 1 ea UNSCH PRN OTHER 09/14/17 02:00 (Flexeril) 10 mg Q8H PRN PO 09/14/17 03:45 09/14/17 05:04 (Vasotec Inj) 1.25 mg Q6H PRN IV PUSH 09/15/17 00:30 09/15/17 01:01 (Roxicodone) 10 mg Q4H PRN PO 09/15/17 13:00 09/17/17 09:26 (Procardia Xl) 30 mg DAILY PO 09/16/17 09:00 09/17/17 09:26 Miscellaneous Information 1 Q3D T-DERMAL 09/18/17 16:00 (Morphine Inj) 5 mg Q2HR PRN IV PUSH 09/16/17 13:00 09/17/17 07:57 (Duragesic 50 Mcg Patch.72 Hr) 1 patch Q3D T-DERMAL 09/16/17 16:00 09/16/17 16:56 (Habitrol 21 Mg Patch.24 Hr) 1 patch DAILY T-DERMAL 09/17/17 09:00 09/17/17 09:24 Miscellaneous Information 1 DAILY T-DERMAL 09/17/17 09:00 09/17/17 09:24 Family History Father of pancreatic cancer Brother alive and well Patient had a son was killed in an accident 3 months ago and he another son who is alive and well who lives in [place] . Substance Use Tobacco: Current smoker 2 packs per day for at least 40 years. Alcohol: Previously daily alcohol use until the past few weeks Prescription med abuse: Denies Illicits: Denies . 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 Patient has been twice, first and he is from his second . Patient had 2 sons, one 3 months ago from a motor cycle accident and one lives in [place]. Patient loves riding his motorcycle. He lives alone. . Spiritual/Cultural Factors No islam affiliation. . Living Will: Never completed Health Care Surrogate: Copy in medical record Durable Power of Taxation Inspector: Never completed Date completed: 09/17/2017 . Health Care Surrogate(s): [facility]-son Masoud Daniel [phone] Alternate [facility]-brother David Daniel [phone] . Today's verbally stated goals: Aggressive- Patient proceeding with surgery and wants to proceed with radiation therapy after recovery from surgery. . Ethical and Legal Issues None identified at this time . Physical Exam Vital Signs Date Time Temp Pulse Resp B/P (MAP) Pulse Ox O2 Delivery O2 Flow Rate FiO2 09/17/17 08:30 98.0 90 21 131/85 (100) 93 09/17/17 04:49 98.7 88 18 147/99 (115) 95 09/17/17 00:43 98.4 68 18 135/72 (93) 96 09/16/17 21:57 98.1 99 18 154/90 (111) 97 09/16/17 16:25 98.2 100 18 125/94 (104) 97 09/16/17 12:49 98.6 101 18 107/81 (90) 95 Exam CONSTITUTIONAL/GENERAL: This is an adequately nourished patient, in mild discomfort from pain to neck, right shoulder and right upper arm. TUBES/LINES/DRAINS:PIV SKIN: No jaundice, rashes, or lesions. No wounds seen anteriorly. Skin temperature appropriate. Bandaid to right side neck. Not diaphoretic. HEAD: Atraumatic. Normocephalic. EYES: Pupils equal and round and reactive. Extraocular motions intact. No scleral icterus. No injection or drainage. Fundi not examined. ENT: Hearing grossly normal. Nose without bleeding or purulent drainage. Moist oral mucosa. Tenderness to right supraclavicular region. NECK: Trachea midline. Supple, nontender. CARDIOVASCULAR: Regular rate and rhythm without murmurs, gallops, or rubs. No JVD. Peripheral pulses symmetric. RESPIRATORY/CHEST: Symmetric, unlabored respirations. Clear to auscultation. Breath sounds equal bilaterally. No wheezes, rales, or rhonchi. GASTROINTESTINAL: Abdomen soft, non-tender, nondistended. No hepato-splenomegaly , or palpable masses. No guarding. Bowel sounds present. GENITOURINARY: Without palpable bladder distension. Mcgee catheter in place. MUSCULOSKELETAL: Extremities without clubbing, cyanosis, or edema. No joint tenderness or effusion noted. Decreased ROM to RUE NEUROLOGICAL: Sleepy, easily arouses.Alert,oriented to self, place and situation. Motor and sensory grossly within normal limits. Follows commands. Cognitively sharp. Moves all extremities. PSYCHIATRIC: No obvious anxiety/depression. no apparent hallucinations or other psychotic thought process. Diagnostic Tests Laboratory Laboratory Tests Test 09/14/17 14:30 09/15/17 08:50 09/16/17 11:33 09/16/17 14:05 Creatinine 0.67 MG/DL (0.60-1.30) 0.64 MG/DL (0.60-1.30) Estimat Glomerular Filtration Rate 122 ML/MIN (>89) 129 ML/MIN (>89) White Blood Count 13.1 TH/MM3 (4.0-11.0) 9.7 TH/MM3 (4.0-11.0) Red Blood Count 4.59 MIL/MM3 (4.50-5.90) 4.15 MIL/MM3 (4.50-5.90) Hemoglobin 14.1 GM/DL (13.0-17.0) 12.8 GM/DL (13.0-17.0) Hematocrit 41.0 % (39.0-51.0) 37.2 % (39.0-51.0) Mean Corpuscular Volume 89.4 FL (80.0-100.0) 89.6 FL (80.0-100.0) Mean Corpuscular Hemoglobin 30.8 PG (27.0-34.0) 30.9 PG (27.0-34.0) Mean Corpuscular Hemoglobin Concent 34.4 % (32.0-36.0) 34.5 % (32.0-36.0) Red Cell Distribution Width 14.5 % (11.6-17.2) 14.5 % (11.6-17.2) Platelet Count 344 TH/MM3 (150-450) 344 TH/MM3 (150-450) Mean Platelet Volume 7.5 FL (7.0-11.0) 7.1 FL (7.0-11.0) Neutrophils (%) (Auto) 77.0 % (16.0-70.0) 74.5 % (16.0-70.0) Lymphocytes (%) (Auto) 12.4 % (9.0-44.0) 16.2 % (9.0-44.0) Monocytes (%) (Auto) 9.4 % (0.0-8.0) 7.8 % (0.0-8.0) Eosinophils (%) (Auto) 0.6 % (0.0-4.0) 0.8 % (0.0-4.0) Basophils (%) (Auto) 0.6 % (0.0-2.0) 0.7 % (0.0-2.0) Neutrophils # (Auto) 10.1 TH/MM3 (1.8-7.7) 7.2 TH/MM3 (1.8-7.7) Lymphocytes # (Auto) 1.6 TH/MM3 (1.0-4.8) 1.6 TH/MM3 (1.0-4.8) Monocytes # (Auto) 1.2 TH/MM3 (0-0.9) 0.8 TH/MM3 (0-0.9) Eosinophils # (Auto) 0.1 TH/MM3 (0-0.4) 0.1 TH/MM3 (0-0.4) Basophils # (Auto) 0.1 TH/MM3 (0-0.2) 0.1 TH/MM3 (0-0.2) CBC Comment DIFF FINAL DIFF FINAL Differential Comment Prothrombin Time 11.1 SEC (9.8-11.6) Prothromb Time International Ratio 1.1 RATIO Activated Partial Thromboplast Time 28.9 SEC (24.3-30.1) Blood Urea Nitrogen 7 MG/DL (7-18) Random Glucose 108 MG/DL (74-106) Total Protein 7.2 GM/DL (6.4-8.2) Albumin 3.2 GM/DL (3.4-5.0) Calcium Level 9.2 MG/DL (8.5-10.1) Alkaline Phosphatase 60 U/L (45-117) Aspartate Amino Transf (AST/SGOT) 24 U/L (15-37) Alanine Aminotransferase (ALT/SGPT) 73 U/L (12-78) Total Bilirubin 1.2 MG/DL (0.2-1.0) Sodium Level 137 MEQ/L (136-145) Potassium Level 3.7 MEQ/L (3.5-5.1) Chloride Level 104 MEQ/L (98-107) Carbon Dioxide Level 29.0 MEQ/L (21.0-32.0) Anion Gap 4 MEQ/L (5-15) Thyroid Stimulating Hormone 3rd Gen 2.680 uIU/ML (0.358-3.740) Result Diagram: 09/16/17 1133 09/15/17 0850 Imaging Last Impressions Neck CT 09/16/17 0000 Signed Impressions: Service Date/Time: Saturday, September 16, 2017 13:04 - CONCLUSION: Adenopathy on the right with the confluence mass in the right subclavicular region. Meniscectomy disease to C7. MRI could be used to exclude cord involvement. Mass in the right neck has been biopsied under ultrasound. Bladimir Dick MD FACR Lymph Node Biopsy Ultrasound 09/15/17 0000 Signed Impressions: Service Date/Time: Friday, September 15, 2017 15:07 - CONCLUSION: 1. Uncomplicated ultrasound guided 18 gauge core biopsies of right supraclavicular mass. Semaj Augustin MD Chest CT 09/14/17 0000 Signed Impressions: Service Date/Time: Thursday, September 14, 2017 11:08 - CONCLUSION: 4 cm soft tissue mass right subclavicular region with extension or metastatic disease into the body of C7. The supraclavicular mass would be amenable to percutaneous biopsy under ultrasound. Bladimir Dick MD FACR Brain MRI 09/14/17 0000 Signed Impressions: Service Date/Time: Thursday, September 14, 2017 10:27 - CONCLUSION: 1. Small retention cyst in the inferior aspect of the right maxillary antra and a subcutaneous 2 cm sebaceous cyst in the soft tissues overlying the left side of the occiput. 2. Otherwise negative. Intracranial structures are all radiographically normal. Chaparro Valdez MD Chest X-Ray 09/13/17 [id number] Signed Impressions: Service Date/Time: Wednesday, September 13, 2017 23:17 - CONCLUSION: No acute disease. Darrel De La O MD Procedures [id number] right supraclavicular mass biopsy . Patient/Family Conference Family Conference Location: Bedside Issues Discussed: * Palliative care role, purpose, approach * Additional medical, psychosocial, and spiritual history * Patients general health, functional status, and cognitive changes in the months leading up to the current hospitalization * Patient/family understanding of the current medical problems * Patient/family understanding of prognosis * Patients goals of care as best understood from advance directives and/or conversations and/or values * Current medical treatment options and benefits/burdens of those options * Likely scenarios comparing ongoing aggressive care with a transition to comfort measures only * Questions answered to the best of my ability * Palliative care contact information provided Assessment and Plan Disease Oriented Problem List: (1) Supraclavicular mass (2) Cervical spinal mass (3) Leukocytosis (4) Tobacco abuse Symptom Scale: (1) Intractable pain Comment: Complaining of progressive neck pain which radiates to the right upper extremity. Patient has right C4 vertebral body and right supraclavicular tumor. . (2) Anxiety 0-10 Scale: Unable to quantify Comment: Hx of anxiety. Most likely exacerbated with recent cancer diagnosis. . 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 Patient has been twice, first and he is from his second . Patient had 2 sons, one 3 months ago from a motor cycle accident and one lives in [place]. Patient loves riding his motorcycle. He lives alone. Spiritual: No islam affiliation Legal:Patient signed [facility] form 09/17 Ethical issues impacting care: None identified at this time . Important Contacts [facility]-son Masoud Daniel [phone] Alternate [facility]-brother David Daniel [phone] . Prognosis Mr. Daniel is a 56-year-old male with a past medical history of hypertension, depression, tobacco abuse and anxiety. Patient presented to the ER on 09/13/17 complaining of progressive severe neck pain that radiated down to use right upper extremity and also numbness and mild weakness to the same extremity. Chest CT on 09/14/17 revealed a 4 cm soft tissue mass right subclavicular region with extension or metastatic disease into the body of C7. CT-guided needle biopsy of right neck lymph node mass on 09/15/17 and results show papillary thyroid carcinoma. Clinical course complicated with intractable pain. Patient is scheduled for surgery and radiation therapy after recovery. Patient is at risk for further complications. Prognosis at this time is guarded. . Code Status: Full Code Plan PLAN: Legal decision maker: Patient is currently able to make his own medical decisions. In the event that he is incapacitated patient has designated his son Masoud Daniel to be his health care surrogate and his brother David Daniel to be his alternate health care surrogate. Goals: Aggressive CODE STATUS: Full code Patient states that he can leave with this excruciating pain and if surgery may help with alleviating the pain, he wants to proceed with it. Patient appears to have insight and understanding of his current medical condition. Patient mentions that quality of life is very important to him and is hopeful that he will only need surgery and radiation. Patient states that he hopes he will not need chemotherapy afterwards. Patient does not have advance directives. Patient designated his son Masoud Daniel to be his health care surrogate(HCS) and his brother David Daniel to be the alternate HCS. Assisted patient with completing HCS form. Patient provided with copy. Encouraged patient to discuss with son and brother, what his health care wishes are and to discuss what he considers as quality of life. Discussed code status and patient elected to be a full code. Patient wants all medical interventions that can help improve his medical status and keep him alive to be done at this time though he expressed that depending on how he does after surgery, he may reevaluate his decision. SYMPTOMS: * Pain: Patient came in complaining of progressive neck pain which radiates to the right upper extremity. Patient has right C4 vertebral body and right supraclavicular tumor. Currently on 50 mcg fentanyl patch Q 72 hours, morphine sulfate 5 mg Q 2 HRS PRN , oxycodone 10 mg Q 4 hrs prn, cyclobenzaprine 10 mg q 8 hrs prn muscle spasms.Patient is scheduled for surgical decompression of cervical spine today. * Anxiety: Multifactorial. History of anxiety, most likely exacerbated with recent cancer diagnosis. Currently on Xanax 0.5 mg q 6 hrs prn. Palliative care will continue to follow the patient during hospital course as condition evolves, to assist patient/decision-maker with understanding of their medical conditions, weighing benefits/burdens of treatment options, for clarification of goals of treatment. Additionally will assist with any symptoms of palliative concern. Thank you for the opportunity to participate in the care of Mr. Daniel. Attestation To help prompt me to consider important information that might be impacting today's encounter and assessment, information from prior notes written by myself or my colleagues may have been "brought forward" into today's note. My signature on this note, however, is an attestation that I personally performed the exam, history, and/or decision-making noted today, and, unless otherwise indicated, the interactions with patient, family, and staff as well as the review of records all occurred today. I also attest that the listed assessment and stated plan reflect my best clinical judgment today based on the combination of historical information, prior notes, and today's exam/ interactions. When time spent is documented, it refers only to time spent today by the signer, or if indicated, combined time spent today by collaborating physician/nurse practitioner. Cristo Bunn Sep 17, 2017 11:57
--- NOTE | 2017-09-17 12:17 | PD.ONC.PN ---
Subjective Subjective Remarks Afebrile overnight. "when am I going to surgery because I really want coffee and cigarettes. Patient states he is feeling well but is hungry and craving cigarettes. Objective Data Date Time Temp Pulse Resp B/P (MAP) Pulse Ox O2 Delivery O2 Flow Rate FiO2 09/17/17 11:48 98.8 85 16 123/91 (102) 94 09/17/17 08:30 98.0 90 21 131/85 (100) 93 09/17/17 04:49 98.7 88 18 147/99 (115) 95 09/17/17 00:43 98.4 68 18 135/72 (93) 96 09/16/17 21:57 98.1 99 18 154/90 (111) 97 09/16/17 16:25 98.2 100 18 125/94 (104) 97 09/16/17 12:49 98.6 101 18 107/81 (90) 95 09/17/17 09/17/17 09/17/17 07:00 15:00 23:00 Intake Total 720 ml Balance 720 ml Result Diagram: 09/16/17 1133 09/15/17 0850 Laboratory Results Laboratory Tests Test 09/16/17 14:05 Thyroid Stimulating Hormone 3rd Gen 2.680 uIU/ML Administered Medications Medications (Trade) Dose Ordered Sig/Marcus Route PRN Reason Start Time Stop Time Status Last Admin Dose Admin Sodium Chloride (NS Flush) 2 ml BID IV FLUSH 09/14/17 09:00 09/17/17 09:23 Senna/Docusate Sodium (Bre-Colace) 1 tab BID PO 09/14/17 09:00 09/17/17 09:26 Sennosides (Senokot) 17.2 mg Q12H PRN PO Moderate constipation 09/14/17 01:00 09/16/17 08:31 Alprazolam (Xanax) 0.5 mg Q6H PRN PO ANXIETY 09/14/17 02:00 09/16/17 22:10 Bupropion HCl (Wellbutrin) 300 mg DAILY PO 09/14/17 09:00 09/17/17 09:26 Losartan Potassium (Cozaar) 12.5 mg BID PO 09/14/17 09:00 09/17/17 09:25 Cyclobenzaprine HCl (Flexeril) 10 mg Q8H PRN PO MUSCLE SPASM 09/14/17 03:45 09/14/17 05:04 Enalaprilat (Vasotec Inj) 1.25 mg Q6H PRN IV PUSH SBP>160, DBP>90 09/15/17 00:30 09/15/17 01:01 Oxycodone HCl (Roxicodone) 10 mg Q4H PRN PO pain 3-10 09/15/17 13:00 09/17/17 09:26 Nifedipine (Procardia Xl) 30 mg DAILY PO 09/16/17 09:00 09/17/17 09:26 Morphine Sulfate (Morphine Inj) 5 mg Q2HR PRN IV PUSH severe breakthrough pain 09/16/17 13:00 09/17/17 11:56 Fentanyl (Duragesic 50 Mcg Patch.72 Hr) 1 patch Q3D T-DERMAL 09/16/17 16:00 09/16/17 16:56 Nicotine (Habitrol 21 Mg Patch.24 Hr) 1 patch DAILY T-DERMAL 09/17/17 09:00 09/17/17 09:24 Miscellaneous Information 1 DAILY T-DERMAL 09/17/17 09:00 09/17/17 09:24 Objective Remarks GENERAL: Fatigued male, lying supine in bed resting. SKIN: Warm and dry. nicotine patch on left arm. HEAD: Normocephalic. EYES: No injection or drainage. NECK: Supple, trachea midline. CARDIOVASCULAR: Regular rate and rhythm. RESPIRATORY: Breath sounds equal bilaterally. No accessory muscle use. GASTROINTESTINAL: Abdomen soft, non-tender, nondistended. EXTREMITIES: No cyanosis NEUROLOGICAL: No obvious focal deficit. Awake, alert, and oriented x3. Assessment/Plan Problem List: (1) Papillary thyroid carcinoma ICD Codes: C73 - Malignant neoplasm of thyroid gland Plan: --invasive radiology consulted for biopsy of supraclavicular mass. -- Large right supraclavicular mass with cervical mass. --[id number] smoking history and this is concerning for possible lung cancer although there is no reported lung lesion. --face sheet faxed Assessment 56y/o male with cervical mass and supraclavicular mass, admitted with neck pain. HPI (brought forward from initial consult for continuity of care)--started having pain around August and was progressively getting worse. He stated the pain was worse with movement. He was referred to see neurology, had an MRI of the cervical spine done initially without contrast which showed a C4 and C5 lesion. Subsequently he had an MRI with contrast which again showed a cervical lesion with a large right supraclavicular mass. He was then sent to see a neurosurgeon and subsequently sent to see an oncologist in [place], Dr. Marroquin. He stated he had a PET scan done which showed a destructive lesion in C4 and had a right supraclavicular mass but no other distant metastasis. He stated his pain is worse and his insurance does not cover the biopsy. He was told to come to the emergency room for further evaluation. Plan 1. surgery with Dr. Marinelli today 2. ok to d/c when cleared by Neurosurgery 3. follow up in clinic 1-2 weeks post discharge Attending Statement The exam, history, and the medical decision-making described in the above note were completed with the assistance of the mid-level provider. I reviewed and agree with the findings presented. I attest that I had a [id number] encounter with the patient on the same day, and personally performed and documented my assessment and findings in the medical record. Pain is controlled. Extensive discussion with pt regarding the path findings and dx of thyroid carcinoma. Discussed treatment option and prognosis. He is very anxious and has many questions that I answered. He has agreed to proceed with surgery. He will need XRT after recovering from surgery. Thyroid studies are pending. Josy Saldivar Sep 17, 2017 12:17 Jj Ocasio MD Sep 17, 2017 12:52
--- NOTE | 2017-09-17 12:42 | HHI.NSPN ---
(Rodriguez Maya) History Chief Complaint: Neck and right shoulder and arm pain. (Rodriguez Maya) Interval History is a 36-year-old gentleman who complains of onset of right sided neck pain approximately 6 weeks ago. The pain gradually progressed and within another 3 weeks he developed progressive numbness and weakness and finally pain in the right shoulder and proximal arm. He states that for the past 2 or 3 weeks he has not been able to lift his right arm up. He was seen by a neurologist and an MRI of the cervical spine without contrast was ordered followed by an MRI with contrast which was done in [place]. He was seen by neurosurgery in [place] and referred to oncologist, , In [place]. A PET scan was performed which revealed the cervical spine and supraclavicular lesion without evidence of other metastatic disease. 09/16/17: Minimal response to fentanyl patch. 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 He is laying in the stretcher. He states that the neck pain and right shoulder pain persists and now has some pain going into the arm itself. He denied any numbness to the extremity. He endorsed a cough but denied any chest pain, palpitations, irregular heartbeat, shortness of breath, abdominal pain or nausea. Sensation and motor strength appear normal. He does say he is drowsy and slow moving due to the pain medication. He is scheduled for surgery later today. (Rodriguez Maya) Exam Results 09/15/17 09/15/17 09/16/17 09/16/17 09/17/17 09/17/17 06:00 18:00 06:00 18:00 06:00 18:00 Intake Total 720 ml Balance 720 ml Intake Oral 720 ml # Voids 3 3 Vital Signs Date Time Temp Pulse Resp B/P (MAP) Pulse Ox O2 Delivery O2 Flow Rate FiO2 09/17/17 11:48 98.8 85 16 123/91 (102) 94 09/17/17 08:30 98.0 90 21 131/85 (100) 93 09/17/17 04:49 98.7 88 18 147/99 (115) 95 09/17/17 00:43 98.4 68 18 135/72 (93) 96 09/16/17 21:57 98.1 99 18 154/90 (111) 97 09/16/17 16:25 98.2 100 18 125/94 (104) 97 09/16/17 12:49 98.6 101 18 107/81 (90) 95 09/16/17 08:33 98.3 93 18 132/92 (105) 99 09/16/17 04:21 18 09/16/17 04:00 97.8 87 18 189/89 (122) 98 09/16/17 00:00 98.4 68 18 198/104 (135) 98 09/15/17 23:36 18 09/15/17 22:16 18 09/15/17 19:51 98.0 112 18 175/72 (106) 98 09/15/17 15:50 98.1 94 18 138/90 (106) 96 09/15/17 14:26 98.0 91 18 172/101 (124) 98 09/15/17 13:42 98.2 82 16 154/96 (115) 96 09/15/17 08:09 97.8 89 16 154/96 (115) 98 09/15/17 05:02 98.4 84 18 191/105 (133) 97 09/15/17 00:21 98.4 112 18 183/103 (129) 97 09/14/17 16:00 97.1 96 17 138/88 (105) 97 (Rodriguez Maya) Physical Examination GENERAL: Awake but drowsy. Readily interacts. Affect somewhat flat. Appears mildly uncomfortable but not in any distress. HEENT: Normocephalic, atraumatic. PERRLA 3 mm brisk, EOMI. MMM & pink, tongue midline to protrusion. NECK: Midline cervical spine NTTP. Moderately TTP to lower posterolateral cervical-scalene musculature. No JVD. Trachea midline. CARDIOVASCULAR: S1S2 w/RRR w/o M/G/R, radial & pedal pulses 2+ bilaterally, cap refill < 2 sec, no pedal edema. RESPIRATORY: CTAB w/o W/R/R, equal excursion, nonlaboured, on RA. GASTROINTESTINAL: Abdomen rotund, soft, nontender, positive bowel sounds to all quadrants. MUSCULOSKELETAL: PEÑA spontaneously w/o difficulty. No evident clubbing or deformity. Midline thoracolumbar spine NTTP. NEUROLOGICAL: Awake but drowsy, oriented x3. Speech clear & appropriate. Follows simple commands w/o difficulty. CN II through XII appear grossly intact. Sensation is intact to light touch to all extremities. Motor strength is 5/5 to all major flexion & extension muscle groups of the extremities to include wrist flexors & extensors and hand intrinsics & extrinsics. (Rodriguez Maya) Lab, Micro, Other Results Recent Impressions Neck CT 09/16/17 0000 Signed Impressions: Service Date/Time: Saturday, September 16, 2017 13:04 - CONCLUSION: Adenopathy on the right with the confluence mass in the right subclavicular region. Meniscectomy disease to C7. MRI could be used to exclude cord involvement. Mass in the right neck has been biopsied under ultrasound. Bladimir Dick MD FACR Neck CT 09/15/17 0600 Signed Impressions: Service Date/Time: Friday, September 15, 2017 14:56 - CONCLUSION: 1. CT examination for localization of right supraclavicular mass for percutaneous biopsy. Please see above discussion. Semaj Augustin MD Lymph Node Biopsy Ultrasound 09/15/17 0000 Signed Impressions: Service Date/Time: Friday, September 15, 2017 15:07 - CONCLUSION: 1. Uncomplicated ultrasound guided 18 gauge core biopsies of right supraclavicular mass. Semaj Augustin MD Laboratory Tests Test 09/14/17 14:30 09/15/17 08:50 09/16/17 11:33 09/16/17 14:05 Creatinine 0.67 MG/DL 0.64 MG/DL Estimat Glomerular Filtration Rate 122 ML/MIN 129 ML/MIN White Blood Count 13.1 TH/MM3 9.7 TH/MM3 Red Blood Count 4.59 MIL/MM3 4.15 MIL/MM3 Hemoglobin 14.1 GM/DL 12.8 GM/DL Hematocrit 41.0 % 37.2 % Mean Corpuscular Volume 89.4 FL 89.6 FL Mean Corpuscular Hemoglobin 30.8 PG 30.9 PG Mean Corpuscular Hemoglobin Concent 34.4 % 34.5 % Red Cell Distribution Width 14.5 % 14.5 % Platelet Count 344 TH/MM3 344 TH/MM3 Mean Platelet Volume 7.5 FL 7.1 FL Neutrophils (%) (Auto) 77.0 % 74.5 % Lymphocytes (%) (Auto) 12.4 % 16.2 % Monocytes (%) (Auto) 9.4 % 7.8 % Eosinophils (%) (Auto) 0.6 % 0.8 % Basophils (%) (Auto) 0.6 % 0.7 % Neutrophils # (Auto) 10.1 TH/MM3 7.2 TH/MM3 Lymphocytes # (Auto) 1.6 TH/MM3 1.6 TH/MM3 Monocytes # (Auto) 1.2 TH/MM3 0.8 TH/MM3 Eosinophils # (Auto) 0.1 TH/MM3 0.1 TH/MM3 Basophils # (Auto) 0.1 TH/MM3 0.1 TH/MM3 CBC Comment DIFF FINAL DIFF FINAL Differential Comment Prothrombin Time 11.1 SEC Prothromb Time International Ratio 1.1 RATIO Activated Partial Thromboplast Time 28.9 SEC Blood Urea Nitrogen 7 MG/DL Random Glucose 108 MG/DL Total Protein 7.2 GM/DL Albumin 3.2 GM/DL Calcium Level 9.2 MG/DL Alkaline Phosphatase 60 U/L Aspartate Amino Transf (AST/SGOT) 24 U/L Alanine Aminotransferase (ALT/SGPT) 73 U/L Total Bilirubin 1.2 MG/DL Sodium Level 137 MEQ/L Potassium Level 3.7 MEQ/L Chloride Level 104 MEQ/L Carbon Dioxide Level 29.0 MEQ/L Anion Gap 4 MEQ/L Thyroid Stimulating Hormone 3rd Gen 2.680 uIU/ML (Rodriguez Maya) Medical Decision Making Impression and Plan Impression: 1. Right C5 vertebral lesion with nearly 50% vertebral body destruction, significant impingement on the right C4 5 and C5 6 neural foramen. Pathology consistent with papillary thyroid carcinoma per report. 2. Right C5-6 radiculopathy with sensory motor deficit and persistent severe pain Patient is doing fairly well. His pain is not well controlled. His neuro exam is stable w/improvement to the RUE. Intermittent hypertension. Plan: Discussed plan of care with patient. Primary management per Hospitalist. Keep NPO. Patient is scheduled for the OR later today. (Rodriguez Maya) Attending Statement The exam, history, and the medical decision-making described in the above note were completed with the assistance of the mid-level provider. I reviewed and agree with the findings presented. I attest that I had a [id number] encounter with the patient on the same day, and personally performed and documented my assessment and findings in the medical record. Oncology notes reviewed. Discussed treatment options again with patient this morning He wishes to proceed with surgical intervention. He understands that a complete resection of the tumor cannot be achieved in this situation. Surgery may help alleviate some of his severe radicular pain symptoms over the short-term. He will need additional radiation postoperative. Due to surgery scheduling, surgery has been rescheduled for 09/18/2017. (Jeancarlos Marinelli MD) Rodriguez Maya Sep 17, 2017 12:42 Jeancarlos Marinelli MD Sep 17, 2017 22:14
--- NOTE | 2017-09-17 13:50 | HHI.PR ---
Subjective Remarks Patient seen this morning along with oncology service. He reports pain continues. Denies any chest pain or shortness of breath. Denies any nausea or vomiting. Objective Vital Signs Date Time Temp Pulse Resp B/P (MAP) Pulse Ox O2 Delivery O2 Flow Rate FiO2 09/17/17 11:48 98.8 85 16 123/91 (102) 94 09/17/17 08:30 98.0 90 21 131/85 (100) 93 09/17/17 04:49 98.7 88 18 147/99 (115) 95 09/17/17 00:43 98.4 68 18 135/72 (93) 96 09/16/17 21:57 98.1 99 18 154/90 (111) 97 09/16/17 16:25 98.2 100 18 125/94 (104) 97 I/O 09/16/17 09/16/17 09/16/17 09/17/17 09/17/17 09/17/17 07:00 15:00 23:00 07:00 15:00 23:00 Intake Total 720 ml Balance 720 ml Intake Oral 720 ml # Voids 3 Result Diagram: 09/16/17 1133 09/15/17 0850 Objective Remarks GENERAL: Patient lying in bed. Sleeping, wakes up for exam. Appears comfortable. aaox3 SKIN: Warm and dry. HEAD: Normocephalic. EYES: No scleral icterus. No injection or drainage. NECK: Supple, trachea midline. No JVD. CARDIOVASCULAR: Regular rate and rhythm without murmurs, gallops, or rubs. RESPIRATORY: Breath sounds equal bilaterally. No accessory muscle use. GASTROINTESTINAL: Abdomen soft, non-tender, nondistended. MUSCULOSKELETAL: No cyanosis, or edema. BACK: Nontender without obvious deformity. No CVA tenderness. A/P Assessment and Plan // Intractable Pain: secondary to cervical mass. Analgesics/antiemetics as needed, start Flexeril. = Oncology has adjusted pain meds. Appreciate assistance. = Continue pain control. Appreciate oncology's assistance. Patient requests to speak with palliative care service. Patient is amenable to surgery to alleviate pain or radiation, but would not like to do chemotherapy. = Patient undergo surgery today for pain control secondary to C-spine mass. // C-Spine Mass: progressive neck pain, RUE weakness, found to have destructive lesion right C4 on outpatient imaging, pt has CDs and reports at bedside. PET Scan w/ confirmation of destructive tumor and supraclavicular mass , malignancy until proven otherwise. Primary unknown. Obtain all records, may need additional imaging. Will consult Oncology for further recommendations. Will need biopsy for diagnosis. = Biopsy as per oncology. Appreciate oncology assistance. = Follow biopsy results. Appreciate neurosurgery's assistance // Supraclavicular Mass: unclear if associated w/ C-Spine Mass, no other lesions noted on PET. Will continue w/ plan as above. //Leukocytosis: WBC 14, likely reactive. No signs of infection. CXR w/ no acute findings, images reviewed by me. Will repeat labs in am. = White blood cell 13.1. Improving. No fevers. Continue to monitor. = Resolved. No signs of infection = White blood cell count 9.7. Resolved. //Accelerated hypertension. Likely secondary to pain. Cruciate oncology assistance. A systolic blood pressures up into the 180s, will start on nifedipine. monitor. = Blood pressure acceptable continue to monitor. // DVT Prophylaxis: SCD/Teds Discharge Planning Pending oncology, neurosurgery clearance. Lawrence Lynn MD Sep 17, 2017 13:50
[2017-09-18] MEDS: MORPHINE SULFATE 8 MG/ML INJ IV PUSH PRN ×3 (00:39→09:29)
[2017-09-18] MEDS ORDERED: PANTOPRAZOLE SODIUM 40 MG VIAL IV PUSH ONE (01:30)
[2017-09-18 03:19] VITALS: BP 135/85; PULSE 90; RESP 18; TEMP 97.8; O2SAT 95
[2017-09-18 07:26] VITALS: BP 131/81; PULSE 86; RESP 18; TEMP 98; O2SAT 97
[2017-09-18] MEDS: REMOVE OLD PATCH T-DERMAL SCH (09:00)
[2017-09-18] MEDS: NICOTINE 21 MG/24 HR PATCH T-DERMAL SCH (09:24)
[2017-09-18] MEDS: LOSARTAN 25 MG TAB PO SCH ×2 (09:29→21:00)
[2017-09-18] MEDS: NIFEdipine 30 MG SUSTAINED RELEASE TAB PO SCH (09:29)
[2017-09-18] MEDS: DOCUSATE SODIUM 50 MG/SENNA 8.6 MG TAB PO SCH ×2 (09:29→21:00)
[2017-09-18] MEDS: buPROPion HCL 100 MG TAB PO SCH (09:30)
[2017-09-18] MEDS: SODIUM CHLORIDE 0.9% FLUSH 10 ML FLUSH IV FLUSH SCH ×2 (09:31→21:00)
--- NOTE | 2017-09-18 10:47 | HHI.PR ---
Subjective Remarks Patient seen this morning around 9 AM. Says pain is stable.. Denies any chest pain or shortness of breath. Denies any nausea or vomiting. Objective Vital Signs Date Time Temp Pulse Resp B/P (MAP) Pulse Ox O2 Delivery O2 Flow Rate FiO2 09/18/17 07:26 98.0 86 18 131/81 (98) 97 09/18/17 03:19 97.8 90 18 135/85 (102) 95 09/17/17 23:23 98.2 106 18 113/71 (85) 97 09/17/17 19:27 98.5 91 18 125/79 (94) 94 09/17/17 17:25 97.8 92 21 118/74 (89) 93 09/17/17 11:48 98.8 85 16 123/91 (102) 94 I/O 09/17/17 09/17/17 09/17/17 09/18/17 09/18/17 09/18/17 07:00 15:00 23:00 07:00 15:00 23:00 Intake Total 720 ml Balance 720 ml Intake Oral 720 ml # Voids 3 4 Result Diagram: 09/16/17 1133 09/15/17 0850 Objective Remarks GENERAL: Patient lying in bed. awake. Appears comfortable. aaox3 SKIN: Warm and dry. HEAD: Normocephalic. EYES: No scleral icterus. No injection or drainage. NECK: Supple, trachea midline. No JVD. CARDIOVASCULAR: Regular rate and rhythm without murmurs, gallops, or rubs. RESPIRATORY: Breath sounds equal bilaterally. No accessory muscle use. GASTROINTESTINAL: Abdomen soft, non-tender, nondistended. MUSCULOSKELETAL: No cyanosis, or edema. BACK: Nontender without obvious deformity. No CVA tenderness. A/P Assessment and Plan // Intractable Pain: secondary to cervical mass. Analgesics/antiemetics as needed, start Flexeril. = Oncology has adjusted pain meds. Appreciate assistance. = Continue pain control. Appreciate oncology's assistance. Patient requests to speak with palliative care service. Patient is amenable to surgery to alleviate pain or radiation, but would not like to do chemotherapy. = Patient undergo surgery today for pain control secondary to C-spine mass. Surgery had been delayed yesterday secondary to scheduling issues. // C-Spine Mass: progressive neck pain, RUE weakness, found to have destructive lesion right C4 on outpatient imaging, pt has CDs and reports at bedside. PET Scan w/ confirmation of destructive tumor and supraclavicular mass , malignancy until proven otherwise. Primary unknown. Obtain all records, may need additional imaging. Will consult Oncology for further recommendations. Will need biopsy for diagnosis. = Biopsy as per oncology. Appreciate oncology assistance. =Papillary thyroid carcinoma. Appreciate neurosurgery's assistance // Supraclavicular Mass: unclear if associated w/ C-Spine Mass, no other lesions noted on PET. Will continue w/ plan as above. //Leukocytosis: WBC 14, likely reactive. No signs of infection. CXR w/ no acute findings, images reviewed by me. Will repeat labs in am. = White blood cell 13.1. Improving. No fevers. Continue to monitor. = Resolved. No signs of infection = White blood cell count 9.7. Resolved. //Accelerated hypertension. Likely secondary to pain. Cruciate oncology assistance. A systolic blood pressures up into the 180s, will start on nifedipine. monitor. = Blood pressure acceptable continue to monitor. // DVT Prophylaxis: SCD/Teds Discharge Planning Neurosurgery planned for today. Pending oncology, neurosurgery clearance. Lawrence Lynn MD Sep 18, 2017 10:46
--- NOTE | 2017-09-18 10:47 | PD.ONC.PN ---
Subjective Subjective Remarks Afebrile overnight. Patient resting in bed. Waiting to go to OR. Tired of being in the hospital. Pain controlled at present. Objective Data Date Time Temp Pulse Resp B/P (MAP) Pulse Ox O2 Delivery O2 Flow Rate FiO2 09/18/17 07:26 98.0 86 18 131/81 (98) 97 09/18/17 03:19 97.8 90 18 135/85 (102) 95 09/17/17 23:23 98.2 106 18 113/71 (85) 97 09/17/17 19:27 98.5 91 18 125/79 (94) 94 09/17/17 17:25 97.8 92 21 118/74 (89) 93 09/17/17 11:48 98.8 85 16 123/91 (102) 94 Result Diagram: 09/16/17 1133 09/15/17 0850 Administered Medications Medications (Trade) Dose Ordered Sig/Marcus Route PRN Reason Start Time Stop Time Status Last Admin Dose Admin Sodium Chloride (NS Flush) 2 ml BID IV FLUSH 09/14/17 09:00 09/18/17 09:31 Senna/Docusate Sodium (Bre-Colace) 1 tab BID PO 09/14/17 09:00 09/18/17 09:29 Sennosides (Senokot) 17.2 mg Q12H PRN PO Moderate constipation 09/14/17 01:00 09/16/17 08:31 Alprazolam (Xanax) 0.5 mg Q6H PRN PO ANXIETY 09/14/17 02:00 09/16/17 22:10 Bupropion HCl (Wellbutrin) 300 mg DAILY PO 09/14/17 09:00 09/18/17 09:30 Losartan Potassium (Cozaar) 12.5 mg BID PO 09/14/17 09:00 09/18/17 09:29 Cyclobenzaprine HCl (Flexeril) 10 mg Q8H PRN PO MUSCLE SPASM 09/14/17 03:45 09/14/17 05:04 Enalaprilat (Vasotec Inj) 1.25 mg Q6H PRN IV PUSH SBP>160, DBP>90 09/15/17 00:30 09/15/17 01:01 Oxycodone HCl (Roxicodone) 10 mg Q4H PRN PO pain 3-10 09/15/17 13:00 09/18/17 06:56 Nifedipine (Procardia Xl) 30 mg DAILY PO 09/16/17 09:00 09/18/17 09:29 Morphine Sulfate (Morphine Inj) 5 mg Q2HR PRN IV PUSH severe breakthrough pain 09/16/17 13:00 09/18/17 03:59 Fentanyl (Duragesic 50 Mcg Patch.72 Hr) 1 patch Q3D T-DERMAL 09/16/17 16:00 09/16/17 16:56 Nicotine (Habitrol 21 Mg Patch.24 Hr) 1 patch DAILY T-DERMAL 09/17/17 09:00 09/18/17 09:24 Miscellaneous Information 1 DAILY T-DERMAL 09/17/17 09:00 09/18/17 09:00 Objective Remarks GENERAL: Middle aged male, supine in bed resting. SKIN: Warm and dry. nicotine patch on left arm. HEAD: Normocephalic. EYES: No injection or drainage. NECK: Supple, trachea midline. CARDIOVASCULAR: Regular rate and rhythm. RESPIRATORY: Breath sounds equal bilaterally. No accessory muscle use. GASTROINTESTINAL: Abdomen soft, non-tender, nondistended. EXTREMITIES: No cyanosis NEUROLOGICAL: awake and alert, normal speech. moving all extremities. Assessment/Plan Problem List: (1) Papillary thyroid carcinoma ICD Codes: C73 - Malignant neoplasm of thyroid gland Plan: --invasive radiology consulted for biopsy of supraclavicular mass. -- Large right supraclavicular mass with cervical mass. --[id number] smoking history and this is concerning for possible lung cancer although there is no reported lung lesion. --face sheet faxed Assessment 56y/o male with cervical mass and supraclavicular mass, admitted with neck pain. HPI (brought forward from initial consult for continuity of care)--started having pain around August and was progressively getting worse. He stated the pain was worse with movement. He was referred to see neurology, had an MRI of the cervical spine done initially without contrast which showed a C4 and C5 lesion. Subsequently he had an MRI with contrast which again showed a cervical lesion with a large right supraclavicular mass. He was then sent to see a neurosurgeon and subsequently sent to see an oncologist in [place], Dr. Marroquin. He stated he had a PET scan done which showed a destructive lesion in C4 and had a right supraclavicular mass but no other distant metastasis. He stated his pain is worse and his insurance does not cover the biopsy. He was told to come to the emergency room for further evaluation. Plan 1. await corpectomy with Dr. Marinelli today 2. follow up in clinic after discharge. Attending Statement The exam, history, and the medical decision-making described in the above note were completed with the assistance of the mid-level provider. I reviewed and agree with the findings presented. I attest that I had a [id number] encounter with the patient on the same day, and personally performed and documented my assessment and findings in the medical record. Neck pain stable. Await surgery today. Has more questions today which I answered. Can be d/c after clear by neurosurgery and f/u oncology clinic. Josy Saldivar Sep 18, 2017 10:47 Jj Ocasio MD Sep 18, 2017 15:28
[2017-09-18 10:59] VITALS: BP 150/95; PULSE 96; RESP 18; TEMP 97; O2SAT 96
[2017-09-18] MEDS ORDERED: LACTATED RINGER'S 1000 ML INJ 1,000 ML IV ONE (12:00)
[2017-09-18] MEDS ORDERED: LIDOCAINE HCL 1% PF 5 ML SYRINGE OTHER ONE (12:00)
[2017-09-18] MEDS ORDERED: DEXAMETHASONE SOD PHOS 4 MG/ML VIAL IV ONE (12:00)
[2017-09-18] MEDS ORDERED: ePHEDrine/NS 25 MG/5 ML SYRINGE IV ONE (12:00)
[2017-09-18] MEDS ORDERED: NORMOSOL R INJ 1,000 ML IV ONE (12:00)
[2017-09-18] MEDS ORDERED: ROCURONIUM INJ 50 MG/5 ML SYRINGE IV PUSH ONE (12:00)
[2017-09-18] MEDS ORDERED: PROPOFOL 200 MG/20 ML AMP IV ONE (12:00)
[2017-09-18] MEDS ORDERED: PHENYLEPH/NS 1000 MCG/10 ML SYR IV ONE (12:00)
[2017-09-18] MEDS ORDERED: GLYCOPYRROLATE 1 MG/5 ML SYRINGE IV PUSH ONE (12:00)
[2017-09-18] MEDS ORDERED: ceFAZolin INJ 1,000 MG VIAL IV ONE ×2 (12:00→15:45)
[2017-09-18] MEDS ORDERED: ONDANSETRON HCL 4 MG/2 ML VIAL IV ONE (12:00)
[2017-09-18] MEDS ORDERED: PHENYLEPHRINE HCL 10 MG/ML VIAL IV ONE (12:00)
--- NOTE | 2017-09-18 12:00 | HHI.HCPN ---
Reason for visit a. To assist with evaluation and management of symptoms including: Pain, anxiety b. To assist medical decision maker(s) with: better understanding of current medical conditions; weighing benefits/burdens of medical treatment options; making medical treatment decisions. Subjective/Interval History Patient seen and examined in ER in his room. Patient is in bed, awake, alert, oriented to self, place and situation. Patient verbalized that pain is somewhat controlled though any movement aggravates it. Has a 50mcg Fentanyl patch on. Patient has required x 5 prn doses Morphine Sulfate 5mg IVP and x6 prn doses Oxycodone 10mg in the past 24 hours. Patient`s surgery postponed to 09/18/17 afternoon. Denies anxiety. Last dose xanax 0.5mg administered 09/16/17. Patient is NPO. No changes in goals. Patient awaiting to go for surgery. Patient requested that his girlfriend Yenifer Pimentel be called with update after surgery and she will update other family members. . Family/friend interactions No family at bedside. . Advance Directives Living Will: Never completed Health Care Surrogate: Copy in medical record Durable Power of Financial Economist: Never completed Advance Directive Specifics Date completed: 09/17/2017 . Health Care Surrogate(s): [facility]-son Masoud Davisazzo [phone] [facility]-brother David Fredy [phone] . Objective Vital Signs Date Time Temp Pulse Resp B/P (MAP) Pulse Ox O2 Delivery O2 Flow Rate FiO2 09/18/17 10:59 97.0 96 18 150/95 (113) 96 09/18/17 07:26 98.0 86 18 131/81 (98) 97 09/18/17 03:19 97.8 90 18 135/85 (102) 95 09/17/17 23:23 98.2 106 18 113/71 (85) 97 09/17/17 19:27 98.5 91 18 125/79 (94) 94 09/17/17 17:25 97.8 92 21 118/74 (89) 93 09/17/17 11:48 98.8 85 16 123/91 (102) 94 Intake & Output 09/18/17 09/18/17 07:00 19:00 # Voids 4 Physical Exam CONSTITUTIONAL/GENERAL: This is an adequately nourished patient, in mild discomfort from pain to neck, right shoulder and right upper arm. TUBES/LINES/DRAINS:PIV SKIN: No jaundice, rashes, or lesions. No wounds seen anteriorly. Skin temperature appropriate. Bandaid to right side neck. Not diaphoretic. HEAD: Atraumatic. Normocephalic. EYES: Pupils equal and round and reactive. Extraocular motions intact. No scleral icterus. No injection or drainage. Fundi not examined. ENT: Hearing grossly normal. Nose without bleeding or purulent drainage. Moist oral mucosa. Tenderness to right supraclavicular region. NECK: Trachea midline. Supple, nontender. CARDIOVASCULAR: Regular rate and rhythm without murmurs, gallops, or rubs. No JVD. Peripheral pulses symmetric. RESPIRATORY/CHEST: Symmetric, unlabored respirations. Clear to auscultation. Breath sounds equal bilaterally. No wheezes, rales, or rhonchi. GASTROINTESTINAL: Abdomen soft, non-tender, nondistended. No hepato-splenomegaly , or palpable masses. No guarding. Bowel sounds present. GENITOURINARY: Without palpable bladder distension. Mcgee catheter in place. MUSCULOSKELETAL: Extremities without clubbing, cyanosis, or edema. No joint tenderness or effusion noted. Decreased ROM to RUE NEUROLOGICAL: Sleepy, easily arouses.Alert,oriented to self, place and situation. Motor and sensory grossly within normal limits. Follows commands. Cognitively sharp. Moves all extremities. PSYCHIATRIC: No obvious anxiety/depression. no apparent hallucinations or other psychotic thought process. Diagnostic Tests Laboratory Laboratory Tests Test 09/16/17 11:33 09/16/17 14:05 White Blood Count 9.7 TH/MM3 (4.0-11.0) Red Blood Count 4.15 MIL/MM3 (4.50-5.90) Hemoglobin 12.8 GM/DL (13.0-17.0) Hematocrit 37.2 % (39.0-51.0) Mean Corpuscular Volume 89.6 FL (80.0-100.0) Mean Corpuscular Hemoglobin 30.9 PG (27.0-34.0) Mean Corpuscular Hemoglobin Concent 34.5 % (32.0-36.0) Red Cell Distribution Width 14.5 % (11.6-17.2) Platelet Count 344 TH/MM3 (150-450) Mean Platelet Volume 7.1 FL (7.0-11.0) Neutrophils (%) (Auto) 74.5 % (16.0-70.0) Lymphocytes (%) (Auto) 16.2 % (9.0-44.0) Monocytes (%) (Auto) 7.8 % (0.0-8.0) Eosinophils (%) (Auto) 0.8 % (0.0-4.0) Basophils (%) (Auto) 0.7 % (0.0-2.0) Neutrophils # (Auto) 7.2 TH/MM3 (1.8-7.7) Lymphocytes # (Auto) 1.6 TH/MM3 (1.0-4.8) Monocytes # (Auto) 0.8 TH/MM3 (0-0.9) Eosinophils # (Auto) 0.1 TH/MM3 (0-0.4) Basophils # (Auto) 0.1 TH/MM3 (0-0.2) CBC Comment DIFF FINAL Differential Comment Thyroid Stimulating Hormone 3rd Gen 2.680 uIU/ML (0.358-3.740) Result Diagram: 09/16/17 1133 09/15/17 0850 Procedures [id number] right supraclavicular mass biopsy . Assessment and Plan Disease Oriented Problem List: (1) Supraclavicular mass (2) Cervical spinal mass (3) Leukocytosis (4) Tobacco abuse Symptom Scale: (1) Intractable pain Comment: Complaining of progressive neck pain which radiates to the right upper extremity. Patient has right C4 vertebral body and right supraclavicular tumor. . (2) Anxiety 0-10 Scale: Unable to quantify Comment: Hx of anxiety. Most likely exacerbated with recent cancer diagnosis. . 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 Patient has been twice, first and he is from his second . Patient had 2 sons, one 3 months ago from a motor cycle accident and one lives in [place]. Patient loves riding his motorcycle. He lives alone. Spiritual: No muslim affiliation Legal:Patient signed [facility] form 09/17 Ethical issues impacting care: None identified at this time . Important Contacts [facility]-son Masoud Daniel [phone] [facility]-brother David Daniel [phone] Girlfriend- Yenifer Pimentel- [phone] . Prognosis Mr. Daniel is a 56-year-old male with a past medical history of hypertension, depression, tobacco abuse and anxiety. Patient presented to the ER on 09/13/17 complaining of progressive severe neck pain that radiated down to use right upper extremity and also numbness and mild weakness to the same extremity. Chest CT on 09/14/17 revealed a 4 cm soft tissue mass right subclavicular region with extension or metastatic disease into the body of C7. CT-guided needle biopsy of right neck lymph node mass on 09/15/17 and results show papillary thyroid carcinoma. Clinical course complicated with intractable pain. Patient is scheduled for surgery and radiation therapy after recovery. Patient is at risk for further complications. Prognosis at this time is guarded. . Code Status: Full Code Plan PLAN: Legal decision maker: Patient is currently able to make his own medical decisions. In the event that he is incapacitated patient has designated his son Masoud Daniel to be his health care surrogate and his brother David Daniel to be his alternate health care surrogate. Goals: Aggressive CODE STATUS: Full code SYMPTOMS: * Pain: Patient came in complaining of progressive neck pain which radiates to the right upper extremity. Patient has right C4 vertebral body and right supraclavicular tumor. Currently on 50 mcg fentanyl patch Q 72 hours, morphine sulfate 5 mg Q 2 HRS PRN , oxycodone 10 mg Q 4 hrs prn, cyclobenzaprine 10 mg q 8 hrs prn muscle spasms.Patient is scheduled for surgical decompression of cervical spine today. Patient has required x 5 prn doses Morphine Sulfate 5mg IVP and x6 prn doses Oxycodone 10mg in the past 24 hours. Recommending monitoring bowel movement status. * Anxiety: Multifactorial. History of anxiety, most likely exacerbated with recent cancer diagnosis. Currently on Xanax 0.5 mg q 6 hrs prn. Last dose xanax 0.5mg administered 09/16/17. No recommendations. Palliative care will continue to follow the patient during hospital course as condition evolves, to assist patient/decision-maker with understanding of their medical conditions, weighing benefits/burdens of treatment options, for clarification of goals of treatment. Additionally will assist with any symptoms of palliative concern. Attestation To help prompt me to consider important information that might be impacting today's encounter and assessment, information from prior notes written by myself or my colleagues may have been "brought forward" into today's note. My signature on this note, however, is an attestation that I personally performed the exam, history, and/or decision-making noted today, and, unless otherwise indicated, the interactions with patient, family, and staff as well as the review of records all occurred today. I also attest that the listed assessment and stated plan reflect my best clinical judgment today based on the combination of historical information, prior notes, and today's exam/ interactions. When time spent is documented, it refers only to time spent today by the signer, or if indicated, combined time spent today by collaborating physician/nurse practitioner. Cristo Bunn Sep 18, 2017 12:00
[2017-09-18] MEDS ORDERED: GELFOAM SIZE 100 ONE ×2 (13:00→19:18)
[2017-09-18] MEDS ORDERED: GENTAMICIN SULFATE 80 MG/2 ML VIAL ONE (13:00)
[2017-09-18] MEDS ORDERED: THROMBIN (TOPICAL) 5,000 UNIT VIAL ONE (13:00)
[2017-09-18] MEDS ORDERED: LIDOCAINE 1%/EPINEPHrine 1:100,000 SOLN 50 ML VIAL ONE (13:01)
[2017-09-18] MEDS: SODIUM CHLORIDE 0.9% FLUSH 10 ML FLUSH IV FLUSH PRN (13:04)
[2017-09-18] MEDS ORDERED: PROPOFOL 500 MG/50 ML INJ 250 ML ONE (13:33)
[2017-09-18] MEDS ORDERED: SUFentanil INJ 250 MCG/5 ML AMP ONE (14:06)
[2017-09-18] MEDS ORDERED: KETAMINE HCL 500 MG/10 ML VIAL ONE (14:14)
[2017-09-18] MEDS ORDERED: SODIUM CHLORID 0.9% 500 ML IV PRN (14:45)
[2017-09-18] MEDS ORDERED: POVIDONE IODINE 5% (ANTISEPSIS KIT) 4 APPLICATIONS EACH NARE PRN (14:45)
[2017-09-18] MEDS ORDERED: METOPROLOL TARTRATE 25 MG TAB PO PRN (14:45)
[2017-09-18] MEDS ORDERED: LACTATED RINGER'S 1000 ML IV PRN (14:45)
[2017-09-18] MEDS ORDERED: CHLORHEXIDINE GLUCONATE 2 % 1 PACK (2 CLOTHS) TOPICAL PRN (14:45)
[2017-09-18] MEDS ORDERED: REMOVE OLD DURAGESIC (FENTANYL) PATCH T-DERMAL SCH (16:00)
[2017-09-18] MEDS ORDERED: PROPOFOL 500 MG/50 ML INJ 150 ML ONE (18:15)
[2017-09-18] MEDS ORDERED: PHENYLEPHRINE HCL 10 MG/ML VIAL ONE ×3 (19:07→22:47)
[2017-09-18] MEDS ORDERED: MIDAZOLAM HCL 2 MG/2 ML VIAL ONE (19:10)
[2017-09-18] MEDS ORDERED: ceFAZolin 2 GM PREMIX 50 ML ONE (19:43)
--- NOTE | 2017-09-18 21:35 | RADRPT ---
EXAM DATE/TIME: 09/18/2017 19:23 [facility] COMPARISON: No previous studies available for comparison. INDICATIONS : Partial right C5 corpectomy, C4-C5, C5-C6 diskectomy. MEDICAL HISTORY : None. SURGICAL HISTORY : None. ENCOUNTER: Initial ACUITY: 1 day PAIN SCORE: Non-responsive. LOCATION: Bilateral chest FINDINGS: A single lateral view of the cervical spine was performed. There is postoperative fusion across the C 4-5-6 with partial C5 corpectomy. CONCLUSION: 1. Postoperative fusion. Magno Cosby MD on September 18, 2017 at 21:32 Board Certified Radiologist. This report was verified electronically.
[2017-09-18] MEDS ORDERED: PROPOFOL 1000 MG/100 ML INJ 100 ML ONE (21:43)
[2017-09-18] MEDS: PROPOFOL 1000 MG/100 ML INJ 100 ML IV PRN (22:20)
[2017-09-18 22:30] VITALS: O2SAT 97
[2017-09-18] MEDS: D5-NS + KCL 20 MEQ INJ 1,000 ML IV SCH (22:39)
[2017-09-18] MEDS ORDERED: PHENYLEPHRINE INJ 40 MG in DEXTROSE 5% IN WATE 500 ML INJ 496 ML IV PRN ×2 (22:45)
[2017-09-18] MEDS ORDERED: TERBUTALINE INJ 1 MG/ML AMP SQ PRN (22:45)
[2017-09-18] MEDS ORDERED: *morphine SULFATE 10 MG/ML PERIprocedure ONLY ONE (22:50)
--- NOTE | 2017-09-18 23:15 | PD.OP ---
Operative Report Date of Surgery: Sep 18, 2017 Preoperative Diagnosis: (1) Cervical spinal mass (2) Supraclavicular mass (3) Papillary thyroid carcinoma 1. Metastatic carcinoma to cervical spine-C5 vertebral body with compression exiting right C5 and C6 nerve roots 2. Metastatic carcinoma to right anterolateral neck-shaft clavicular region Postoperative Diagnosis: (1) Cervical spinal mass (2) Supraclavicular mass (3) Papillary thyroid carcinoma 1. Metastatic carcinoma to cervical spine-C5 vertebral body with compression exiting right C5 and C6 nerve roots 2. Metastatic carcinoma to right anterolateral neck-shaft clavicular region Procedure: 1. C5 corpectomy, resection of metastatic vertebral body and paraspinous neoplasm 2. C5 vertebral body reconstruction with carbon fiber cage, demineralized bone matrix 3. C4-6 anterior cervical instrumentation 4. Subtotal resection right anterior neck-shaft clavicular metastatic neoplasm Anesthesia: Gen. Surgeon: Jeancarlos Marinelli Sales Analyst(s): Cynthia Tinoco Operation and Findings: Findings: Moderately firm neoplasm was approximately 50% destruction of the C5 vertebral body. Significant instability at the C4-5 level. Partial erosion of the right inferior lateral C4 and superior lateral C6 vertebral bodies. Significant compression of the exiting right C5 and C6 nerve roots. Very firm right supraclavicular-anterior neck neoplasm with significant compression of the right carotid artery. Procedure in detail: The patient was brought into the operating room and positioned in supine position on the 3080 table with the head and neck in neutral position. Mcgee catheter was placed. Lines were established by Anesthesia. Gen. endotracheal anesthesia was induced without difficulty, taking care not to significantly flex or extend the patient's neck during intubation and positioning. Leads for intraoperative neuro monitoring were placed and a baseline study obtained. All extremities were appropriately padded. The neck and upper chest were shaved with clippers and sterilely prepped and draped. Appropriate timeout procedure was performed with all personnel present and in agreement 1% Xylocaine with epinephrine was used for local infiltration over the incision site which was made transversely at the right C6 level and carried sharply down through the platysma muscle. The exposure was continued medial to the sternocleidomastoid muscle and carotid artery, and lateral to the trachea and esophagus. The initial dissection was carried medial to the rather large firm palpable mass at the right anterior neck-supraclavicular region. The carotid artery was delineated above and below the mass and preserved. The prevertebral fascia was elevated away from the anterior longitudinal ligament with a Kitner sponge. The longus coli muscle on each side was elevated with the Cornejo elevator. The self-retaining retractor was placed with the blades beneath the longus coli muscle on each side. The appropriate levels were confirmed with intraoperative C-arm and preoperative imaging studies. The microscope was brought into place and used for the remainder of the procedure including the closure. The 14 mm distraction pins were used as needed for gentle distraction during the procedure. The discectomy and segmental resection of posterior osteophyte was initially performed at the C4 5 and C5 6 levels. At each level the anterior osteophyte was resected with the Leksell rongeur. The disc and annulus was incised with a 15 blade knife and discectomy performed with pituitary biopsy forceps and straight and angled curettes. The TPS drill with the 5 mm barrel bur was used to decorticate the endplates and removed the majority of the osteophyte along the anterior spinal canal as well as the right and left uncovertebral joint. The thin ligament dissector was used to free up the posterior annulus and ligament from the vertebral body margin sequentially at the C4 5 and C5 6 level. At the right C5 vertebral body, the moderately firm soft tissue mass was encountered. There appeared to be quite a bit of instability at the C4-5 segment. It was elected to proceed with the C5 corpectomy to fully resect the C5 vertebral body component of the neoplasm and fully decompress the spinal canal and right C4 5 and C5 6 foramen and exiting nerve roots. The Leksell rongeur was used to remove the majority of the C5 vertebral body. The TPS drill was used to thin out the remaining posterior cortical rim of bone. The remaining bone was then lifted away from the dura along with hypertrophied and calcified posterior longitudinal ligament using the thin ligament dissector and further removed with the 3 mm thin footplate Kerrison rongeur. Plan see left side of the C5 vertebral body was removed, the soft tissue neoplasm destroying the right side of the vertebral body was gently lifted away from the posterior longitudinal ligament and remaining C4 5 and C5 6 annulus. The dissectors were then used to carefully elevate the remaining right C5 paraspinous component of the tumor away from the exiting right C5 and C6 nerve roots. The vertebral artery was protected in a thin layer of residual fascia along the lateral aspect of the neoplasm. The Synthes carbon fiber cage with a superior lordotic angle was then chosen based on the measurements of the corpectomy site using the calipers. The cage was packed with demineralized bone matrix and inserted at the C5 corpectomy site with a good fit of the cage. The distraction was then released and the distraction pins removed. The appropriate size Precision anterior cervical plate was then chosen and the bone screws were placed with the 16 mm fixed and variable screws utilized with the variable screws at the caudal most level and the 16 mm fixed screws at the cephalad level of the decompression. The screws were firmly secured and the locking cams engaged. The entire construct was checked with intraoperative C-arm and felt to be satisfactory. Next attention was turned to the right supraclavicular mass extending to the right anterolateral neck. The carotid artery was again delineated proximal and distal to the mass. The carotid artery appeared to be rather severely compressed by the overlying mass and it was elected to perform a limited resection of the lesion to decompress artery. A resection plane was developed along the capsule of the mass at its anterior medial extent and follow down to the inferior medial aspect of the mass to free up the traversing carotid artery from the lesion. The mass was extremely firm and could not be readily removed with suction or bipolar. In order to decompress the carotid artery and adjacent neural structures, the incision was made in the medial capsule and the dissectors and pituitary biopsy forceps used to debulk the lesion. The tissue plane surrounding the mass became very obscured over the more lateral extent of the lesion and a clean plane of dissection could not be developed. The resection of the lesion was thus limited to the more medial half of the mass. The carotid artery was checked at the end of the procedure and felt to be well decompressed. All neurovascular structures were carefully preserved. The 10 Kinyarwanda drain was brought out through a small incision in the right lower neck and secured to the skin with nylon suture and attached to sterile suction. The closure was performed with 3-0 Vicryl running for the platysma and interrupted for the subcutaneous closure, with 4-0 Vicryl running for the subcuticular closure. A dressing of sterile Mastisol, Steri-Strips, and Primapore dressing was placed. The patient was placed into a cervical collar, and taken to recovery room in stable condition. All counts were correct at the end of the case. Estimated blood loss was 800 cc Specimen of the C5 vertebral body and supraclavicular neoplasm was sent separately for permanent pathology evaluation. Intraoperative neuro monitoring remained stable during the procedure. Jeancarlos Marinelli MD Sep 18, 2017 23:15
[2017-09-18 23:44] VITALS: O2SAT 99
[2017-09-19] VITALS (16 sets, daily range): BP systolic 99–138; BP diastolic 64–86; PULSE 77–121; RESP 16–24; TEMP 97.6–98.6; O2SAT 96–99
[2017-09-19 00:35] LABS: AUTOMATED NEUTROPHIL # 12.7 TH/MM3 (1.8-7.7); BASOPHIL # 0.2 TH/MM3 (0-0.2); BASOPHIL % 1.3 % (0.0-2.0); EOSINOPHIL % 0.2 % (0.0-4.0); HEMATOCRIT 32.1 % (39.0-51.0); LYMPH % 2.8 % (9.0-44.0); LYMPHOCYTE # 0.4 TH/MM3 (1.0-4.8); MEAN CORPUSCULAR HEMOGLOBIN 30.6 PG (27.0-34.0); MEAN CORPUSCULAR HGB CONC 34.4 % (32.0-36.0); MEAN PLATELET VOLUME 8.2 FL (7.0-11.0); MONO % 1.7 % (0.0-8.0); MONOCYTE # 0.2 TH/MM3 (0-0.9); PLATELET COUNT 303 TH/MM3 (150-450); RED CELL DISTRIBUTION WIDTH 14.1 % (11.6-17.2); WHITE BLOOD COUNT 13.5 TH/MM3 (4.0-11.0)
[2017-09-19 00:59] LABS: BICARBONATE 27.9 MEQ/L (21.0-32.0); CALCIUM 8.1 MG/DL (8.5-10.1); CREATININE 0.54 MG/DL (0.60-1.30)
--- NOTE | 2017-09-19 01:45 | PD.CONS ---
HPI Service Critical Care Medicine Consult Requested By Dr. Marinelli Reason for Consult Vent and medical management Primary Care Physician Unknown History of Present Illness 56-year-old male with past medical history of hypertension, depression, anxiety who was originally admitted to [facility] emergency department after presenting with severe neck pain radiating down his arm with right upper extremity numbness. He had a known right supraclavicular mass that had previously been imaged in August with MRI reportedly showing C4-C5 mass and right supraclavicular mass with distructive lesion of C5. He had been undergoing outpatient evaluations but presented to [place] due to intractable pain. CT neck was performed 09/15/17 and demonstrated 4 cm right supraclavicular mass with lytic vertebral body mass. He underwent biopsy 09/15 that showed papillary thyroid carcinoma. Today he has undergone C5 Corpectomy, C5 vertebral body reconstruction and subtotal resection of right anterior neck neoplasm by Dr. Marinelli. He will remain intubated postoperatively for maintenance of upper airway. Critical care medicine has been consulted for ventilator and medical management. Review of Systems ROS Limitations: Intubated Past Family Social History Allergies: Coded Allergies: No Known Allergies (Verified Allergy, Unknown, 09/13/17) Past Medical History Anxiety Depression Hypertension Metastatic papillary thyroid carcinoma He had previously seen neurologist, Dr. Howell in [place]. Had seen a neurosurgeon in [place]. Followed by Dr. Marroquin in [place] with oncology. Previously had PET scan confirming right supraclavicular tumor with vertebral body distraction without metastases elsewhere. Past Surgical History Left hip replacement Family History Father of pancreatic cancer Social History Smokes tobacco cigarettes per day for the last 35 years with ongoing smoking. Occasional alcohol use Retired [employer] police officer Physical Exam Vital Signs Vital Signs Date Time Temp Pulse Resp B/P (MAP) Pulse Ox O2 Delivery O2 Flow Rate FiO2 09/19/17 00:00 50 09/19/17 00:00 93 09/19/17 00:00 98.5 101 16 121/71 (88) 99 09/18/17 23:30 98.6 101 12 112/74 (87) 100 Mechanical Ventilator 50 116/67 (83) 09/18/17 23:15 101 12 109/69 (82) 100 Mechanical Ventilator 50 114/68 (83) 09/18/17 23:00 109 12 103/65 (78) 98 Mechanical Ventilator 50 104/64 (77) 09/18/17 22:45 112 97/64 09/18/17 22:45 112 97/64 09/18/17 22:45 112 16 97/64 (75) 95 Mechanical Ventilator 50 99/59 (72) 09/18/17 22:15 94 16 118/80 (93) 100 Mechanical Ventilator 50 09/18/17 22:14 98.8 93 12 129/82 (98) 100 Ambu Bag 50 Mechanical Ventilator 09/18/17 10:59 97.0 96 18 150/95 (113) 96 09/18/17 07:26 98.0 86 18 131/81 (98) 97 09/18/17 03:19 97.8 90 18 135/85 (102) 95 Physical Exam Drips: Propofol 5050 g per KG per minute Santhosh-Synephrine 40 mcg/m D5 0.9 NaCl at 100 L per hour GENERAL: Obese male who is orotracheally intubated on sedation SKIN: Warm and dry, adequately perfused. HEAD: Atraumatic. Normocephalic. EYES: Pupils equal and round 3 mm and sluggishly reactive. No scleral icterus. No injection or drainage. ENT: No nasal bleeding or discharge. Mucous membranes pink and moist. NECK: Dressing in place overlying anterior neck. Clean and dry. Cervical collar in place. J-P in place with serosanguineous output. CARDIOVASCULAR: Regular rate and rhythm. No murmurs rubs or gallops. RESPIRATORY: No accessory muscle use. Clear to auscultation. Breath sounds equal bilaterally. GASTROINTESTINAL: Abdomen soft, non-tender, nondistended. : Mcgee in place with yellow urine output. MUSCULOSKELETAL: Extremities without clubbing, cyanosis, or edema. NEUROLOGICAL: Awake and alert, opens eyes and makes eye contact while on vent.. No obvious cranial nerve deficits. Motor grossly within normal limits. Follows commands with firm hand squeeze bilaterally. Laboratory Laboratory Tests Test 09/18/17 15:35 09/18/17 18:58 09/19/17 00:12 Blood Gas Puncture Site ART LINE Blood Gas Patient Temperature 98.6 98.6 Blood Gas HCO3 24 23 Blood Gas Base Excess -0.3 0.0 Blood Gas Oxygen Saturation 97 97 Arterial Blood pH 7.39 7.46 Arterial Blood Partial Pressure CO2 41 33 Arterial Blood Partial Pressure O2 199 180 Arterial Blood Oxygen Content 25.8 23.4 Arterial Blood Carboxyhemoglobin 1.3 1.3 Arterial Blood Methemoglobin 1.2 1.2 Blood Gas Hemoglobin 18.8 17.0 Oxygen Delivery Device O.R. ABG OR Blood Gas Ventilator Setting OR Blood Gas Inspired Oxygen 60 White Blood Count 13.5 Red Blood Count 3.60 Hemoglobin 11.0 Hematocrit 32.1 Mean Corpuscular Volume 89.0 Mean Corpuscular Hemoglobin 30.6 Mean Corpuscular Hemoglobin Concent 34.4 Red Cell Distribution Width 14.1 Platelet Count 303 Mean Platelet Volume 8.2 Neutrophils (%) (Auto) 94.0 Lymphocytes (%) (Auto) 2.8 Monocytes (%) (Auto) 1.7 Eosinophils (%) (Auto) 0.2 Basophils (%) (Auto) 1.3 Neutrophils # (Auto) 12.7 Lymphocytes # (Auto) 0.4 Monocytes # (Auto) 0.2 Eosinophils # (Auto) 0.0 Basophils # (Auto) 0.2 CBC Comment AUTO DIFF Differential Comment AUTO DIFF CONFIRMED Blood Urea Nitrogen 8 Creatinine 0.54 Random Glucose 137 Calcium Level 8.1 Sodium Level 140 Potassium Level 4.2 Chloride Level 107 Carbon Dioxide Level 27.9 Anion Gap 5 Estimat Glomerular Filtration Rate 157 Result Diagram: 09/19/17 0012 09/19/17 0012 Assessment and Plan Assessment and Plan NEURO: Right supraclavicular mass with extension into C5 vertebral body Status post subtotal resection of right supraclavicular mass (to help alleviate compression of right carotid artery) C5 corpectomy with resection of metastatic vertebral body and paraspinous neoplasm. C5 vertebral body reconstruction. by Dr. Marinelli 09/18/17 Neurochecks in [facility]. Monitor DEEPA output with management per neurosurgery Cervical collar in place Decadron 4 g IV every 8 hours Propofol drip for sedation. Target RASS -2. Oxycodone 7.5 one to 2 tabs by mouth every 4 hours as needed for pain. Morphine as needed for breakthrough pain. Previously was on fentanyl 50 g patch but currently not wearing it. RESP: Acute respiratory failure Ventilator bundle Sedation vacation with CPAP trial in am. Assess for cuff leak and extubate if appropriate. CV: Mild hypotension likely sedation related. Monitor hemodynamics. Santhosh-Synephrine to maintain mean arterial pressure greater than 65 GI: Insert Orogastric tube in place to lower intermittent wall suction. FEN/RENAL: Mcgee in place. Monitor intake and output. Monitor elect lites. Replace like to light as indicated per ICU replacement protocol per ID: Received perioperative cefazolin. Monitor for signs and symptoms of infection. HEME/ONC Metastatic papillary thyroid carcinoma Right supraclavicular mass with invasion into C5 vertebral body Had outpatient PET scan that reported no distant metastatic disease. CT guided needle biopsy right supraclavicular mass 09/15/17- papillary thyroid carcinoma. Intraoperative pathology specimen sent 08/18 from resected vertebral mass, report pending. Dr. Ocasio following, follow-up with oncology outpatient clinic when cleared by Neurosurgery. Radiation oncologist following, Dr. Joy ENDO: Mild hyperglycemia may be secondary to steroids. Monitor bedside glucose and initiate low-dose insulin sliding scale as indicated PROPH: SCDs for DVT prophylaxis. Pharmacologic DVT prophylaxis when approved by neurosurgery. Famotidine for stress ulcer prophylaxis. ACCESS: Left radial art line placed in OR 09/18 #1 Full code Level III consult Lurdes Woodson MD Sep 19, 2017 01:45
[2017-09-19] MEDS: PROPOFOL 1000 MG/100 ML INJ 100 ML IV PRN ×2 (02:29→06:13)
[2017-09-19] MEDS ORDERED: POTASSIUM PHOSPHATE MONOBASIC 500 MG TAB PO/TUBE PRN (03:00)
[2017-09-19] MEDS ORDERED: oxyCODONE/ACETAMINOPHEN 7.5 MG/325 MG TAB PO PRN (03:00)
[2017-09-19] MEDS ORDERED: MAGNESIUM SULFATE INJ 2 GM in SODIUM CHLORIDE 0.9% INJ 96 ML IV PRN (03:00)
[2017-09-19] MEDS ORDERED: POTASSIUM CHLOR 40 MEQ PREMIX 100 ML IV PRN ×2 (03:00)
[2017-09-19] MEDS ORDERED: POTASSIUM PHOSPHATE MONOBASIC 500 MG TAB PO PRN (03:00)
[2017-09-19] MEDS ORDERED: POTASSIUM CHLORIDE 25 MEQ EFFERVESCENT TAB PO PRN (03:00)
[2017-09-19] MEDS ORDERED: MAGNESIUM SULFATE INJ 4 GM in SODIUM CHLORIDE 0.9% INJ 92 ML IV PRN (03:00)
[2017-09-19] MEDS ORDERED: POTASSIUM CHLOR 20 MEQ PREMIX 100 ML IV PRN ×2 (03:00)
[2017-09-19] MEDS ORDERED: MAGNESIUM OXIDE 400 MG TAB PO PRN (03:00)
[2017-09-19] MEDS ORDERED: SODIUM PHOSPHATE INJ 30 MMOL in SODIUM CHLOR 0.9% 250 ML INJ 240 ML IV PRN (03:00)
[2017-09-19] MEDS ORDERED: POTASSIUM PHOSPHATE INJ 30 MMOL in SODIUM CHLOR 0.9% 250 ML INJ 250 ML IV PRN (03:00)
--- NOTE | 2017-09-19 03:43 | RADRPT ---
EXAM DATE/TIME: 09/19/2017 02:51 [facility] COMPARISON: CHEST SINGLE AP, September 13, 2017, 23:17. INDICATIONS : Respiratory failure. MEDICAL HISTORY : Hypertension. SURGICAL HISTORY : Lt hip replacement. Cervical fusion. ENCOUNTER: Initial ACUITY: 1 day PAIN SCORE: Non-responsive. LOCATION: Bilateral chest FINDINGS: The lungs are clear without infiltrate, nodule, or mass except for slight right lung base atelectasis medially. There is no appreciable pleural effusion for technique. Heart and mediastinum are unrema rkable. ET tube is present with tip overlapping approximately 3 cm above the mars. There also appea rs to be a right IJ line. CONCLUSION: Slight right lung base atelectasis. Winsome Fernandes MD on September 19, 2017 at 3:41 Board Certified Radiologist. This report was verified electronically.
[2017-09-19] MEDS: MORPHINE SULFATE 8 MG/ML INJ IV PUSH PRN ×5 (03:46→22:12)
[2017-09-19 04:25] LABS: AUTOMATED NEUTROPHIL # 10.2 TH/MM3 (1.8-7.7); BASOPHIL % 0.3 % (0.0-2.0); HEMATOCRIT 32.8 % (39.0-51.0); HEMOGLOBIN 11.3 GM/DL (13.0-17.0); LYMPH % 3.4 % (9.0-44.0); LYMPHOCYTE # 0.4 TH/MM3 (1.0-4.8); MEAN CELL VOLUME 89.3 FL (80.0-100.0); MEAN CORPUSCULAR HEMOGLOBIN 30.7 PG (27.0-34.0); MEAN CORPUSCULAR HGB CONC 34.4 % (32.0-36.0); MEAN PLATELET VOLUME 7.9 FL (7.0-11.0); MONOCYTE # 0.2 TH/MM3 (0-0.9); NEUT % 94.3 % (16.0-70.0); PLATELET COUNT 323 TH/MM3 (150-450); RED BLOOD COUNT 3.67 MIL/MM3 (4.50-5.90); WHITE BLOOD COUNT 10.8 TH/MM3 (4.0-11.0)
[2017-09-19 04:33] LABS: INTERNATIONAL NORMALIZED RATIO 1.2 RATIO; PROTHROMBIN TIME - PATIENT 11.9 SEC (9.8-11.6)
[2017-09-19 04:47] LABS: ALBUMIN 2.5 GM/DL (3.4-5.0); BICARBONATE 27.7 MEQ/L (21.0-32.0); CALCIUM 8.4 MG/DL (8.5-10.1); CREATININE 0.62 MG/DL (0.60-1.30); MAGNESIUM 2.3 MG/DL (1.5-2.5)
[2017-09-19 04:48] LABS: PHOSPHORUS 2.3 MG/DL (2.5-4.9)
[2017-09-19] MEDS: DEXAMETHASONE SOD PHOS 4 MG/ML VIAL IV PUSH SCH ×3 (06:12→21:56)
--- NOTE | 2017-09-19 06:18 | RADRPT ---
EXAM DATE/TIME: 09/19/2017 04:03 [facility] COMPARISON: No previous studies available for comparison. INDICATIONS : NG tube placement MEDICAL HISTORY : Hypertension. SURGICAL HISTORY : Lt hip replacement. Cervical fusion. ENCOUNTER: Initial ACUITY: 1 day PAIN SCORE: Non-responsive. LOCATION: abdomen FINDINGS: NG tube is present with tip barely in the stomach. No definite free air is identified for technique. CONCLUSION: NG tube is present with tip barely in the stomach. Winsome Fernandes MD on September 19, 2017 at 6:15 Board Certified Radiologist. This report was verified electronically.
[2017-09-19] MEDS: CHLORHEXIDINE 0.12% (ORAL KIT) 15 ML CUP MT SCH ×2 (08:56→20:00)
[2017-09-19] MEDS: D5-NS + KCL 20 MEQ INJ 1,000 ML IV SCH ×2 (08:56→18:35)
[2017-09-19] MEDS: SODIUM CHLORIDE 0.9% FLUSH 10 ML FLUSH IV FLUSH SCH ×2 (08:56→21:00)
[2017-09-19] MEDS: DOCUSATE SODIUM 50 MG/SENNA 8.6 MG TAB PO SCH ×2 (08:57→20:42)
[2017-09-19] MEDS: NICOTINE 21 MG/24 HR PATCH T-DERMAL SCH (08:57)
[2017-09-19] MEDS: REMOVE OLD PATCH T-DERMAL SCH (08:57)
[2017-09-19] MEDS: buPROPion HCL 100 MG TAB PO SCH (09:00)
--- NOTE | 2017-09-19 11:22 | HHI.NSPN ---
History Chief Complaint: Status post cervical corpectomy Interval History Patient is status post cervical corpectomy due to metastatic lesion. Impression is that of thyroid carcinoma. Patient remained intubated postop Nurses report he has been stable. At times agitated Exam Results Vital Signs Date Time Temp Pulse Resp B/P (MAP) Pulse Ox O2 Delivery O2 Flow Rate FiO2 09/19/17 09:31 99 40 09/19/17 06:00 85 09/19/17 04:00 97.6 17 99/82 (88) 09/18/17 23:30 Mechanical Ventilator Intake and Output 09/19/17 09/19/17 09/20/17 08:00 16:00 00:00 Intake Total 1035 ml Output Total 1830 ml Balance -795 ml Physical Examination Patient is sedated. Remains intubated and on the respirator. Appears anxious. Will follow some simple commands moves all extremities weakly. Some decrease in the right hand. Lab, Micro, Other Results Labs were reviewed and appear stable Medical Decision Making Impression and Plan Status post cervical corpectomy. Appears stable To be considered for extubation. Will need continued observation Chaz Damon MD Sep 19, 2017 11:22
[2017-09-19] MEDS ORDERED: MIDAZOLAM HCL 2 MG/2 ML VIAL IV PUSH ONE (12:30)
[2017-09-19] MEDS ORDERED: ETOMIDATE 40 MG/20 ML VIAL IV PUSH ONE (12:30)
[2017-09-19] MEDS ORDERED: ROCURONIUM INJ 50 MG/5 ML VIAL IV ONE (12:30)
[2017-09-19] MEDS ORDERED: MIDAZOLAM HCL 5 MG/ML VIAL (1 ML) ONE (12:30)
--- NOTE | 2017-09-19 13:06 | HHI.CCPN ---
History - Height: 175.26 cm Weight: 101.1 kg Allergies: Coded Allergies: No Known Allergies (Verified Allergy, Unknown, 09/13/17) Major 24 Hour Events 56-year-old male with past medical history of hypertension, depression, anxiety who was originally admitted to [facility] emergency department after presenting with severe neck pain radiating down his arm with right upper extremity numbness. He had a known right supraclavicular mass that had previously been imaged in August with MRI reportedly showing C4-C5 mass and right supraclavicular mass with distructive lesion of C5. He had been undergoing outpatient evaluations but presented to [place] due to intractable pain. CT neck was performed 09/15/17 and demonstrated 4 cm right supraclavicular mass with extension into the body of C7, lytic mass of C6. He underwent biopsy that showed papillary thyroid carcinoma. (3) Papillary thyroid carcinoma 1. Metastatic carcinoma to cervical spine-C5 vertebral body with compression exiting right C5 and C6 nerve roots 2. Metastatic carcinoma to right anterolateral neck-shaft clavicular region Postoperative Diagnosis: (1) Cervical spinal mass (2) Supraclavicular mass (3) Papillary thyroid carcinoma 1. Metastatic carcinoma to cervical spine-C5 vertebral body with compression exiting right C5 and C6 nerve roots 2. Metastatic carcinoma to right anterolateral neck-shaft clavicular region Procedure: 1. C5 corpectomy, resection of metastatic vertebral body and paraspinous neoplasm 2. C5 vertebral body reconstruction with carbon fiber cage, demineralized bone matrix 3. C4-6 anterior cervical instrumentation 4. Subtotal resection right anterior neck-shaft clavicular metastatic neoplasm Drips Drips D5 normal saline with 20 mEq KCl 100 cc an hour Vent Settings Respiratory Data Nasal cannula at 2 L Tubes and Drains Drain #1 Date/Location Anterior cervical DEEPA drain Exam Patient Data - Vital Signs Date Time Temp Pulse Resp B/P (MAP) Pulse Ox O2 Delivery O2 Flow Rate FiO2 09/19/17 12:57 99 Nasal Cannula 4 09/19/17 12:57 Nasal Cannula 40 09/19/17 12:00 40 09/19/17 09:31 99 40 09/19/17 08:00 40 09/19/17 06:00 85 09/19/17 05:47 99 40 09/19/17 04:00 97.6 84 17 99/82 (88) 99 09/19/17 04:00 50 09/19/17 04:00 89 09/19/17 02:00 85 09/19/17 00:00 50 09/19/17 00:00 93 09/19/17 00:00 98.5 101 16 121/71 (88) 99 09/18/17 23:44 99 50 09/18/17 23:30 98.6 101 12 112/74 (87) 100 Mechanical Ventilator 50 116/67 (83) 09/18/17 23:15 101 12 109/69 (82) 100 Mechanical Ventilator 50 114/68 (83) 09/18/17 23:00 109 12 103/65 (78) 98 Mechanical Ventilator 50 104/64 (77) 09/18/17 22:45 112 97/64 09/18/17 22:45 112 97/64 09/18/17 22:45 112 16 97/64 (75) 95 Mechanical Ventilator 50 99/59 (72) 09/18/17 22:30 97 50 09/18/17 22:15 94 16 118/80 (93) 100 Mechanical Ventilator 50 09/18/17 22:14 98.8 93 12 129/82 (98) 100 Ambu Bag 50 Mechanical Ventilator Intake & Output 09/19/17 09/19/17 09/20/17 15:00 23:00 07:00 Intake Total 1035 ml Output Total 1830 ml Balance -795 ml IV Total 1035 ml Output Urine Total 1800 ml Drainage Total 30 ml Medications Reviewed in EMR Constitutional General appearance: comfortable Nutritional status: normal Respiratory Respiratory effort: normal Chest appearance: Normal Ausculation: Bilateral: Normal Percussion: Bilateral: Normal Tactile fremitus: Cardiovascular Rhythm: regular Heart sounds: NORMAL: S1, S2 Abnormal heart sounds: Other Gastrointestinal Abdomen description: Bowel sounds: LUQ: Normal, LLQ: Normal, RUQ: Normal, RLQ: Normal Abdominal bruits: Central: None Skin Induration: No Hair: general thinning Nails: Normal Neurologic Cranial nerves: Normal: CN III: Oculomotor, CN V: Trigeminal, CN : Abducent, CN VII: Facial, Not tested: CN I: Olfactory, CN II: Optic, CN IV: Trochlear, CN VIII: Acoustic, CN IX: Glossopharyngeal, CN X: Vagus, CN XI: Accessory, CN XII: Hypoglossal Results CBC/BMP: 09/19/17 0350 09/19/17 0350 Other Results Last Impressions Chest X-Ray 09/19/17 0000 Signed Impressions: Service Date/Time: Tuesday, September 19, 2017 02:51 - CONCLUSION: Slight right lung base atelectasis. Winsome Fernandes MD Abdomen X-Ray 09/19/17 0000 Signed Impressions: Service Date/Time: Tuesday, September 19, 2017 04:03 - CONCLUSION: NG tube is present with tip barely in the stomach. Winsome Fernandes MD Cervical Spine X-Ray 09/18/17 0000 Signed Impressions: Service Date/Time: Monday, September 18, 2017 19:23 - CONCLUSION: 1. Postoperative fusion. Magno Cosby MD Neck CT 09/16/17 0000 Signed Impressions: Service Date/Time: Saturday, September 16, 2017 13:04 - CONCLUSION: Adenopathy on the right with the confluence mass in the right subclavicular region. Meniscectomy disease to C7. MRI could be used to exclude cord involvement. Mass in the right neck has been biopsied under ultrasound. Bladimir Dick MD FACR Lymph Node Biopsy Ultrasound 09/15/17 0000 Signed Impressions: Service Date/Time: Friday, September 15, 2017 15:07 - CONCLUSION: 1. Uncomplicated ultrasound guided 18 gauge core biopsies of right supraclavicular mass. Semaj Augustin MD Chest CT 09/14/17 0000 Signed Impressions: Service Date/Time: Thursday, September 14, 2017 11:08 - CONCLUSION: 4 cm soft tissue mass right subclavicular region with extension or metastatic disease into the body of C7. The supraclavicular mass would be amenable to percutaneous biopsy under ultrasound. Bladimir Dick MD FACR Brain MRI 09/14/17 0000 Signed Impressions: Service Date/Time: Thursday, September 14, 2017 10:27 - CONCLUSION: 1. Small retention cyst in the inferior aspect of the right maxillary antra and a subcutaneous 2 cm sebaceous cyst in the soft tissues overlying the left side of the occiput. 2. Otherwise negative. Intracranial structures are all radiographically normal. Chaparro Valdez MD Daily Goals Daily Goals: Yes: Family Updated last 24 hr Assessment/Plan Assessment/Plan - Patient was extubated successfully at 1 PM. Currently 2 L nasal cannula. No audible stridor. Nursing bedside swallow evaluation and advance diet as tolerated. Resume home medications. Time Spend with Patient Critical Care Minutes: 10 Martin Benitez MD Sep 19, 2017 13:06
[2017-09-19] MEDS ORDERED: DEXTROSE 50% IN WATER 50 ML VIAL(D50) IV PUSH PRN (13:30)
[2017-09-19] MEDS: FAMOTIDINE 20 MG/2 ML VIAL IV PUSH SCH ×2 (13:30→20:42)
[2017-09-19] MEDS ORDERED: GLUCAGON 1 MG/ML VIAL OTHER PRN (13:30)
[2017-09-19] MEDS: fentaNYL 50 MCG/HR PATCH T-DERMAL SCH (16:36)
[2017-09-19] MEDS: oxyCODONE/ACETAMINOPHEN 7.5 MG/325 MG TAB PO PRN ×2 (16:37→20:42)
[2017-09-19] MEDS: INSULIN ASPART SUPPLEMENTAL SCALE SQ SCH (18:32)
[2017-09-20] VITALS (14 sets, daily range): BP systolic 131–166; BP diastolic 67–98; PULSE 90–108; RESP 14–19; TEMP 98–98.7; O2SAT 97–99
[2017-09-20] MEDS: oxyCODONE/ACETAMINOPHEN 7.5 MG/325 MG TAB PO PRN ×2 (00:47→04:49)
[2017-09-20] MEDS: ALPRAZolam 0.5 MG TAB PO PRN (00:47)
[2017-09-20] MEDS: INSULIN ASPART SUPPLEMENTAL SCALE SQ SCH ×5 (01:30→21:00)
[2017-09-20] MEDS: MORPHINE SULFATE 8 MG/ML INJ IV PUSH PRN ×2 (01:50→14:46)
[2017-09-20] MEDS: D5-NS + KCL 20 MEQ INJ 1,000 ML IV SCH (04:32)
[2017-09-20 05:50] LABS: HEMATOCRIT 31.9 % (39.0-51.0); HEMOGLOBIN 10.6 GM/DL (13.0-17.0); MEAN CORPUSCULAR HEMOGLOBIN 29.9 PG (27.0-34.0); MEAN CORPUSCULAR HGB CONC 33.2 % (32.0-36.0); MEAN PLATELET VOLUME 8.4 FL (7.0-11.0); PLATELET COUNT 303 TH/MM3 (150-450); RED BLOOD COUNT 3.55 MIL/MM3 (4.50-5.90); RED CELL DISTRIBUTION WIDTH 14.1 % (11.6-17.2); WHITE BLOOD COUNT 13.6 TH/MM3 (4.0-11.0)
[2017-09-20 06:21] LABS: BICARBONATE 25.8 MEQ/L (21.0-32.0); CALCIUM 8.4 MG/DL (8.5-10.1); CREATININE 0.51 MG/DL (0.60-1.30)
[2017-09-20] MEDS: CHLORHEXIDINE 0.12% (ORAL KIT) 15 ML CUP MT SCH ×2 (07:39→20:00)
[2017-09-20] MEDS: ENALAPRILAT 1.25 MG/ML VIAL IV PUSH PRN (07:59)
[2017-09-20] MEDS: FAMOTIDINE 20 MG/2 ML VIAL IV PUSH SCH (07:59)
[2017-09-20] MEDS: buPROPion HCL 100 MG TAB PO SCH (07:59)
[2017-09-20] MEDS: NICOTINE 21 MG/24 HR PATCH T-DERMAL SCH (08:02)
[2017-09-20] MEDS: REMOVE OLD PATCH T-DERMAL SCH (08:02)
[2017-09-20] MEDS: SODIUM CHLORIDE 0.9% FLUSH 10 ML FLUSH IV FLUSH SCH ×2 (08:15→20:08)
[2017-09-20] MEDS: DOCUSATE SODIUM 50 MG/SENNA 8.6 MG TAB PO SCH ×2 (08:15→21:44)
[2017-09-20] MEDS: SODIUM CHLORIDE 0.9% FLUSH 10 ML FLUSH IV FLUSH PRN ×2 (08:15→14:46)
--- NOTE | 2017-09-20 08:57 | HHI.CCPN ---
Subjective Remarks/Hospital Course 56-year-old male with past medical history of hypertension, depression, anxiety who was originally admitted to [facility] emergency department after presenting with severe neck pain radiating down his arm with right upper extremity numbness. He had a known right supraclavicular mass that had previously been imaged in August with MRI reportedly showing C4-C5 mass and right supraclavicular mass with distructive lesion of C5. He had been undergoing outpatient evaluations but presented to [place] due to intractable pain. CT neck was performed 09/15/17 and demonstrated 4 cm right supraclavicular mass with lytic vertebral body mass. He underwent biopsy 09/15 that showed papillary thyroid carcinoma. Today he has undergone C5 Corpectomy, C5 vertebral body reconstruction and subtotal resection of right anterior neck neoplasm by Dr. Marinelli. He will remain intubated postoperatively for maintenance of upper airway. Critical care medicine has been consulted for ventilator and medical management. Subjective 09/20: Extubated yesterday 09/19 admission without competition. Currently on room air. Objective Vital Signs Date Time Temp Pulse Resp B/P (MAP) Pulse Ox O2 Delivery O2 Flow Rate FiO2 09/20/17 06:00 94 09/20/17 04:00 98.0 14 138/83 (101) 98 09/19/17 20:01 21 09/19/17 12:57 Nasal Cannula 4 Intake and Output 09/20/17 09/20/17 09/21/17 08:00 16:00 00:00 Intake Total 720 ml Output Total 1410 ml Balance -690 ml Result Diagram: 09/20/17 0516 09/20/17 0516 Imaging Last Impressions Chest X-Ray 09/19/17 0000 Signed Impressions: Service Date/Time: Tuesday, September 19, 2017 02:51 - CONCLUSION: Slight right lung base atelectasis. Winsome Fernandes MD Abdomen X-Ray 09/19/17 0000 Signed Impressions: Service Date/Time: Tuesday, September 19, 2017 04:03 - CONCLUSION: NG tube is present with tip barely in the stomach. Winsome Fernandes MD Cervical Spine X-Ray 09/18/17 0000 Signed Impressions: Service Date/Time: Monday, September 18, 2017 19:23 - CONCLUSION: 1. Postoperative fusion. Magno Cosby MD Neck CT 09/16/17 0000 Signed Impressions: Service Date/Time: Saturday, September 16, 2017 13:04 - CONCLUSION: Adenopathy on the right with the confluence mass in the right subclavicular region. Meniscectomy disease to C7. MRI could be used to exclude cord involvement. Mass in the right neck has been biopsied under ultrasound. Bladimir Dick MD FACR Lymph Node Biopsy Ultrasound 09/15/17 0000 Signed Impressions: Service Date/Time: Friday, September 15, 2017 15:07 - CONCLUSION: 1. Uncomplicated ultrasound guided 18 gauge core biopsies of right supraclavicular mass. Semaj Augustin MD Chest CT 09/14/17 0000 Signed Impressions: Service Date/Time: Thursday, September 14, 2017 11:08 - CONCLUSION: 4 cm soft tissue mass right subclavicular region with extension or metastatic disease into the body of C7. The supraclavicular mass would be amenable to percutaneous biopsy under ultrasound. Bladimir Dick MD FACR Brain MRI 09/14/17 0000 Signed Impressions: Service Date/Time: Thursday, September 14, 2017 10:27 - CONCLUSION: 1. Small retention cyst in the inferior aspect of the right maxillary antra and a subcutaneous 2 cm sebaceous cyst in the soft tissues overlying the left side of the occiput. 2. Otherwise negative. Intracranial structures are all radiographically normal. Chaparro Valdez MD Objective Remarks GENERAL: 56-year-old male who is resting in bed in no acute distress SKIN: Warm and dry, adequately perfused. HEAD: Atraumatic. Normocephalic. EYES: Pupils equal and round 3 mm and sluggishly reactive. No scleral icterus. No injection or drainage. ENT: No nasal bleeding or discharge. Mucous membranes pink and moist. NECK: Dressing in place overlying anterior neck. Clean and dry. Cervical collar in place. Anterior cervical J-P in place with serosanguineous output. CARDIOVASCULAR: Regular rate and rhythm. No murmurs rubs or gallops. RESPIRATORY: No accessory muscle use. Clear to auscultation. Breath sounds equal bilaterally. GASTROINTESTINAL: Abdomen soft, non-tender, nondistended. : Mcgee in place with yellow urine output. MUSCULOSKELETAL: Extremities without noted in peripheral edema. NEUROLOGICAL: Awake and alert, cranial nerves II through XII grossly intact. Strength is equal and symmetric bilaterally. Normal sensation. A/P Assessment and Plan NEURO/PSYCH: Right supraclavicular mass with extension into C5 vertebral body Status post subtotal resection of right supraclavicular mass (to help alleviate compression of right carotid artery) C5 corpectomy with resection of metastatic vertebral body and paraspinous neoplasm. C5 vertebral body reconstruction. by Dr. Marinelli 09/18/17 Depression/anxiety Neurochecks in [facility]. Monitor DEEPA output with management per neurosurgery. -10 cc past [address] collar in place acetaminophen 650 mg by mouth every 6 hours when necessary fever/pain 1-2 Schedule OxyContin 10 mg twice a day Oxycodone/acetaminophen 10/325 one to 2 tabs by mouth every 6 hours as needed for pain. Morphine sulfate 5 mg IV every 2 hours as needed for breakthrough pain. Previously was on fentanyl 50 g patch but currently not wearing it.. We'll discontinue At home on morphine IR 50 mill grams every 6 hours as needed and oxycodone/ acetaminophen 10/21 tablet every 4 hours when necessary pain Continue bupropion 300 mg by mouth daily for depression Continue alprazolam 0.5 mill grams by mouth every 6 hours when necessary anxiety Melatonin 5 mill grams of mag when necessary insomnia RESP: Ongoing tobaccoism Nasal cannula to maintain saturations greater than equal to 92% Currently on room air Incentive spirometry while awake Nicotine patch 21 mg daily continue CV: Essential hypertension Resume losartan 25 mg daily. Resume nicardipine 10 mill grams 3 times a day As needed enalapril and labetalol for hypertension Discontinue D5 normal saline with KCl at 200 cc an hour GI: Heart healthy diet. Famotidine for GI prophylaxis Docusate sodium/senna 1 tablet twice a day for bowel regimen FEN/RENAL: Hypophosphatemia Mcgee in place. Monitor intake and output. Replace electrolytes per ICU electrolyte protocol Neutra-Phos 1 tablet 3 times a day 3 dosages ID: Received perioperative cefazolin. Monitor for signs and symptoms of infection. HEME/ONC Metastatic papillary thyroid carcinoma Right supraclavicular mass with invasion into C5 vertebral body Leukocytosis Normocytic anemia Had outpatient PET scan that reported no distant metastatic disease. CT guided needle biopsy right supraclavicular mass 09/15/17- papillary thyroid carcinoma. Intraoperative pathology specimen sent 08/18 from resected vertebral mass, report pending. Dr. Ocasio following, follow-up with oncology outpatient clinic when cleared by Neurosurgery. Radiation oncologist following, Dr. Rufino GRULLON: Mild hyperglycemia may be secondary to steroids. Monitor bedside glucose and initiate low-dose Novulog insulin sliding scale low regimen TSH 2.68. Thyroglobulin pending PROPH: SCDs for DVT prophylaxis. Pharmacologic DVT prophylaxis when approved by neurosurgery. Famotidine for stress ulcer prophylaxis. ACCESS: Left radial art line placed in OR 09/18 #3 discontinued 09/20 Full code Level II follow-up Martin Benitez MD Sep 20, 2017 08:57
[2017-09-20] MEDS ORDERED: THIAMINE HCL 100 MG TAB PO ONE (09:15)
[2017-09-20] MEDS ORDERED: LOSARTAN 25 MG TAB PO ONE (09:15)
[2017-09-20] MEDS: oxyCODONE HCL 10 MG CONTROLLED RELEASE TAB PO SCH ×2 (10:54→21:44)
--- NOTE | 2017-09-20 11:11 | HHI.NSPN ---
History Chief Complaint: Status post cervical corpectomy Interval History Patient is status post cervical corpectomy due to metastatic lesion. Impression is that of thyroid carcinoma. Extubated yesterday Patient reports he is doing well. No significant complaints Exam Results Vital Signs Date Time Temp Pulse Resp B/P (MAP) Pulse Ox O2 Delivery O2 Flow Rate FiO2 09/20/17 10:00 108 09/20/17 09:24 99 21 09/20/17 08:00 98.2 17 166/98 (120) 09/19/17 12:57 Nasal Cannula 4 Intake and Output 09/20/17 09/20/17 09/21/17 08:00 16:00 00:00 Intake Total 720 ml Output Total 1410 ml Balance -690 ml Physical Examination Patient is sitting up in bed is alert and awake. Remains in a [place] J collar Strength in the right arm is improved Drain removed. Wound is clean Medical Decision Making Impression and Plan Status post cervical corpectomy. Doing well and improving Will start to mobilize Chaz Damon MD Sep 20, 2017 11:11
[2017-09-20] MEDS: POTASSIUM PHOSPHATE/SODIUM PHOSPHATE 250 MG TAB PO SCH ×2 (14:45→21:44)
[2017-09-20] MEDS: NIFEdipine 10 MG CAP PO SCH ×2 (14:45→21:43)
[2017-09-20] MEDS: oxyCODONE/ACETAMINOPHEN 10 MG/325 MG TAB PO PRN (18:36)
[2017-09-20] MEDS: MELATONIN 5 MG TAB PO PRN (21:43)
[2017-09-20] MEDS: FAMOTIDINE 20 MG TAB PO SCH (21:44)
[2017-09-21] VITALS (14 sets, daily range): BP systolic 122–179; BP diastolic 71–104; PULSE 84–109; RESP 13–22; TEMP 97.9–98.9; O2SAT 95–99
[2017-09-21] MEDS: MORPHINE SULFATE 8 MG/ML INJ IV PUSH PRN (00:11)
[2017-09-21] MEDS: oxyCODONE/ACETAMINOPHEN 10 MG/325 MG TAB PO PRN ×3 (04:01→18:49)
--- NOTE | 2017-09-21 05:21 | HHI.CCPN ---
Subjective Remarks/Hospital Course 56-year-old male with past medical history of hypertension, depression, anxiety who was originally admitted to [facility] emergency department after presenting with severe neck pain radiating down his arm with right upper extremity numbness. He had a known right supraclavicular mass that had previously been imaged in August with MRI reportedly showing C4-C5 mass and right supraclavicular mass with distructive lesion of C5. He had been undergoing outpatient evaluations but presented to [place] due to intractable pain. CT neck was performed 09/15/17 and demonstrated 4 cm right supraclavicular mass with lytic vertebral body mass. He underwent biopsy 09/15 that showed papillary thyroid carcinoma. Today he has undergone C5 Corpectomy, C5 vertebral body reconstruction and subtotal resection of right anterior neck neoplasm by Dr. Marinelli. He will remain intubated postoperatively for maintenance of upper airway. Critical care medicine has been consulted for ventilator and medical management. 09/20: Extubated yesterday 09/19 admission without competition. Currently on room air. Subjective 09/21: Afebrile. Pain control appears to be his main issues is present time. No bowel movement since surgery. On room air. Objective Vital Signs Date Time Temp Pulse Resp B/P (MAP) Pulse Ox O2 Delivery O2 Flow Rate FiO2 09/21/17 04:00 86 09/21/17 04:00 97.9 15 145/90 (108) 96 09/20/17 20:16 21 09/19/17 12:57 Nasal Cannula 4 Result Diagram: 09/20/17 0516 09/20/17 0516 Imaging Last Impressions Chest X-Ray 09/19/17 0000 Signed Impressions: Service Date/Time: Tuesday, September 19, 2017 02:51 - CONCLUSION: Slight right lung base atelectasis. Winsome Fernandes MD Abdomen X-Ray 09/19/17 0000 Signed Impressions: Service Date/Time: Tuesday, September 19, 2017 04:03 - CONCLUSION: NG tube is present with tip barely in the stomach. Winsome Fernandes MD Cervical Spine X-Ray 09/18/17 0000 Signed Impressions: Service Date/Time: Monday, September 18, 2017 19:23 - CONCLUSION: 1. Postoperative fusion. Magno Cosby MD Neck CT 09/16/17 0000 Signed Impressions: Service Date/Time: Saturday, September 16, 2017 13:04 - CONCLUSION: Adenopathy on the right with the confluence mass in the right subclavicular region. Meniscectomy disease to C7. MRI could be used to exclude cord involvement. Mass in the right neck has been biopsied under ultrasound. Bladimir Dick MD FACR Lymph Node Biopsy Ultrasound 09/15/17 0000 Signed Impressions: Service Date/Time: Friday, September 15, 2017 15:07 - CONCLUSION: 1. Uncomplicated ultrasound guided 18 gauge core biopsies of right supraclavicular mass. Semaj Augustin MD Chest CT 09/14/17 0000 Signed Impressions: Service Date/Time: Thursday, September 14, 2017 11:08 - CONCLUSION: 4 cm soft tissue mass right subclavicular region with extension or metastatic disease into the body of C7. The supraclavicular mass would be amenable to percutaneous biopsy under ultrasound. Bladimir Dick MD FACR Brain MRI 09/14/17 Signed Impressions: Service Date/Time: Thursday, September 14, 2017 10:27 - CONCLUSION: 1. Small retention cyst in the inferior aspect of the right maxillary antra and a subcutaneous 2 cm sebaceous cyst in the soft tissues overlying the left side of the occiput. 2. Otherwise negative. Intracranial structures are all radiographically normal. Chaparro Valdez MD Objective Remarks GENERAL: 56-year-old male who is resting in bed in no acute distress SKIN: Warm and dry, adequately perfused. HEAD: Atraumatic. Normocephalic. EYES: Pupils equal and round 3 mm and sluggishly reactive. No scleral icterus. No injection or drainage. ENT: No nasal bleeding or discharge. Mucous membranes pink and moist. NECK: Dressing in place overlying anterior neck. Clean and dry. Cervical collar in place. Anterior cervical J-P in place with serosanguineous output. CARDIOVASCULAR: Regular rate and rhythm. No murmurs rubs or gallops. RESPIRATORY: No accessory muscle use. Clear to auscultation. Breath sounds equal bilaterally. GASTROINTESTINAL: Abdomen soft, non-tender, nondistended. : Mcgee in place with yellow urine output. MUSCULOSKELETAL: Extremities without noted in peripheral edema. NEUROLOGICAL: Awake and alert, cranial nerves II through XII grossly intact. Strength is equal and symmetric bilaterally. Normal sensation. A/P Assessment and Plan NEURO/PSYCH: Right supraclavicular mass with extension into C5 vertebral body Status post subtotal resection of right supraclavicular mass (to help alleviate compression of right carotid artery) C5 corpectomy with resection of metastatic vertebral body and paraspinous neoplasm. C5 vertebral body reconstruction. by Dr. Marinelli 09/18/17 Depression/anxiety Neurochecks in [facility]. Monitor DEEPA output with management per neurosurgery. -10 cc past 24 hours Cervical collar in place acetaminophen 650 mg by mouth every 6 hours when necessary fever/pain 1-2 Oxycodone/acetaminophen 10/325 one to 2 tabs by mouth every 6 hours as needed for pain. Morphine sulfate 5 mg IV every 2 hours as needed for breakthrough pain. Previously was on fentanyl 50 g patch but currently not wearing it.. We'll discontinue At home on morphine IR 15 mill grams every 6 hours as needed and oxycodone/ acetaminophen 10/21 tablet every 4 hours when necessary pain Continue bupropion 300 mg by mouth daily for depression Continue alprazolam 0.5 mill grams by mouth every 6 hours when necessary anxiety Melatonin 5 mill grams of mag when necessary insomnia RESP: Ongoing tobaccoism Nasal cannula to maintain saturations greater than equal to 92% Currently on room air Incentive spirometry while awake Nicotine patch 21 mg daily continue CV: Essential hypertension Resume losartan 25 mg daily. Resume nicardipine at 10 mill grams 3 times a day As needed enalapril and labetalol for hypertension GI: Heart healthy diet. Famotidine for GI prophylaxis Docusate sodium/senna 1 tablet twice a day for bowel regimen FEN/RENAL: Hypophosphatemia Mcgee in place. Monitor intake and output. Replace electrolytes per ICU electrolyte protocol Neutra-Phos 1 tablet 3 times a day 3 dosages ID: Received perioperative cefazolin. Monitor for signs and symptoms of infection. HEME/ONC Metastatic papillary thyroid carcinoma Right supraclavicular mass with invasion into C5 vertebral body Leukocytosis Normocytic anemia Had outpatient PET scan that reported no distant metastatic disease. CT guided needle biopsy right supraclavicular mass 09/15/17- papillary thyroid carcinoma. Intraoperative pathology specimen sent 08/18 from resected vertebral mass, report pending. Dr. Ocasio following, follow-up with oncology outpatient clinic when cleared by Neurosurgery. Radiation oncologist following, Dr. Rufino GRULLON: Mild hyperglycemia may be secondary to steroids. Monitor bedside glucose and initiate low-dose Novulog insulin sliding scale low regimen TSH 2.68. Thyroglobulin 1641.3 PROPH: SCDs for DVT prophylaxis. Pharmacologic DVT prophylaxis when approved by neurosurgery. Famotidine for stress ulcer prophylaxis. ACCESS: Left radial art line placed in OR 09/18 #3 discontinued 09/20 Full code Level II follow-up Martin Benitez MD Sep 21, 2017 05:21
[2017-09-21] MEDS ORDERED: GLYCERIN ADULT 2 GM SUPP RECTAL PRN (05:30)
[2017-09-21] MEDS: POTASSIUM PHOSPHATE/SODIUM PHOSPHATE 250 MG TAB PO SCH (05:47)
[2017-09-21] MEDS: NIFEdipine 10 MG CAP PO SCH ×3 (05:47→21:00)
[2017-09-21 05:59] LABS: HEMATOCRIT 33.4 % (39.0-51.0); HEMOGLOBIN 11.3 GM/DL (13.0-17.0); MEAN CELL VOLUME 89.1 FL (80.0-100.0); MEAN CORPUSCULAR HEMOGLOBIN 30.1 PG (27.0-34.0); MEAN CORPUSCULAR HGB CONC 33.8 % (32.0-36.0); MEAN PLATELET VOLUME 7.7 FL (7.0-11.0); PLATELET COUNT 357 TH/MM3 (150-450); RED BLOOD COUNT 3.76 MIL/MM3 (4.50-5.90); RED CELL DISTRIBUTION WIDTH 14.1 % (11.6-17.2); WHITE BLOOD COUNT 9.5 TH/MM3 (4.0-11.0)
[2017-09-21 06:23] LABS: BICARBONATE 29.2 MEQ/L (21.0-32.0); CALCIUM 8.4 MG/DL (8.5-10.1); CREATININE 0.48 MG/DL (0.60-1.30)
[2017-09-21] MEDS: SODIUM CHLORIDE 0.9% FLUSH 10 ML FLUSH IV FLUSH SCH ×2 (07:40→20:53)
[2017-09-21] MEDS: CHLORHEXIDINE 0.12% (ORAL KIT) 15 ML CUP MT SCH ×2 (07:40→20:00)
[2017-09-21] MEDS: SODIUM CHLORIDE 0.9% FLUSH 10 ML FLUSH IV FLUSH PRN ×2 (07:40→10:50)
[2017-09-21] MEDS: NICOTINE 21 MG/24 HR PATCH T-DERMAL SCH (07:41)
[2017-09-21] MEDS: REMOVE OLD PATCH T-DERMAL SCH (07:41)
[2017-09-21] MEDS: DOCUSATE SODIUM 50 MG/SENNA 8.6 MG TAB PO SCH ×2 (07:41→20:25)
[2017-09-21] MEDS: THIAMINE HCL 100 MG TAB PO SCH (07:41)
[2017-09-21] MEDS: buPROPion HCL 100 MG TAB PO SCH (07:41)
[2017-09-21] MEDS: POLYETHYLENE GLYCOL 17 GM PKG PO SCH (07:41)
[2017-09-21] MEDS: LOSARTAN 25 MG TAB PO SCH (07:41)
[2017-09-21] MEDS: INSULIN ASPART SUPPLEMENTAL SCALE SQ SCH ×4 (08:00→20:53)
[2017-09-21] MEDS: LACTULOSE SYRUP 20 GM/30 ML CUP PO SCH (08:11)
[2017-09-21] MEDS ORDERED: POTASSIUM CHLORIDE 10 MEQ CONTROLLED RELEASE TAB PO ONE (08:15)
--- NOTE | 2017-09-21 09:37 | HHI.NSPN ---
(Rodriguez Maya) History Chief Complaint: Status post cervical corpectomy (Rodriguez Maya) Interval History is a 36-year-old gentleman who complains of onset of right sided neck pain approximately 6 weeks ago. The pain gradually progressed and within another 3 weeks he developed progressive numbness and weakness and finally pain in the right shoulder and proximal arm. He states that for the past 2 or 3 weeks he has not been able to lift his right arm up. He was seen by a neurologist and an MRI of the cervical spine without contrast was ordered followed by an MRI with contrast which was done in [place]. He was seen by neurosurgery in [place] and referred to oncologist, , In [employer]. A PET scan was performed which revealed the cervical spine and supraclavicular lesion without evidence of other metastatic disease. 09/16/17: Minimal response to fentanyl patch. 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 He is laying in the stretcher. He states that the neck pain and right shoulder pain persists and now has some pain going into the arm itself. He denied any numbness to the extremity. He endorsed a cough but denied any chest pain, palpitations, irregular heartbeat, shortness of breath, abdominal pain or nausea. Sensation and motor strength appear normal. He does say he is drowsy and slow moving due to the pain medication. He is scheduled for surgery later today. 09/18: The patient went for a C5 corpectomy with resection of a metastatic vertebral body and paraspinous neoplasm, followed by a C5 vertebral body reconstruction with carbon fiber cage and C4-6 anterior cervical instrumentation. He also had a subtotal resection of a right anterior neck- shaft clavicular metastatic neoplasm. Post-operatively he remained intubated and was transferred to the ISC unit for further care and monitoring. 09/19: Patient is status post cervical corpectomy due to metastatic lesion. Impression is that of thyroid carcinoma. Patient remained intubated postop. Nurses report he has been stable. At times agitated 09/20: Patient is status post cervical corpectomy due to metastatic lesion. Impression is that of thyroid carcinoma. Extubated yesterday. Patient reports he is doing well. No significant complaints 09/21: The patient is awake and alert sitting up in a chair when seen this morning. He says he is doing good. He does have some muscular pain to the right side of the neck and a sore throat. He denies any headache or dizziness or any pain, numbness, tingling or weakness to the extremities. He is in a [place] J cervical collar. He is tolerating a regular diet. (Rodriguez Maya) Exam Results 09/19/17 09/19/17 09/20/17 09/20/17 09/21/17 09/21/17 06:00 18:00 06:00 18:00 06:00 18:00 Intake Total 4000 ml 1635 ml 720 ml 1200 ml 720 ml Output Total 2965 ml 3050 ml 1410 ml 3700 ml 2400 ml Balance 1035 ml -1415 ml -690 ml -2500 ml -1680 ml Intake Oral 0 ml 600 ml 720 ml 1200 ml 720 ml IV Total 1035 ml Other 4000 ml Output Urine Total 2150 ml 3000 ml 1400 ml 3700 ml 2400 ml Drainage Total 15 ml 50 ml 10 ml Estimated Blood Loss 800 ml # Bowel Movements 0 0 0 0 Vital Signs Date Time Temp Pulse Resp B/P (MAP) Pulse Ox O2 Delivery O2 Flow Rate FiO2 09/21/17 08:00 106 09/21/17 08:00 98.0 98 16 156/97 (116) 95 09/21/17 06:00 84 09/21/17 05:01 12 09/21/17 04:00 86 09/21/17 04:00 97.9 86 15 145/90 (108) 96 09/21/17 02:00 98 09/21/17 00:16 14 09/21/17 00:00 98.4 90 13 122/71 (88) 95 09/21/17 00:00 90 09/20/17 22:44 16 09/20/17 22:00 102 09/20/17 20:16 97 21 09/20/17 20:00 98.4 92 15 149/93 (111) 98 09/20/17 20:00 92 2/18/18 18:00 105 2/18/18 16:00 94 218/18 16:00 98.7 90 19 131/67 (88) 97 18/18 14:00 99 18/18 12:00 98.2 100 17 142/95 (111) 97 18/18 12:00 102 09/20/18 10:00 108 218/18 09:24 99 21 18/18 08:00 92 18/18 08:00 98.2 92 17 166/98 (120) 98 09/20/18 06:00 94 18 04:00 100 18 04:00 98.0 100 14 138/83 (101) 98 18 02:00 102 18 00:00 98.4 108 15 147/90 (109) 98 09/19/18 22:00 112 09/19/18 20:01 98 21 09/19/18 20:00 98.3 121 18 138/86 (103) 98 18 20:00 121 09/19/18 18:00 121 09/19/18 17:37 25 09/19/18 17:37 25 09/19/18 16:00 109 09/19/18 16:00 98.5 109 24 133/81 (98) 96 18 14:00 94 09/19/18 12:57 99 Nasal Cannula 4 18 12:57 Nasal Cannula 40 09/19/18 12:00 94 09/19/18 12:00 40 09/19/18 12:00 98.6 94 20 128/85 (99) 99 18 10:00 92 09/19/18 09:31 99 40 09/19/18 08:00 98.4 78 17 106/64 (78) 99 Arterial Line 09/19/17 08:00 77 09/19/18 08:00 40 09/19/18 06:00 85 09/19/18 05:47 99 40 09/19/18 04:00 97.6 84 17 99/82 (88) 99 09/19/18 04:00 50 09/19/18 04:00 89 09/19/18 02:00 85 17/18 00:00 50 09/19/18 00:00 93 09/19/17 00:00 98.5 101 16 121/71 (88) 99 09/18/17 23:44 99 50 09/18/17 23:30 98.6 101 12 112/74 (87) 100 Mechanical Ventilator 50 116/67 (83) 09/18/17 23:15 101 12 109/69 (82) 100 Mechanical Ventilator 50 114/68 (83) 09/18/17 23:00 109 12 103/65 (78) 98 Mechanical Ventilator 50 104/64 (77) 09/18/17 22:45 112 97/64 09/18/17 22:45 112 97/64 09/18/17 22:45 112 16 97/64 (75) 95 Mechanical Ventilator 50 99/59 (72) 09/18/17 22:30 97 50 09/18/17 22:15 94 16 118/80 (93) 100 Mechanical Ventilator 50 09/18/17 22:14 98.8 93 12 129/82 (98) 100 Ambu Bag 50 Mechanical Ventilator 09/18/17 10:59 97.0 96 18 150/95 (113) 96 (Rodriguez Maya) Physical Examination GENERAL: Awake & alert. Readily interacts. Affect flat. No apparent distress. HEENT: Normocephalic, atraumatic. NECK: In [place] J cervical collar. Midline cervical spine NTTP. Moderately TTP to right lower anterolateral & posterolateral neck musculature. No JVD. Trachea midline. The right anterior surgical incision has a dry & intact dressing w/o any evident shadowing. MUSCULOSKELETAL: PEÑA spontaneously w/o difficulty. No evident clubbing or deformity. NEUROLOGICAL: AAOx3. Speech clear & appropriate. Follows simple commands w/o difficulty. Sensation is intact to light touch to all extremities. Motor strength is 4/5 to the right deltoid o/w it is 5/5 to all major flexion & extension muscle groups of the extremities to include wrist flexors & extensors and hand intrinsics & extrinsics. (Rodriguez Maya) Lab, Micro, Other Results Recent Impressions Chest X-Ray 09/19/17 0000 Signed Impressions: Service Date/Time: Tuesday, September 19, 2017 02:51 - CONCLUSION: Slight right lung base atelectasis. KGet Fernandes MD Abdomen X-Ray 09/19/17 0000 Signed Impressions: Service Date/Time: Tuesday, September 19, 2017 04:03 - CONCLUSION: NG tube is present with tip barely in the stomach. Winsome Fernandes MD Laboratory Tests Test 09/18/17 15:35 09/18/17 18:58 09/19/17 00:12 09/19/17 00:35 Blood Gas Puncture Site ART LINE Blood Gas Patient Temperature 98.6 98.6 Blood Gas HCO3 24 mmol/L 23 mmol/L Blood Gas Base Excess -0.3 mmol/L 0.0 mmol/L Blood Gas Oxygen Saturation 97 % 97 % Arterial Blood pH 7.39 7.46 Arterial Blood Partial Pressure CO2 41 mmHg 33 mmHg Arterial Blood Partial Pressure O2 199 mmHg 180 mmHg Arterial Blood Oxygen Content 25.8 Vol % 23.4 Vol % Arterial Blood Carboxyhemoglobin 1.3 % 1.3 % Arterial Blood Methemoglobin 1.2 % 1.2 % Blood Gas Hemoglobin 18.8 G/DL 17.0 G/DL Oxygen Delivery Device O.R. ABG OR Blood Gas Ventilator Setting OR Blood Gas Inspired Oxygen 60 % White Blood Count 13.5 TH/MM3 Red Blood Count 3.60 MIL/MM3 Hemoglobin 11.0 GM/DL Hematocrit 32.1 % Mean Corpuscular Volume 89.0 FL Mean Corpuscular Hemoglobin 30.6 PG Mean Corpuscular Hemoglobin Concent 34.4 % Red Cell Distribution Width 14.1 % Platelet Count 303 TH/MM3 Mean Platelet Volume 8.2 FL Neutrophils (%) (Auto) 94.0 % Lymphocytes (%) (Auto) 2.8 % Monocytes (%) (Auto) 1.7 % Eosinophils (%) (Auto) 0.2 % Basophils (%) (Auto) 1.3 % Neutrophils # (Auto) 12.7 TH/MM3 Lymphocytes # (Auto) 0.4 TH/MM3 Monocytes # (Auto) 0.2 TH/MM3 Eosinophils # (Auto) 0.0 TH/MM3 Basophils # (Auto) 0.2 TH/MM3 CBC Comment AUTO DIFF Differential Comment AUTO DIFF CONFIRMED Blood Urea Nitrogen 8 MG/DL Creatinine 0.54 MG/DL Random Glucose 137 MG/DL Calcium Level 8.1 MG/DL Sodium Level 140 MEQ/L Potassium Level 4.2 MEQ/L Chloride Level 107 MEQ/L Carbon Dioxide Level 27.9 MEQ/L Anion Gap 5 MEQ/L Estimat Glomerular Filtration Rate 157 ML/MIN Nasal Screen MRSA (PCR) MRSA NOT DETECTED Test 09/19/17 03:05 09/19/17 03:50 09/20/17 05:16 09/21/17 05:34 Blood Gas Puncture Site ART LINE Blood Gas Patient Temperature 98.6 Blood Gas HCO3 25 mmol/L Blood Gas Base Excess 0.6 mmol/L Blood Gas Oxygen Saturation 95 % Arterial Blood pH 7.38 Arterial Blood Partial Pressure CO2 44 mmHg Arterial Blood Partial Pressure O2 88 mmHg Arterial Blood Oxygen Content 17.0 Vol % Arterial Blood Carboxyhemoglobin 1.1 % Arterial Blood Methemoglobin 1.0 % Blood Gas Hemoglobin 12.7 G/DL Oxygen Delivery Device VENTILATOR Blood Gas Ventilator Setting SEE COMMENT Blood Gas Inspired Oxygen 40 % White Blood Count 10.8 TH/MM3 13.6 TH/MM3 9.5 TH/MM3 Red Blood Count 3.67 MIL/MM3 3.55 MIL/MM3 3.76 MIL/MM3 Hemoglobin 11.3 GM/DL 10.6 GM/DL 11.3 GM/DL Hematocrit 32.8 % 31.9 % 33.4 % Mean Corpuscular Volume 89.3 FL 90.0 FL 89.1 FL Mean Corpuscular Hemoglobin 30.7 PG 29.9 PG 30.1 PG Mean Corpuscular Hemoglobin Concent 34.4 % 33.2 % 33.8 % Red Cell Distribution Width 14.0 % 14.1 % 14.1 % Platelet Count 323 TH/MM3 303 TH/MM3 357 TH/MM3 Mean Platelet Volume 7.9 FL 8.4 FL 7.7 FL Neutrophils (%) (Auto) 94.3 % Lymphocytes (%) (Auto) 3.4 % Monocytes (%) (Auto) 2.0 % Eosinophils (%) (Auto) 0.0 % Basophils (%) (Auto) 0.3 % Neutrophils # (Auto) 10.2 TH/MM3 Lymphocytes # (Auto) 0.4 TH/MM3 Monocytes # (Auto) 0.2 TH/MM3 Eosinophils # (Auto) 0.0 TH/MM3 Basophils # (Auto) 0.0 TH/MM3 CBC Comment DIFF FINAL Differential Comment Prothrombin Time 11.9 SEC Prothromb Time International Ratio 1.2 RATIO Activated Partial Thromboplast Time 28.7 SEC Blood Urea Nitrogen 8 MG/DL 8 MG/DL 8 MG/DL Creatinine 0.62 MG/DL 0.51 MG/DL 0.48 MG/DL Random Glucose 194 MG/DL 121 MG/DL 89 MG/DL Albumin 2.5 GM/DL Calcium Level 8.4 MG/DL 8.4 MG/DL 8.4 MG/DL Phosphorus Level 2.3 MG/DL Magnesium Level 2.3 MG/DL Sodium Level 138 MEQ/L 141 MEQ/L 140 MEQ/L Potassium Level 4.1 MEQ/L 3.8 MEQ/L 3.6 MEQ/L Chloride Level 104 MEQ/L 108 MEQ/L 104 MEQ/L Carbon Dioxide Level 27.7 MEQ/L 25.8 MEQ/L 29.2 MEQ/L Anion Gap 6 MEQ/L 7 MEQ/L 7 MEQ/L Estimat Glomerular Filtration Rate 134 ML/MIN 168 ML/MIN 180 ML/MIN (Rodriguez Maya) Medical Decision Making Impression and Plan Impression: 1. Right C5 vertebral lesion with nearly 50% vertebral body destruction, significant impingement on the right C4 5 and C5 6 neural foramen. Pathology consistent with papillary thyroid carcinoma per report. 2. Right C5-6 radiculopathy with sensory motor deficit and persistent severe pain Patient is doing well post-operatively. His pain is controlled. Overall his muscle strength is strong except for the right deltoid is weak. Hypertension yesterday morning at 0800. Reviewed labs for today. Interval improvement in haemoglobin level. POD #3 () s/p: 1. C5 corpectomy, resection of metastatic vertebral body and paraspinous neoplasm 2. C5 vertebral body reconstruction with carbon fiber cage, demineralized bone matrix 3. C4-6 anterior cervical instrumentation 4. Subtotal resection right anterior neck-shaft clavicular metastatic neoplasm Postoperative Diagnosis: (1) Cervical spinal mass (2) Supraclavicular mass (3) Papillary thyroid carcinoma 1. Metastatic carcinoma to cervical spine-C5 vertebral body with compression exiting right C5 and C6 nerve roots 2. Metastatic carcinoma to right anterolateral neck-shaft clavicular region Plan: Discussed plan of care with patient. Primary management per [employer] Up [employer]er/Hospitalist. [place] J cervical collar at all times except for personal hygiene. Mobilise patient w/assistance as needed. Physical & Occupational Therapy. From Neurosurgery's perspective the patient is able to be transferred to a regular med/surg floor. (Zulma,Rodriguez E. COLOR STRAINER) Attending Statement The exam, history, and the medical decision-making described in the above note were completed with the assistance of the mid-level provider. I reviewed and agree with the findings presented. I attest that I had a [id number] encounter with the patient on the same day, and personally performed and documented my assessment and findings in the medical record. (Bryson Rowe MD) Rodriguez Maya Sep 21, 2017 09:37 Bryson Rowe MD Sep 21, 2017 17:46
--- NOTE | 2017-09-21 15:45 | PD.ONC.PN ---
Subjective Subjective Remarks Afebrile Patient reports his pain is improved Now complaining of constipation Objective Data Date Time Temp Pulse Resp B/P (MAP) Pulse Ox O2 Delivery O2 Flow Rate FiO2 09/21/17 12:21 16 09/21/17 10:00 104 09/21/17 09:31 99 21 09/21/17 08:00 106 09/21/17 08:00 98.0 98 16 156/97 (116) 95 09/21/17 06:00 84 09/21/17 05:01 12 09/21/17 04:00 86 09/21/17 04:00 97.9 86 15 145/90 (108) 96 09/21/17 02:00 98 09/21/17 00:16 14 09/21/17 00:00 98.4 90 13 122/71 (88) 95 09/21/17 00:00 90 09/20/17 22:44 16 09/20/17 22:00 102 09/20/17 20:16 97 21 09/20/17 20:00 98.4 92 15 149/93 (111) 98 09/20/17 20:00 92 09/20/17 18:00 105 09/20/17 16:00 94 09/20/17 16:00 98.7 90 19 131/67 (88) 97 09/21/17 09/21/17 09/21/17 07:00 15:00 23:00 Intake Total 720 ml Output Total 2400 ml Balance -1680 ml Result Diagram: 09/21/17 0534 09/21/17 0534 Laboratory Results Laboratory Tests Test 09/21/17 05:34 White Blood Count 9.5 TH/MM3 Red Blood Count 3.76 MIL/MM3 Hemoglobin 11.3 GM/DL Hematocrit 33.4 % Mean Corpuscular Volume 89.1 FL Mean Corpuscular Hemoglobin 30.1 PG Mean Corpuscular Hemoglobin Concent 33.8 % Red Cell Distribution Width 14.1 % Platelet Count 357 TH/MM3 Mean Platelet Volume 7.7 FL Blood Urea Nitrogen 8 MG/DL Creatinine 0.48 MG/DL Random Glucose 89 MG/DL Calcium Level 8.4 MG/DL Sodium Level 140 MEQ/L Potassium Level 3.6 MEQ/L Chloride Level 104 MEQ/L Carbon Dioxide Level 29.2 MEQ/L Anion Gap 7 MEQ/L Estimat Glomerular Filtration Rate 180 ML/MIN Administered Medications Medications (Trade) Dose Ordered Sig/Marcus Route PRN Reason Start Time Stop Time Status Last Admin Dose Admin Sodium Chloride (NS Flush) 2 ml UNSCH PRN IV FLUSH FLUSH AFTER USING IV ACCESS 09/14/17 01:00 09/21/17 10:50 Sodium Chloride (NS Flush) 2 ml BID IV FLUSH 09/14/17 09:00 09/21/17 07:40 Ondansetron HCl (Zofran Inj) 4 mg Q6H PRN IVP NAUSEA OR VOMITING 09/14/17 01:00 09/21/17 10:50 Senna/Docusate Sodium (Bre-Colace) 1 tab BID PO 09/14/17 09:00 09/21/17 07:41 Sennosides (Senokot) 17.2 mg Q12H PRN PO Moderate constipation 09/14/17 01:00 09/16/17 08:31 Alprazolam (Xanax) 0.5 mg Q6H PRN PO ANXIETY 09/14/17 02:00 09/20/17 00:47 Bupropion HCl (Wellbutrin) 300 mg DAILY PO 09/14/17 09:00 09/21/17 07:41 Cyclobenzaprine HCl (Flexeril) 10 mg Q8H PRN PO MUSCLE SPASM 09/14/17 03:45 09/14/17 05:04 Enalaprilat (Vasotec Inj) 1.25 mg Q6H PRN IV PUSH SBP>160, DBP>90 09/15/17 00:30 09/20/17 07:59 Morphine Sulfate (Morphine Inj) 5 mg Q2HR PRN IV PUSH severe breakthrough pain 09/16/17 13:00 09/21/17 00:11 Nicotine (Habitrol 21 Mg Patch.24 Hr) 1 patch DAILY T-DERMAL 09/17/17 09:00 09/21/17 07:41 Miscellaneous Information 1 DAILY T-DERMAL 09/17/17 09:00 09/21/17 07:41 Chlorhexidine Gluconate (Peridex 0.12% Liq) 15 ml BID@08,20 MT 09/19/17 08:00 09/19/17 08:56 Oxycodone/ Acetaminophen (Percocet 10-325 Mg) 1 tab Q6HR PRN PO pain 3 through 5 09/20/17 09:15 09/21/17 11:21 Oxycodone/ Acetaminophen (Percocet 10-325 Mg) 2 tab Q6HR PRN PO pain 6-10 09/20/17 09:15 09/21/17 04:01 Losartan Potassium (Cozaar) 25 mg DAILY PO 09/21/17 09:00 09/21/17 07:41 Nifedipine (Procardia) 10 mg Q8HR PO 09/20/17 14:00 09/21/17 14:33 Thiamine HCl (Vitamin B1) 100 mg DAILY PO 09/21/17 09:00 09/21/17 07:41 Melatonin (Melatonin) 5 mg HS PRN PO insomnia 09/20/17 21:00 09/20/17 21:43 Famotidine (Pepcid) 20 mg HS PO 09/20/17 21:00 09/20/17 21:44 Polyethylene Glycol (Miralax) 17 gm DAILY PO 09/21/17 09:00 09/21/17 07:41 Lactulose (Lactulose Liq) 30 ml DAILY PO 09/21/17 09:00 09/21/17 08:11 Objective Remarks GENERAL: Middle aged male, supine in bed resting with neck brace in place SKIN: Warm and dry. HEAD: Normocephalic. Neck brace in place EYES: No injection or drainage. NECK: Supple, trachea midline. CARDIOVASCULAR: Regular rate and rhythm. RESPIRATORY: Breath sounds equal bilaterally. No accessory muscle use. GASTROINTESTINAL: Abdomen soft, non-tender, nondistended. EXTREMITIES: No cyanosis. No edema NEUROLOGICAL: Moving all extremities. No obvious focal deficit. Assessment/Plan Problem List: (1) Papillary thyroid carcinoma ICD Codes: C73 - Malignant neoplasm of thyroid gland Plan: --invasive radiology consulted for biopsy of supraclavicular mass. -- Large right supraclavicular mass with cervical mass. --face sheet faxed Assessment 56y/o male with cervical mass and supraclavicular mass, admitted with neck pain. HPI (brought forward from initial consult for continuity of care)--started having pain around August and was progressively getting worse. He stated the pain was worse with movement. He was referred to see neurology, had an MRI of the cervical spine done initially without contrast which showed a C4 and C5 lesion. Subsequently he had an MRI with contrast which again showed a cervical lesion with a large right supraclavicular mass. He was then sent to see a neurosurgeon and subsequently sent to see an oncologist in [place], Dr. Marroquin. He stated he had a PET scan done which showed a destructive lesion in C4 and had a right supraclavicular mass but no other distant metastasis. He stated his pain is worse and his insurance does not cover the biopsy. He was told to come to the emergency room for further evaluation. Plan 1. Pathology pending from spinal surgery 2. Patient will need to follow-up with radiation oncology once discharged 3. Continue laxatives to help with constipation Attending Statement The exam, history, and the medical decision-making described in the above note were completed with the assistance of the mid-level provider. I reviewed and agree with the findings presented. I attest that I had a [id number] encounter with the patient on the same day, and personally performed and documented my assessment and findings in the medical record. Neck pain has improved. RUE still slightly weak. Path pending. Discussed with . Pt will need XRT when recover from surgery. Annette Cho Sep 21, 2017 15:45 Jj Ocasio MD Sep 21, 2017 16:10
--- NOTE | 2017-09-21 20:08 | HHI.HCPN ---
Reason for visit a. To assist with evaluation and management of symptoms including: Pain, anxiety b. To assist medical decision maker(s) with: better understanding of current medical conditions; weighing benefits/burdens of medical treatment options; making medical treatment decisions. Subjective/Interval History Patient seen and examined in his room. Patient is awake, alert and oriented to self, place and situation. Patient denies pain, complaining of constipation and nausea.. Bedside RN recently administered Zofran. Patient is on lactulose , MiraLAX, Bre-Colace, and his milk of magnesia, Dulcolax suppository as needed. Patient is on a regular diet . Patient underwent cervical corpectomy on 09/18/17. Critical care was consulted for ventilator management. Patient remained intubated after surgery and was extubated on 09/19/17 with no complications. Patient has been out of bed and ambulated in the hallway. Pathology from spinal surgery still pending. Radiation oncology following. . Family/friend interactions No family at bedside . Advance Directives Living Will: Never completed Health Care Surrogate: Copy in medical record Durable Power of Vat Packer: Never completed Advance Directive Specifics Date completed: 09/17/2017 . Health Care Surrogate(s): [facility]-son Masoud Davisazzo [phone] Alternate [facility]-brother David Fredy [phone] . Objective Vital Signs Date Time Temp Pulse Resp B/P (MAP) Pulse Ox O2 Delivery O2 Flow Rate FiO2 09/21/17 18:00 109 09/21/17 16:00 107 09/21/17 16:00 98.4 104 18 157/102 (120) 97 09/21/17 14:00 106 09/21/17 12:21 16 09/21/17 12:00 98.9 104 22 163/102 (122) 98 09/21/17 12:00 102 09/21/17 10:00 104 09/21/17 09:31 99 21 09/21/17 08:00 106 09/21/17 08:00 98.0 98 16 156/97 (116) 95 09/21/17 06:00 84 09/21/17 05:01 12 09/21/17 04:00 86 09/21/17 04:00 97.9 86 15 145/90 (108) 96 2/19/18 02:00 98 09/21/17 00:16 14 09/21/17 00:00 98.4 90 13 122/71 (88) 95 09/21/17 00:00 90 09/20/17 22:44 16 09/20/17 22:00 102 09/20/17 20:16 97 21 09/20/17 20:00 98.4 92 15 149/93 (111) 98 09/20/17 20:00 92 Physical Exam CONSTITUTIONAL/GENERAL: This is an adequately nourished patient. Currently denying pain TUBES/LINES/DRAINS:PIV SKIN: No jaundice, rashes, or lesions. No wounds seen anteriorly. Skin temperature appropriate. Anterior neck surgical incision covered with a dressing HEAD: Atraumatic. Normocephalic. EYES: Pupils equal and round and reactive. Extraocular motions intact. No scleral icterus. No injection or drainage. Fundi not examined. ENT: Hearing grossly normal. Nose without bleeding or purulent drainage. Moist oral mucosa. Patient is a [place] J collar NECK: Trachea midline. Supple, nontender. CARDIOVASCULAR: Regular rate and rhythm without murmurs, gallops, or rubs. No JVD. Peripheral pulses symmetric. RESPIRATORY/CHEST: Symmetric, unlabored respirations. Clear to auscultation. Breath sounds equal bilaterally. No wheezes, rales, or rhonchi. GASTROINTESTINAL: Abdomen soft, non-tender, nondistended. No guarding. Bowel sounds present. GENITOURINARY: Without palpable bladder distension. Mcgee catheter in place. MUSCULOSKELETAL: Extremities without clubbing, cyanosis, or edema. No joint tenderness or effusion noted. Decreased ROM to RUE NEUROLOGICAL: Alert,oriented to self, place and situation. Motor and sensory grossly within normal limits. Follows commands. Cognitively sharp. Moves all extremities. PSYCHIATRIC: No obvious anxiety/depression. no apparent hallucinations or other psychotic thought process. Diagnostic Tests Laboratory Laboratory Tests Test 09/19/17 00:12 09/19/17 00:35 09/19/17 03:05 09/19/17 03:50 White Blood Count 13.5 TH/MM3 (4.0-11.0) 10.8 TH/MM3 (4.0-11.0) Red Blood Count 3.60 MIL/MM3 (4.50-5.90) 3.67 MIL/MM3 (4.50-5.90) Hemoglobin 11.0 GM/DL (13.0-17.0) 11.3 GM/DL (13.0-17.0) Hematocrit 32.1 % (39.0-51.0) 32.8 % (39.0-51.0) Mean Corpuscular Volume 89.0 FL (80.0-100.0) 89.3 FL (80.0-100.0) Mean Corpuscular Hemoglobin 30.6 PG (27.0-34.0) 30.7 PG (27.0-34.0) Mean Corpuscular Hemoglobin Concent 34.4 % (32.0-36.0) 34.4 % (32.0-36.0) Red Cell Distribution Width 14.1 % (11.6-17.2) 14.0 % (11.6-17.2) Platelet Count 303 TH/MM3 (150-450) 323 TH/MM3 (150-450) Mean Platelet Volume 8.2 FL (7.0-11.0) 7.9 FL (7.0-11.0) Neutrophils (%) (Auto) 94.0 % (16.0-70.0) 94.3 % (16.0-70.0) Lymphocytes (%) (Auto) 2.8 % (9.0-44.0) 3.4 % (9.0-44.0) Monocytes (%) (Auto) 1.7 % (0.0-8.0) 2.0 % (0.0-8.0) Eosinophils (%) (Auto) 0.2 % (0.0-4.0) 0.0 % (0.0-4.0) Basophils (%) (Auto) 1.3 % (0.0-2.0) 0.3 % (0.0-2.0) Neutrophils # (Auto) 12.7 TH/MM3 (1.8-7.7) 10.2 TH/MM3 (1.8-7.7) Lymphocytes # (Auto) 0.4 TH/MM3 (1.0-4.8) 0.4 TH/MM3 (1.0-4.8) Monocytes # (Auto) 0.2 TH/MM3 (0-0.9) 0.2 TH/MM3 (0-0.9) Eosinophils # (Auto) 0.0 TH/MM3 (0-0.4) 0.0 TH/MM3 (0-0.4) Basophils # (Auto) 0.2 TH/MM3 (0-0.2) 0.0 TH/MM3 (0-0.2) CBC Comment AUTO DIFF DIFF FINAL Differential Comment AUTO DIFF CONFIRMED Blood Urea Nitrogen 8 MG/DL (7-18) 8 MG/DL (7-18) Creatinine 0.54 MG/DL (0.60-1.30) 0.62 MG/DL (0.60-1.30) Random Glucose 137 MG/DL (74-106) 194 MG/DL (74-106) Calcium Level 8.1 MG/DL (8.5-10.1) 8.4 MG/DL (8.5-10.1) Sodium Level 140 MEQ/L (136-145) 138 MEQ/L (136-145) Potassium Level 4.2 MEQ/L (3.5-5.1) 4.1 MEQ/L (3.5-5.1) Chloride Level 107 MEQ/L (98-107) 104 MEQ/L (98-107) Carbon Dioxide Level 27.9 MEQ/L (21.0-32.0) 27.7 MEQ/L (21.0-32.0) Anion Gap 5 MEQ/L (5-15) 6 MEQ/L (5-15) Estimat Glomerular Filtration Rate 157 ML/MIN (>89) 134 ML/MIN (>89) Nasal Screen MRSA (PCR) MRSA NOT DETECTED (NOT Blood Gas Puncture Site ART LINE Blood Gas Patient Temperature 98.6 Blood Gas HCO3 25 mmol/L (22-26) Blood Gas Base Excess 0.6 mmol/L (-2-2) Blood Gas Oxygen Saturation 95 % (90-100) Arterial Blood pH 7.38 (7.380-7.420) Arterial Blood Partial Pressure CO2 44 mmHg (38-42) Arterial Blood Partial Pressure O2 88 mmHg (61-120) Arterial Blood Oxygen Content 17.0 Vol % (12.0-20.0) Arterial Blood Carboxyhemoglobin 1.1 % (0-4) Arterial Blood Methemoglobin 1.0 % (0-2) Blood Gas Hemoglobin 12.7 G/DL (12.0-16.0) Oxygen Delivery Device VENTILATOR Blood Gas Ventilator Setting SEE COMMENT Blood Gas Inspired Oxygen 40 % Prothrombin Time 11.9 SEC (9.8-11.6) Prothromb Time International Ratio 1.2 RATIO Activated Partial Thromboplast Time 28.7 SEC (24.3-30.1) Albumin 2.5 GM/DL (3.4-5.0) Phosphorus Level 2.3 MG/DL (2.5-4.9) Magnesium Level 2.3 MG/DL (1.5-2.5) Test 09/20/17 05:16 09/21/17 05:34 White Blood Count 13.6 TH/MM3 (4.0-11.0) 9.5 TH/MM3 (4.0-11.0) Red Blood Count 3.55 MIL/MM3 (4.50-5.90) 3.76 MIL/MM3 (4.50-5.90) Hemoglobin 10.6 GM/DL (13.0-17.0) 11.3 GM/DL (13.0-17.0) Hematocrit 31.9 % (39.0-51.0) 33.4 % (39.0-51.0) Mean Corpuscular Volume 90.0 FL (80.0-100.0) 89.1 FL (80.0-100.0) Mean Corpuscular Hemoglobin 29.9 PG (27.0-34.0) 30.1 PG (27.0-34.0) Mean Corpuscular Hemoglobin Concent 33.2 % (32.0-36.0) 33.8 % (32.0-36.0) Red Cell Distribution Width 14.1 % (11.6-17.2) 14.1 % (11.6-17.2) Platelet Count 303 TH/MM3 (150-450) 357 TH/MM3 (150-450) Mean Platelet Volume 8.4 FL (7.0-11.0) 7.7 FL (7.0-11.0) Blood Urea Nitrogen 8 MG/DL (7-18) 8 MG/DL (7-18) Creatinine 0.51 MG/DL (0.60-1.30) 0.48 MG/DL (0.60-1.30) Random Glucose 121 MG/DL (74-106) 89 MG/DL (74-106) Calcium Level 8.4 MG/DL (8.5-10.1) 8.4 MG/DL (8.5-10.1) Sodium Level 141 MEQ/L (136-145) 140 MEQ/L (136-145) Potassium Level 3.8 MEQ/L (3.5-5.1) 3.6 MEQ/L (3.5-5.1) Chloride Level 108 MEQ/L (98-107) 104 MEQ/L (98-107) Carbon Dioxide Level 25.8 MEQ/L (21.0-32.0) 29.2 MEQ/L (21.0-32.0) Anion Gap 7 MEQ/L (5-15) 7 MEQ/L (5-15) Estimat Glomerular Filtration Rate 168 ML/MIN (>89) 180 ML/MIN (>89) Result Diagram: 09/21/17 0534 09/21/17 0534 Imaging Last 72 hours Impressions Chest X-Ray 09/19/17 0000 Signed Impressions: Service Date/Time: Tuesday, September 19, 2017 02:51 - CONCLUSION: Slight right lung base atelectasis. Winsome Fernandes MD Abdomen X-Ray 09/19/17 0000 Signed Impressions: Service Date/Time: Tuesday, September 19, 2017 04:03 - CONCLUSION: NG tube is present with tip barely in the stomach. Winsome Fernandes MD Procedures [id number] right supraclavicular mass biopsy 09/18/2017-C5 corpectomy, resection of metastatic for labral body and paraspinous neoplasm, C4 through C6 anterior cervical instrumentation and subtotal resection of right NECK-shaft clavicular metastatic neoplasm . Assessment and Plan Disease Oriented Problem List: (1) Supraclavicular mass (2) Cervical spinal mass (3) Leukocytosis (4) Tobacco abuse Symptom Scale: (1) Intractable pain Comment: Complaining of progressive neck pain which radiates to the right upper extremity. Patient has right C4 vertebral body and right supraclavicular tumor. . (2) Anxiety 0-10 Scale: Unable to quantify Comment: Hx of anxiety. Most likely exacerbated with recent cancer diagnosis. . 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 Patient has been twice, first and he is from his second . Patient had 2 sons, one 3 months ago from a motor cycle accident and one lives in [place]. Patient loves riding his motorcycle. He lives alone. Spiritual: No yarsani affiliation Legal:Patient signed [facility] form 09/17 Ethical issues impacting care: None identified at this time . Important Contacts [facility]-son Masoud Daniel [phone] Alternate [facility]-brother David Daniel [phone] Girlfriend- Yenifer Pimentel- [phone] . Prognosis Mr. Daniel is a 56-year-old male with a past medical history of hypertension, depression, tobacco abuse and anxiety. Patient presented to the ER on 09/13/17 complaining of progressive severe neck pain that radiated down to use right upper extremity and also numbness and mild weakness to the same extremity. Chest CT on 09/14/17 revealed a 4 cm soft tissue mass right subclavicular region with extension or metastatic disease into the body of C7. CT-guided needle biopsy of right neck lymph node mass on 09/15/17 and results show papillary thyroid carcinoma. Clinical course complicated with intractable pain. Patient is scheduled for surgery and radiation therapy after recovery. Patient is at risk for further complications. Prognosis at this time is guarded. . Code Status: Full Code Plan PLAN: Legal decision maker: Patient is currently able to make his own medical decisions. In the event that he is incapacitated patient has designated his son Masoud Daniel to be his health care surrogate and his brother David Daniel to be his alternate health care surrogate. Goals: Aggressive CODE STATUS: Full code SYMPTOMS: * Pain: Patient came in complaining of progressive neck pain which radiates to the right upper extremity. Patient has right C4 vertebral body and right supraclavicular tumor. Currently on 50 mcg fentanyl patch Q 72 hours, morphine sulfate 5 mg Q 2 HRS PRN , oxycodone 10 mg Q 4 hrs prn, cyclobenzaprine 10 mg q 8 hrs prn muscle spasms. Patient underwent C5 corpectomy and C5 vertebral body reconstruction with C4-6 anterior cervical instrumentation. Patient currently denying pain. Recommending monitoring bowel movement status. * Anxiety: Multifactorial. History of anxiety, most likely exacerbated with recent cancer diagnosis. Currently on Xanax 0.5 mg q 6 hrs prn. Last dose xanax 0.5mg administered 09/16/17. No recommendations. Palliative care will continue to follow the patient during hospital course as condition evolves, to assist patient/decision-maker with understanding of their medical conditions, weighing benefits/burdens of treatment options, for clarification of goals of treatment. Additionally will assist with any symptoms of palliative concern. Attestation To help prompt me to consider important information that might be impacting today's encounter and assessment, information from prior notes written by myself or my colleagues may have been "brought forward" into today's note. My signature on this note, however, is an attestation that I personally performed the exam, history, and/or decision-making noted today, and, unless otherwise indicated, the interactions with patient, family, and staff as well as the review of records all occurred today. I also attest that the listed assessment and stated plan reflect my best clinical judgment today based on the combination of historical information, prior notes, and today's exam/ interactions. When time spent is documented, it refers only to time spent today by the signer, or if indicated, combined time spent today by collaborating physician/nurse practitioner. Cristo Bunn Sep 21, 2017 20:08
[2017-09-21] MEDS: ENALAPRILAT 1.25 MG/ML VIAL IV PUSH PRN (20:25)
[2017-09-21] MEDS: SENNOSIDES 8.6 MG TAB PO PRN (20:25)
[2017-09-21] MEDS: FAMOTIDINE 20 MG TAB PO SCH (20:25)
[2017-09-21] MEDS: MELATONIN 5 MG TAB PO PRN (23:58)
[2017-09-22] VITALS (9 sets, daily range): BP systolic 115–164; BP diastolic 73–105; PULSE 84–120; RESP 15–24; TEMP 97.7–98.8; O2SAT 94–97
[2017-09-22] MEDS: oxyCODONE/ACETAMINOPHEN 10 MG/325 MG TAB PO PRN ×2 (00:43→23:45)
[2017-09-22] MEDS: NIFEdipine 10 MG CAP PO SCH ×3 (05:11→22:33)
[2017-09-22 05:15] LABS: HEMOGLOBIN 11.8 GM/DL (13.0-17.0); MEAN CELL VOLUME 88.3 FL (80.0-100.0); MEAN CORPUSCULAR HEMOGLOBIN 29.8 PG (27.0-34.0); MEAN CORPUSCULAR HGB CONC 33.8 % (32.0-36.0); MEAN PLATELET VOLUME 7.2 FL (7.0-11.0); PLATELET COUNT 395 TH/MM3 (150-450); RED BLOOD COUNT 3.96 MIL/MM3 (4.50-5.90); RED CELL DISTRIBUTION WIDTH 14.2 % (11.6-17.2); WHITE BLOOD COUNT 8.5 TH/MM3 (4.0-11.0)
[2017-09-22 05:28] LABS: CALCIUM 9.3 MG/DL (8.5-10.1); CREATININE 0.54 MG/DL (0.60-1.30)
[2017-09-22] MEDS: INSULIN ASPART SUPPLEMENTAL SCALE SQ SCH ×4 (08:00→21:00)
[2017-09-22] MEDS: CHLORHEXIDINE 0.12% (ORAL KIT) 15 ML CUP MT SCH ×2 (08:00→20:00)
[2017-09-22] MEDS: LACTULOSE SYRUP 20 GM/30 ML CUP PO SCH ×4 (08:14→21:00)
[2017-09-22] MEDS: POLYETHYLENE GLYCOL 17 GM PKG PO SCH (08:14)
[2017-09-22] MEDS: DOCUSATE SODIUM 50 MG/SENNA 8.6 MG TAB PO SCH ×2 (08:14→21:00)
[2017-09-22] MEDS: buPROPion HCL 100 MG TAB PO SCH (08:15)
[2017-09-22] MEDS: SODIUM CHLORIDE 0.9% FLUSH 10 ML FLUSH IV FLUSH SCH ×2 (08:15→22:33)
[2017-09-22] MEDS: LOSARTAN 25 MG TAB PO SCH (08:15)
[2017-09-22] MEDS: THIAMINE HCL 100 MG TAB PO SCH (08:15)
[2017-09-22] MEDS: REMOVE OLD PATCH T-DERMAL SCH (08:36)
[2017-09-22] MEDS: NICOTINE 21 MG/24 HR PATCH T-DERMAL SCH (08:36)
--- NOTE | 2017-09-22 09:35 | HHI.NSPN ---
(Rodriguez Maya ANGELA) History Chief Complaint: Constipation and rectal pain. (Rodriguez Maya) Interval History is a 36-year-old gentleman who complains of onset of right sided neck pain approximately 6 weeks ago. The pain gradually progressed and within another 3 weeks he developed progressive numbness and weakness and finally pain in the right shoulder and proximal arm. He states that for the past 2 or 3 weeks he has not been able to lift his right arm up. He was seen by a neurologist and an MRI of the cervical spine without contrast was ordered followed by an MRI with contrast which was done in [place]. He was seen by neurosurgery in [place] and referred to oncologist, , In [place]. A PET scan was performed which revealed the cervical spine and supraclavicular lesion without evidence of other metastatic disease. 09/16/17: Minimal response to fentanyl patch. 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 He is laying in the stretcher. He states that the neck pain and right shoulder pain persists and now has some pain going into the arm itself. He denied any numbness to the extremity. He endorsed a cough but denied any chest pain, palpitations, irregular heartbeat, shortness of breath, abdominal pain or nausea. Sensation and motor strength appear normal. He does say he is drowsy and slow moving due to the pain medication. He is scheduled for surgery later today. 09/18: The patient went for a C5 corpectomy with resection of a metastatic vertebral body and paraspinous neoplasm, followed by a C5 vertebral body reconstruction with carbon fiber cage and C4-6 anterior cervical instrumentation. He also had a subtotal resection of a right anterior neck- shaft clavicular metastatic neoplasm. Post-operatively he remained intubated and was transferred to the ISC unit for further care and monitoring. 09/19: Patient is status post cervical corpectomy due to metastatic lesion. Impression is that of thyroid carcinoma. Patient remained intubated postop. Nurses report he has been stable. At times agitated 09/20: Patient is status post cervical corpectomy due to metastatic lesion. Impression is that of thyroid carcinoma. Extubated yesterday. Patient reports he is doing well. No significant complaints 09/21: The patient is awake and alert sitting up in a chair when seen this morning. He says he is doing good. He does have some muscular pain to the right side of the neck and a sore throat. He denies any headache or dizziness or any pain, numbness, tingling or weakness to the extremities. He is in a Sycuan J cervical collar. He is tolerating a regular diet. 09/22: The patient was in the bathroom initially when this practitioner entered the room. He was subsequently seen as he walked out of the bathroom. His gait was steady. He denied any headache or dizziness. He did endorses some pain and weakness to the proximal right arm but denied any other extremity pain, numbness ,tingling or weakness. His major complaint was constipation and rectal pain. His neuro exam was unchanged. (Rodriguez Maya) Exam Results 09/20/17 09/20/17 09/21/17 09/21/17 09/22/17 09/22/17 06:00 18:00 06:00 18:00 06:00 18:00 Intake Total 720 ml 1200 ml 720 ml 800 ml 480 ml Output Total 1410 ml 3700 ml 2400 ml Balance -690 ml -2500 ml -1680 ml 800 ml 480 ml Intake Oral 720 ml 1200 ml 720 ml 800 ml 480 ml Output Urine Total 1400 ml 3700 ml 2400 ml Drainage Total 10 ml # Voids 5 4 # Bowel Movements 0 0 0 0 0 Vital Signs Date Time Temp Pulse Resp B/P (MAP) Pulse Ox O2 Delivery O2 Flow Rate FiO2 09/22/17 08:37 94 21 09/22/17 06:00 88 09/22/17 04:00 84 09/22/17 04:00 97.7 84 15 133/85 (101) 94 09/22/17 02:00 88 09/22/17 01:43 14 09/22/17 00:00 98.8 100 20 164/105 (124) 97 09/22/17 00:00 100 09/21/17 22:55 95 21 09/21/17 22:00 108 09/21/17 20:00 106 2/19/18 20:00 98.4 106 18 179/104 (129) 98 18 19:49 26 18 18:00 109 18 16:00 107 18 16:00 98.4 104 18 157/102 (120) 97 18 14:00 106 09/21/17 12:00 98.9 104 22 163/102 (122) 98 09/21/17 12:00 102 18 10:00 104 09/21/17 09:31 99 21 18 08:00 106 09/21/17 08:00 98.0 98 16 156/97 (116) 95 09/21/17 06:00 84 09/21/17 04:00 86 09/21/17 04:00 97.9 86 15 145/90 (108) 96 09/21/17 02:00 98 09/21/17 00:16 14 09/21/17 00:00 98.4 90 13 122/71 (88) 95 09/21/17 00:00 90 18 22:44 16 18 22:00 102 18 20:16 97 21 18 20:00 98.4 92 15 149/93 (111) 98 18 20:00 92 18 18:00 105 18 16:00 94 18 16:00 98.7 90 19 131/67 (88) 97 09/20/18 14:00 99 18 12:00 98.2 100 17 142/95 (111) 97 18 12:00 102 18 10:00 108 18 09:24 99 21 18/18 08:00 92 1818 08:00 98.2 92 17 166/98 (120) 98 1818 06:00 94 18 04:00 100 18/18 04:00 98.0 100 14 138/83 (101) 98 18/18 02:00 102 18/18 00:00 98.4 108 15 147/90 (109) 98 18 22:00 112 18 20:01 98 21 09/19/17 20:00 98.3 121 18 138/86 (103) 98 09/19/17 20:00 121 09/19/17 18:00 121 09/19/17 17:37 25 09/19/17 17:37 25 09/19/17 16:00 109 09/19/17 16:00 98.5 109 24 133/81 (98) 96 09/19/17 14:00 94 09/19/17 12:57 99 Nasal Cannula 4 09/19/17 12:57 Nasal Cannula 40 09/19/17 12:00 94 09/19/17 12:00 40 09/19/17 12:00 98.6 94 20 128/85 (99) 99 09/19/17 10:00 92 09/19/17 09:31 99 40 (Rodriguez Maya) Physical Examination GENERAL: Awake & alert ambulating in room. Readily interacts. Affect essentially normal. No apparent distress. HEENT: Normocephalic, atraumatic. NECK: In Sycuan J cervical collar. Midline cervical spine NTTP. Minimally TTP to right lower anterolateral & posterolateral neck musculature. No JVD. Trachea midline. The right anterior surgical incision has a dry & intact dressing w/o any evident shadowing. MUSCULOSKELETAL: PEÑA spontaneously w/o difficulty. Extremities NTTP. Mild decrease in ROM to right shoulder. No evident clubbing or deformity. NEUROLOGICAL: AAOx3. Speech clear & appropriate. Follows simple commands w/o difficulty. Sensation is intact to light touch to all extremities. Motor strength is 4+/5 to the right deltoid o/w it is 5/5 to all major flexion & extension muscle groups of the extremities to include wrist flexors & extensors and hand intrinsics & extrinsics. (Rodriguez Maya) Lab, Micro, Other Results Laboratory Tests Test 09/20/17 05:16 09/21/17 05:34 09/22/17 04:14 09/22/17 04:41 White Blood Count 13.6 TH/MM3 9.5 TH/MM3 8.5 TH/MM3 Red Blood Count 3.55 MIL/MM3 3.76 MIL/MM3 3.96 MIL/MM3 Hemoglobin 10.6 GM/DL 11.3 GM/DL 11.8 GM/DL Hematocrit 31.9 % 33.4 % 35.0 % Mean Corpuscular Volume 90.0 FL 89.1 FL 88.3 FL Mean Corpuscular Hemoglobin 29.9 PG 30.1 PG 29.8 PG Mean Corpuscular Hemoglobin Concent 33.2 % 33.8 % 33.8 % Red Cell Distribution Width 14.1 % 14.1 % 14.2 % Platelet Count 303 TH/MM3 357 TH/MM3 395 TH/MM3 Mean Platelet Volume 8.4 FL 7.7 FL 7.2 FL Blood Urea Nitrogen 8 MG/DL 8 MG/DL 12 MG/DL Creatinine 0.51 MG/DL 0.48 MG/DL 0.54 MG/DL Random Glucose 121 MG/DL 89 MG/DL 93 MG/DL Calcium Level 8.4 MG/DL 8.4 MG/DL 9.3 MG/DL Sodium Level 141 MEQ/L 140 MEQ/L 139 MEQ/L Potassium Level 3.8 MEQ/L 3.6 MEQ/L 3.8 MEQ/L Chloride Level 108 MEQ/L 104 MEQ/L 103 MEQ/L Carbon Dioxide Level 25.8 MEQ/L 29.2 MEQ/L 29.0 MEQ/L Anion Gap 7 MEQ/L 7 MEQ/L 7 MEQ/L Estimat Glomerular Filtration Rate 168 ML/MIN 180 ML/MIN 157 ML/MIN (Rodriguez Maya) Medical Decision Making Impression and Plan Impression: 1. Right C5 vertebral lesion with nearly 50% vertebral body destruction, significant impingement on the right C4 5 and C5 6 neural foramen. Pathology consistent with papillary thyroid carcinoma per report. 2. Right C5-6 radiculopathy with sensory motor deficit and persistent severe pain Patient continues to do well post-operatively. His pain is controlled. Neuro exam essentially unchanged. Intermittent hypertension. Reviewed labs for today. Interval improvement in haemoglobin level. Physical Therapy felt the patient was able to be safely discharged home w/o any skilled needs or equipment. POD #4 () s/p: 1. C5 corpectomy, resection of metastatic vertebral body and paraspinous neoplasm 2. C5 vertebral body reconstruction with carbon fiber cage, demineralized bone matrix 3. C4-6 anterior cervical instrumentation 4. Subtotal resection right anterior neck-shaft clavicular metastatic neoplasm Postoperative Diagnosis: (1) Cervical spinal mass (2) Supraclavicular mass (3) Papillary thyroid carcinoma 1. Metastatic carcinoma to cervical spine-C5 vertebral body with compression exiting right C5 and C6 nerve roots 2. Metastatic carcinoma to right anterolateral neck-shaft clavicular region Plan: Discussed plan of care with patient. Primary management per Circulation Librarian/Hospitalist. Sycuan J cervical collar at all times except for personal hygiene. Mobilise patient w/assistance as needed. Physical Therapy. From Neurosurgery's perspective the patient is able to be discharged home with outpatient follow up around for a wound check. (Rodriguez Maya) Attending Statement The exam, history, and the medical decision-making described in the above note were completed with the assistance of the mid-level provider. I reviewed and agree with the findings presented. I attest that I had a [id number] encounter with the patient on the same day, and personally performed and documented my assessment and findings in the medical record. (Juan Carlos Mishra MD) Rodriguez Maya Sep 22, 2017 09:35 Juan Carlos Mishra MD Sep 25, 2017 15:44
[2017-09-22] MEDS ORDERED: BISACODYL 10 MG SUPP PR PRN (10:45)
--- NOTE | 2017-09-22 11:00 | PD.ONC.PN ---
Subjective Subjective Remarks Afebrile overnight. patient resting in room. complaining of severe constipation. states he has not had a bm in several days. otherwise without complaint. Objective Data Date Time Temp Pulse Resp B/P (MAP) Pulse Ox O2 Delivery O2 Flow Rate FiO2 09/22/17 08:37 94 21 09/22/17 06:00 88 09/22/17 04:00 84 09/22/17 04:00 97.7 84 15 133/85 (101) 94 09/22/17 02:00 88 09/22/17 01:43 14 09/22/17 00:00 98.8 100 20 164/105 (124) 97 09/22/17 00:00 100 09/21/17 22:55 95 21 09/21/17 22:00 108 09/21/17 20:00 106 09/21/17 20:00 98.4 106 18 179/104 (129) 98 09/21/17 19:49 26 09/21/17 18:00 109 09/21/17 16:00 107 09/21/17 16:00 98.4 104 18 157/102 (120) 97 09/21/17 14:00 106 09/21/17 12:00 98.9 104 22 163/102 (122) 98 09/21/17 12:00 102 09/22/17 09/22/17 09/22/17 07:00 15:00 23:00 Intake Total 480 ml Balance 480 ml Result Diagram: 09/22/17 0414 09/22/17 0441 Laboratory Results Laboratory Tests Test 09/22/17 04:14 09/22/17 04:41 White Blood Count 8.5 TH/MM3 Red Blood Count 3.96 MIL/MM3 Hemoglobin 11.8 GM/DL Hematocrit 35.0 % Mean Corpuscular Volume 88.3 FL Mean Corpuscular Hemoglobin 29.8 PG Mean Corpuscular Hemoglobin Concent 33.8 % Red Cell Distribution Width 14.2 % Platelet Count 395 TH/MM3 Mean Platelet Volume 7.2 FL Blood Urea Nitrogen 12 MG/DL Creatinine 0.54 MG/DL Random Glucose 93 MG/DL Calcium Level 9.3 MG/DL Sodium Level 139 MEQ/L Potassium Level 3.8 MEQ/L Chloride Level 103 MEQ/L Carbon Dioxide Level 29.0 MEQ/L Anion Gap 7 MEQ/L Estimat Glomerular Filtration Rate 157 ML/MIN Administered Medications Medications (Trade) Dose Ordered Sig/Marcus Route PRN Reason Start Time Stop Time Status Last Admin Dose Admin Sodium Chloride (NS Flush) 2 ml UNSCH PRN IV FLUSH FLUSH AFTER USING IV ACCESS 09/14/17 01:00 09/21/17 10:50 Sodium Chloride (NS Flush) 2 ml BID IV FLUSH 09/14/17 09:00 09/22/17 08:15 Ondansetron HCl (Zofran Inj) 4 mg Q6H PRN IVP NAUSEA OR VOMITING 09/14/17 01:00 09/21/17 10:50 Alprazolam (Xanax) 0.5 mg Q6H PRN PO ANXIETY 09/14/17 02:00 09/20/17 00:47 Bupropion HCl (Wellbutrin) 300 mg DAILY PO 09/14/17 09:00 09/22/17 08:15 Cyclobenzaprine HCl (Flexeril) 10 mg Q8H PRN PO MUSCLE SPASM 09/14/17 03:45 09/14/17 05:04 Enalaprilat (Vasotec Inj) 1.25 mg Q6H PRN IV PUSH SBP>160, DBP>90 09/15/17 00:30 09/21/17 20:25 Morphine Sulfate (Morphine Inj) 5 mg Q2HR PRN IV PUSH severe breakthrough pain 09/16/17 13:00 09/21/17 00:11 Nicotine (Habitrol 21 Mg Patch.24 Hr) 1 patch DAILY T-DERMAL 09/17/17 09:00 09/22/17 08:36 Miscellaneous Information 1 DAILY T-DERMAL 09/17/17 09:00 09/22/17 08:36 Chlorhexidine Gluconate (Peridex 0.12% Liq) 15 ml BID@08,20 MT 09/19/17 08:00 09/19/17 08:56 Oxycodone/ Acetaminophen (Percocet 10-325 Mg) 1 tab Q6HR PRN PO pain 3 through 5 09/20/17 09:15 09/21/17 18:49 Oxycodone/ Acetaminophen (Percocet 10-325 Mg) 2 tab Q6HR PRN PO pain 6-10 09/20/17 09:15 09/22/17 00:43 Losartan Potassium (Cozaar) 25 mg DAILY PO 09/21/17 09:00 09/22/17 08:15 Nifedipine (Procardia) 10 mg Q8HR PO 09/20/17 14:00 09/22/17 05:11 Thiamine HCl (Vitamin B1) 100 mg DAILY PO 09/21/17 09:00 09/22/17 08:15 Melatonin (Melatonin) 5 mg HS PRN PO insomnia 09/20/17 21:00 09/21/17 23:58 Famotidine (Pepcid) 20 mg HS PO 09/20/17 21:00 09/21/17 20:25 Polyethylene Glycol (Miralax) 17 gm DAILY PO 09/21/17 09:00 09/22/17 08:14 Objective Remarks GENERAL: Middle aged male, sitting up in bed in [facility]. SKIN: Warm and dry. HEAD: Normocephalic. EYES: No injection or drainage. NECK: Supple, trachea midline. bandage along neck is c/d/i LYMPHATIC: No adenopathy. CARDIOVASCULAR: Regular rate and rhythm without murmurs. RESPIRATORY: Breath sounds equal bilaterally. No accessory muscle use. GASTROINTESTINAL: Abdomen soft, non-tender, nondistended. EXTREMITIES: No cyanosis NEUROLOGICAL: awake and alert, normal speech. moving all extremities. Assessment/Plan Problem List: (1) Papillary thyroid carcinoma ICD Codes: C73 - Malignant neoplasm of thyroid gland Plan: --s/p corpectomy on 09/18 --large right supraclavicular mass with cervical mass. path=papillary thyroid carcinoma. --face sheet faxed to new patient referrals. Assessment 56y/o male with cervical mass and supraclavicular mass, admitted with neck pain. HPI (brought forward from initial consult for continuity of care)--started having pain around August and was progressively getting worse. He stated the pain was worse with movement. He was referred to see neurology, had an MRI of the cervical spine done initially without contrast which showed a C4 and C5 lesion. Subsequently he had an MRI with contrast which again showed a cervical lesion with a large right supraclavicular mass. He was then sent to see a neurosurgeon and subsequently sent to see an oncologist in [place], Dr. Marroquin. He stated he had a PET scan done which showed a destructive lesion in C4 and had a right supraclavicular mass but no other distant metastasis. He stated his pain is worse and his insurance does not cover the biopsy. He was told to come to the emergency room for further evaluation. Plan 1. adjust medications for constipation. add scheduled lactulose QID until bowel movement. 2. once cleared by NS follow up in clinic upon discharge. Attending Statement The exam, history, and the medical decision-making described in the above note were completed with the assistance of the mid-level provider. I reviewed and agree with the findings presented. I attest that I had a [id number] encounter with the patient on the same day, and personally performed and documented my assessment and findings in the medical record. Neck pain has improved. RUE slight weakness stable. Discussed case at the tumor board. Plan to give him XRT after he recovers from surgery follow by possible I131. He will f/u with for the XRT. Josy Saldivar Sep 22, 2017 11:00 Jj Ocasio MD Sep 22, 2017 13:36
--- NOTE | 2017-09-22 14:51 | HHI.CCPN ---
Subjective Remarks/Hospital Course 56-year-old male with past medical history of hypertension, depression, anxiety who was originally admitted to [facility] emergency department after presenting with severe neck pain radiating down his arm with right upper extremity numbness. He had a known right supraclavicular mass that had previously been imaged in August with MRI reportedly showing C4-C5 mass and right supraclavicular mass with distructive lesion of C5. He had been undergoing outpatient evaluations but presented to [place] due to intractable pain. CT neck was performed 09/15/17 and demonstrated 4 cm right supraclavicular mass with lytic vertebral body mass. He underwent biopsy 09/15 that showed papillary thyroid carcinoma. Today he has undergone C5 Corpectomy, C5 vertebral body reconstruction and subtotal resection of right anterior neck neoplasm by Dr. Marinelli. He will remain intubated postoperatively for maintenance of upper airway. Critical care medicine has been consulted for ventilator and medical management. 09/20: Extubated yesterday 09/19 admission without competition. Currently on room air. Subjective 09/21: Afebrile. Pain control appears to be his main issues is present time. No bowel movement since surgery. On room air. 09/22: Patient did well over the night. This AM he is complaining of some abdominal discomfort and constipation. Suppository given. Otherwise he is doing well. Afebrile. Objective Vital Signs Date Time Temp Pulse Resp B/P (MAP) Pulse Ox O2 Delivery O2 Flow Rate FiO2 09/22/17 08:37 94 21 09/22/17 06:00 88 09/22/17 04:00 97.7 15 133/85 (101) 09/19/17 12:57 Nasal Cannula 4 Intake and Output 09/22/17 09/22/17 09/23/17 08:00 16:00 00:00 Intake Total 480 ml Balance 480 ml Result Diagram: 09/22/17 0414 09/22/17 0441 Imaging Last Impressions Chest X-Ray 09/19/17 0000 Signed Impressions: Service Date/Time: Tuesday, September 19, 2017 02:51 - CONCLUSION: Slight right lung base atelectasis. Winsome Fernandes MD Abdomen X-Ray 09/19/17 0000 Signed Impressions: Service Date/Time: Tuesday, September 19, 2017 04:03 - CONCLUSION: NG tube is present with tip barely in the stomach. KGet Fernandes MD Cervical Spine X-Ray 09/18/17 0000 Signed Impressions: Service Date/Time: Monday, September 18, 2017 19:23 - CONCLUSION: 1. Postoperative fusion. Magno Cosby MD Neck CT 09/16/17 0000 Signed Impressions: Service Date/Time: Saturday, September 16, 2017 13:04 - CONCLUSION: Adenopathy on the right with the confluence mass in the right subclavicular region. Meniscectomy disease to C7. MRI could be used to exclude cord involvement. Mass in the right neck has been biopsied under ultrasound. Bladimir Dick MD FACR Lymph Node Biopsy Ultrasound 09/15/17 0000 Signed Impressions: Service Date/Time: Friday, September 15, 2017 15:07 - CONCLUSION: 1. Uncomplicated ultrasound guided 18 gauge core biopsies of right supraclavicular mass. Semaj Augustin MD Chest CT 09/14/17 0000 Signed Impressions: Service Date/Time: Thursday, September 14, 2017 11:08 - CONCLUSION: 4 cm soft tissue mass right subclavicular region with extension or metastatic disease into the body of C7. The supraclavicular mass would be amenable to percutaneous biopsy under ultrasound. Bladimir Dick MD FACR Brain MRI 09/14/17 0000 Signed Impressions: Service Date/Time: Thursday, September 14, 2017 10:27 - CONCLUSION: 1. Small retention cyst in the inferior aspect of the right maxillary antra and a subcutaneous 2 cm sebaceous cyst in the soft tissues overlying the left side of the occiput. 2. Otherwise negative. Intracranial structures are all radiographically normal. Chaparro Valdez MD Objective Remarks General - middle age gentleman, in no distress HEENT - pupils equal, reactive, sclerae anicteric, neck supple, neck veins not distended, + collar CV - regular S1, S2, no murmurs Chest - clear b/l, good air entry, no wheezes Abdomen - soft, non-tender, non-distended, BS present, no hepatomegaly, no splenomegaly Skin - no rashes, no cyanosis Extremities - warm and well perfused, no edema, + peripheral pulses, no clubbing Neuro - AAO X 3, motor 5/5 over all extremities, sensation is intact, pupils are equal and reactive, EOMI, smile symmetric, tongue midline, shrugs shoulders A/P Assessment and Plan NEURO/PSYCH: Right supraclavicular mass with extension into C5 vertebral body Status post subtotal resection of right supraclavicular mass (to help alleviate compression of right carotid artery) C5 corpectomy with resection of metastatic vertebral body and paraspinous neoplasm. C5 vertebral body reconstruction. by Dr. Marinelli 09/18/17 Depression/anxiety Cervical collar in place Oxycodone/acetaminophen 10/325 one to 2 tabs by mouth every 6 hours as needed for pain. Morphine sulfate 5 mg IV every 2 hours as needed for breakthrough pain. Previously was on fentanyl 50 g patch but currently not wearing it.. We'll discontinue At home on morphine IR 15 mill grams every 6 hours as needed and oxycodone/ acetaminophen 10/21 tablet every 4 hours when necessary pain Continue bupropion 300 mg by mouth daily for depression Continue alprazolam 0.5 mill grams by mouth every 6 hours when necessary anxiety Melatonin 5 mill grams of mag when necessary insomnia RESP: Ongoing tobaccoism Nasal cannula to maintain saturations greater than equal to 92% Currently on room air Incentive spirometry while awake Nicotine patch 21 mg daily continue CV: Essential hypertension Resume losartan 25 mg daily. Resume nicardipine at 10 mill grams 3 times a day As needed enalapril and labetalol for hypertension GI: Heart healthy diet. Famotidine for GI prophylaxis Docusate sodium/senna 1 tablet twice a day for bowel regimen FEN/RENAL: Mcgee in place. Monitor intake and output. Replace electrolytes per ICU electrolyte protocol ID: Received perioperative cefazolin. Monitor for signs and symptoms of infection. HEME/ONC Metastatic papillary thyroid carcinoma Right supraclavicular mass with invasion into C5 vertebral body Leukocytosis Normocytic anemia Had outpatient PET scan that reported no distant metastatic disease. CT guided needle biopsy right supraclavicular mass 09/15/17- papillary thyroid carcinoma. Intraoperative pathology specimen sent 08/18 from resected vertebral mass, report pending. Dr. Ocasio following, follow-up with oncology outpatient clinic when cleared by Neurosurgery. Radiation oncologist following, Dr. Joy ENDO: Mild hyperglycemia may be secondary to steroids. Monitor bedside glucose and initiate low-dose Novulog insulin sliding scale low regimen TSH 2.68. Thyroglobulin 1641.3 PROPH: SCDs for DVT prophylaxis. Pharmacologic DVT prophylaxis when approved by neurosurgery. Famotidine for stress ulcer prophylaxis. Sergio Washington MD Sep 22, 2017 14:51
--- NOTE | 2017-09-22 15:33 | HHI.HCPN ---
Reason for visit a. To assist with evaluation and management of symptoms including: Pain, anxiety b. To assist medical decision maker(s) with: better understanding of current medical conditions; weighing benefits/burdens of medical treatment options; making medical treatment decisions. Subjective/Interval History Patient is seen in his room. Patient is alert and oriented to self, place and situation. Patient complaining of constipation- he feels the urge to defecate and has been spending more time on the toilet. Patient received a Dulcolax suppository before. Patient now on lactulose TID, and Bre colace 2 tabs BID. Discussed possible disimpaction and patient wants to try using a glycerin suppository before bedside RN checks to see if patient is impacted. Patient denies pain at at this time. Patient sparingly using pain medication. Encouraged patient to keep [place] J collar on most of the time. Vital signs stable. Case discussed with bedside RN, Josy MILLER. . Family/friend interactions No family at bedside. . Advance Directives Living Will: Never completed Health Care Surrogate: Copy in medical record Durable Power of Monument Installer: Never completed Advance Directive Specifics Date completed: 09/17/2017 . Health Care Surrogate(s): [facility]-son Maosud Fredy [phone] Alternate [facility]-brother David Fredy [phone] . Objective Vital Signs Date Time Temp Pulse Resp B/P (MAP) Pulse Ox O2 Delivery O2 Flow Rate FiO2 09/22/17 08:37 94 21 09/22/17 06:00 88 09/22/17 04:00 84 09/22/17 04:00 97.7 84 15 133/85 (101) 94 09/22/17 02:00 88 09/22/17 01:43 14 09/22/17 00:00 98.8 100 20 164/105 (124) 97 09/22/17 00:00 100 09/21/17 22:55 95 21 09/21/17 22:00 108 09/21/17 20:00 106 09/21/17 20:00 98.4 106 18 179/104 (129) 98 09/21/17 19:49 26 09/21/17 18:00 109 09/21/17 16:00 107 09/21/17 16:00 98.4 104 18 157/102 (120) 97 Intake & Output 09/22/17 09/22/17 07:00 19:00 Intake Total 480 ml Balance 480 ml Intake Oral 480 ml # Voids 4 # Bowel Movements 0 Physical Exam CONSTITUTIONAL/GENERAL: This is an adequately nourished patient. Currently denying pain TUBES/LINES/DRAINS:PIV SKIN: No jaundice, rashes, or lesions. No wounds seen anteriorly. Skin temperature appropriate. Anterior neck surgical incision covered with a dressing HEAD: Atraumatic. Normocephalic. EYES: Pupils equal and round and reactive. Extraocular motions intact. No scleral icterus. No injection or drainage. Fundi not examined. ENT: Hearing grossly normal. Nose without bleeding or purulent drainage. Moist oral mucosa. Patient is a [place] J collar NECK: Trachea midline. Supple, nontender. CARDIOVASCULAR: Regular rate and rhythm without murmurs, gallops, or rubs. No JVD. Peripheral pulses symmetric. RESPIRATORY/CHEST: Symmetric, unlabored respirations. Clear to auscultation. Breath sounds equal bilaterally. No wheezes, rales, or rhonchi. GASTROINTESTINAL: Abdomen soft, non-tender, nondistended. No guarding. Bowel sounds present. GENITOURINARY: Without palpable bladder distension. Mcgee catheter in place. MUSCULOSKELETAL: Extremities without clubbing, cyanosis, or edema. No joint tenderness or effusion noted. Decreased ROM to RUE NEUROLOGICAL: Alert,oriented to self, place and situation. Motor and sensory grossly within normal limits. Follows commands. Cognitively sharp. Moves all extremities. PSYCHIATRIC: No obvious anxiety/depression. no apparent hallucinations or other psychotic thought process. Diagnostic Tests Laboratory Laboratory Tests Test 09/20/17 05:16 09/21/17 05:34 09/22/17 04:14 09/22/17 04:41 White Blood Count 13.6 TH/MM3 (4.0-11.0) 9.5 TH/MM3 (4.0-11.0) 8.5 TH/MM3 (4.0-11.0) Red Blood Count 3.55 MIL/MM3 (4.50-5.90) 3.76 MIL/MM3 (4.50-5.90) 3.96 MIL/MM3 (4.50-5.90) Hemoglobin 10.6 GM/DL (13.0-17.0) 11.3 GM/DL (13.0-17.0) 11.8 GM/DL (13.0-17.0) Hematocrit 31.9 % (39.0-51.0) 33.4 % (39.0-51.0) 35.0 % (39.0-51.0) Mean Corpuscular Volume 90.0 FL (80.0-100.0) 89.1 FL (80.0-100.0) 88.3 FL (80.0-100.0) Mean Corpuscular Hemoglobin 29.9 PG (27.0-34.0) 30.1 PG (27.0-34.0) 29.8 PG (27.0-34.0) Mean Corpuscular Hemoglobin Concent 33.2 % (32.0-36.0) 33.8 % (32.0-36.0) 33.8 % (32.0-36.0) Red Cell Distribution Width 14.1 % (11.6-17.2) 14.1 % (11.6-17.2) 14.2 % (11.6-17.2) Platelet Count 303 TH/MM3 (150-450) 357 TH/MM3 (150-450) 395 TH/MM3 (150-450) Mean Platelet Volume 8.4 FL (7.0-11.0) 7.7 FL (7.0-11.0) 7.2 FL (7.0-11.0) Blood Urea Nitrogen 8 MG/DL (7-18) 8 MG/DL (7-18) 12 MG/DL (7-18) Creatinine 0.51 MG/DL (0.60-1.30) 0.48 MG/DL (0.60-1.30) 0.54 MG/DL (0.60-1.30) Random Glucose 121 MG/DL (74-106) 89 MG/DL (74-106) 93 MG/DL (74-106) Calcium Level 8.4 MG/DL (8.5-10.1) 8.4 MG/DL (8.5-10.1) 9.3 MG/DL (8.5-10.1) Sodium Level 141 MEQ/L (136-145) 140 MEQ/L (136-145) 139 MEQ/L (136-145) Potassium Level 3.8 MEQ/L (3.5-5.1) 3.6 MEQ/L (3.5-5.1) 3.8 MEQ/L (3.5-5.1) Chloride Level 108 MEQ/L (98-107) 104 MEQ/L (98-107) 103 MEQ/L (98-107) Carbon Dioxide Level 25.8 MEQ/L (21.0-32.0) 29.2 MEQ/L (21.0-32.0) 29.0 MEQ/L (21.0-32.0) Anion Gap 7 MEQ/L (5-15) 7 MEQ/L (5-15) 7 MEQ/L (5-15) Estimat Glomerular Filtration Rate 168 ML/MIN (>89) 180 ML/MIN (>89) 157 ML/MIN (>89) Result Diagram: 09/22/17 0414 09/22/17 0441 Imaging Last Impressions Chest X-Ray 09/19/17 0000 Signed Impressions: Service Date/Time: Tuesday, September 19, 2017 02:51 - CONCLUSION: Slight right lung base atelectasis. Winsome Fernandes MD Abdomen X-Ray 09/19/17 0000 Signed Impressions: Service Date/Time: Tuesday, September 19, 2017 04:03 - CONCLUSION: NG tube is present with tip barely in the stomach. Winsome Fernandes MD Cervical Spine X-Ray 09/18/17 0000 Signed Impressions: Service Date/Time: Monday, September 18, 2017 19:23 - CONCLUSION: 1. Postoperative fusion. Magno Cosby MD Neck CT 09/16/17 0000 Signed Impressions: Service Date/Time: Saturday, September 16, 2017 13:04 - CONCLUSION: Adenopathy on the right with the confluence mass in the right subclavicular region. Meniscectomy disease to C7. MRI could be used to exclude cord involvement. Mass in the right neck has been biopsied under ultrasound. Bladimir Dick MD FACR Lymph Node Biopsy Ultrasound 09/15/17 0000 Signed Impressions: Service Date/Time: Friday, September 15, 2017 15:07 - CONCLUSION: 1. Uncomplicated ultrasound guided 18 gauge core biopsies of right supraclavicular mass. Semaj Augustin MD Chest CT 09/14/17 0000 Signed Impressions: Service Date/Time: Thursday, September 14, 2017 11:08 - CONCLUSION: 4 cm soft tissue mass right subclavicular region with extension or metastatic disease into the body of C7. The supraclavicular mass would be amenable to percutaneous biopsy under ultrasound. Bladimir Dick MD FACR Brain MRI 09/14/17 0000 Signed Impressions: Service Date/Time: Thursday, September 14, 2017 10:27 - CONCLUSION: 1. Small retention cyst in the inferior aspect of the right maxillary antra and a subcutaneous 2 cm sebaceous cyst in the soft tissues overlying the left side of the occiput. 2. Otherwise negative. Intracranial structures are all radiographically normal. Chaparro Valdez MD Procedures 09/15/[id number] right supraclavicular mass biopsy 09/18/2017-C5 corpectomy, resection of metastatic for labral body and paraspinous neoplasm, C4 through C6 anterior cervical instrumentation and subtotal resection of right NECK-shaft clavicular metastatic neoplasm . Assessment and Plan Disease Oriented Problem List: (1) Supraclavicular mass (2) Cervical spinal mass (3) Leukocytosis (4) Tobacco abuse Symptom Scale: (1) Intractable pain Comment: Complaining of progressive neck pain which radiates to the right upper extremity. Patient has right C4 vertebral body and right supraclavicular tumor. . (2) Anxiety 0-10 Scale: Unable to quantify Comment: Hx of anxiety. Most likely exacerbated with recent cancer diagnosis. . 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 Patient has been twice, first and he is from his second . Patient had 2 sons, one 3 months ago from a motor cycle accident and one lives in [place]. Patient loves riding his motorcycle. He lives alone. Spiritual: No adventism affiliation Legal:Patient signed [facility] form 09/17 Ethical issues impacting care: None identified at this time . Important Contacts [facility]-son Masoud Daniel [phone] Alternate [facility]-brother David Daniel [phone] Girlfriend- Yenifer Margarito [phone] . Prognosis Mr. Daniel is a 56-year-old male with a past medical history of hypertension, depression, tobacco abuse and anxiety. Patient presented to the ER on 09/13/17 complaining of progressive severe neck pain that radiated down to use right upper extremity and also numbness and mild weakness to the same extremity. Chest CT on 09/14/17 revealed a 4 cm soft tissue mass right subclavicular region with extension or metastatic disease into the body of C7. CT-guided needle biopsy of right neck lymph node mass on 09/15/17 and results show papillary thyroid carcinoma. Clinical course complicated with intractable pain. Patient is scheduled for surgery and radiation therapy after recovery. Patient is at risk for further complications. Prognosis at this time is guarded. . Code Status: Full Code Plan PLAN: Legal decision maker: Patient is currently able to make his own medical decisions. In the event that he is incapacitated patient has designated his son Masoud Daniel to be his health care surrogate and his brother David Daniel to be his alternate health care surrogate. Goals: Aggressive CODE STATUS: Full code SYMPTOMS: * Pain: Patient came in complaining of progressive neck pain which radiates to the right upper extremity. Patient has right C4 vertebral body and right supraclavicular tumor. Currently on 50 mcg fentanyl patch Q 72 hours, morphine sulfate 5 mg Q 2 HRS PRN , oxycodone 10 mg Q 4 hrs prn, cyclobenzaprine 10 mg q 8 hrs prn muscle spasms. Patient underwent C5 corpectomy and C5 vertebral body reconstruction with C4-6 anterior cervical instrumentation. Patient currently denying pain. Recommending monitoring bowel movement status. * Constipation:Multifactorial. Patient required pain medication prior to surgery. Patient is complaining of abdominal and anal area discomfort. Currently on lactulose TID, and Bre colace 2 tabs BID and has received prn dulcolax and glycerin suppository. Recommended assessing patient for impaction. Patient requesting fleets enema which may also help if there is no bowel movement today. * Anxiety: Multifactorial. History of anxiety, most likely exacerbated with recent cancer diagnosis. Currently on Xanax 0.5 mg q 6 hrs prn. Last dose xanax 0.5mg administered 09/16/17. No recommendations. Palliative care will continue to follow the patient during hospital course as condition evolves, to assist patient/decision-maker with understanding of their medical conditions, weighing benefits/burdens of treatment options, for clarification of goals of treatment. Additionally will assist with any symptoms of palliative concern. Attestation To help prompt me to consider important information that might be impacting today's encounter and assessment, information from prior notes written by myself or my colleagues may have been "brought forward" into today's note. My signature on this note, however, is an attestation that I personally performed the exam, history, and/or decision-making noted today, and, unless otherwise indicated, the interactions with patient, family, and staff as well as the review of records all occurred today. I also attest that the listed assessment and stated plan reflect my best clinical judgment today based on the combination of historical information, prior notes, and today's exam/ interactions. When time spent is documented, it refers only to time spent today by the signer, or if indicated, combined time spent today by collaborating physician/nurse practitioner. Cristo Bunn Sep 22, 2017 15:33
[2017-09-22] MEDS: FAMOTIDINE 20 MG TAB PO SCH (22:33)
[2017-09-22] MEDS: ALPRAZolam 0.5 MG TAB PO PRN (23:45)
[2017-09-22] MEDS: MELATONIN 5 MG TAB PO PRN (23:45)
[2017-09-23] VITALS: BP 128/84; PULSE 99; RESP 16; TEMP 98.5; O2SAT 97
[2017-09-23 04:00] VITALS: BP 134/87; PULSE 104; RESP 18; TEMP 97.8; O2SAT 97
[2017-09-23] MEDS: NIFEdipine 10 MG CAP PO SCH (06:29)
[2017-09-23 08:00] VITALS: BP 138/85; PULSE 76; RESP 18; TEMP 98.3; O2SAT 98
[2017-09-23] MEDS: INSULIN ASPART SUPPLEMENTAL SCALE SQ SCH (08:00)
[2017-09-23] MEDS: CHLORHEXIDINE 0.12% (ORAL KIT) 15 ML CUP MT SCH (08:00)
[2017-09-23] MEDS: DOCUSATE SODIUM 50 MG/SENNA 8.6 MG TAB PO SCH (08:30)
[2017-09-23] MEDS: POLYETHYLENE GLYCOL 17 GM PKG PO SCH (08:30)
[2017-09-23] MEDS: LACTULOSE SYRUP 20 GM/30 ML CUP PO SCH (08:30)
[2017-09-23] MEDS: LOSARTAN 25 MG TAB PO SCH (08:44)
[2017-09-23] MEDS: NICOTINE 21 MG/24 HR PATCH T-DERMAL SCH (08:44)
[2017-09-23] MEDS: THIAMINE HCL 100 MG TAB PO SCH (08:44)
[2017-09-23] MEDS: ALPRAZolam 0.5 MG TAB PO PRN (08:44)
[2017-09-23] MEDS: SODIUM CHLORIDE 0.9% FLUSH 10 ML FLUSH IV FLUSH SCH (08:44)
[2017-09-23] MEDS: REMOVE OLD PATCH T-DERMAL SCH (08:45)
[2017-09-23] MEDS: buPROPion HCL 100 MG TAB PO SCH (08:45)
[2017-09-23] MEDS ORDERED: THIA100 PO (08:51)
[2017-09-23] MEDS ORDERED: COZA25TA PO (08:51)
[2017-09-23] MEDS ORDERED: NIFE10 PO (08:51)
[2017-09-23] MEDS ORDERED: PERI PO (08:51)
[2017-09-23] MEDS ORDERED: MELA5 PO (08:51)
--- NOTE | 2017-09-23 08:52 | HHI.DCPOC ---
Discharge Care Plan Diagnosis: (1) Papillary thyroid carcinoma Your Health Problems Are: Difficulty with ADL Exercise Tolerance Goals to Promote Your Health * To prevent worsening of your condition and complications * To maintain your health at the optimal level Directions to Meet Your Goals Take your medications as prescribed Follow your dietary instruction Follow activity as directed Keep your appointments as scheduled Take your immunizations and boosters as scheduled If your symptoms worsen call your PCP, if no PCP go to Urgent Care Center or Emergency Room Smoking is Dangerous to Your Health. Avoid second hand smoke Call the 24-hour hour crisis hotline for domestic abuse at Tobias Davidson MD Sep 23, 2017 08:52
[2017-09-23] MEDS ORDERED: OXYC1TAB36 PO (09:29)
--- NOTE | 2017-09-23 09:29 | HHI.NSPN ---
History Chief Complaint: Sore to the base of the neck at the sides. Interval History is a 36-year-old gentleman who complains of onset of right sided neck pain approximately 6 weeks ago. The pain gradually progressed and within another 3 weeks he developed progressive numbness and weakness and finally pain in the right shoulder and proximal arm. He states that for the past 2 or 3 weeks he has not been able to lift his right arm up. He was seen by a neurologist and an MRI of the cervical spine without contrast was ordered followed by an MRI with contrast which was done in [place]. He was seen by neurosurgery in [place] and referred to oncologist, , In [place]. A PET scan was performed which revealed the cervical spine and supraclavicular lesion without evidence of other metastatic disease. 09/16/17: Minimal response to fentanyl patch. 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 He is laying in the stretcher. He states that the neck pain and right shoulder pain persists and now has some pain going into the arm itself. He denied any numbness to the extremity. He endorsed a cough but denied any chest pain, palpitations, irregular heartbeat, shortness of breath, abdominal pain or nausea. Sensation and motor strength appear normal. He does say he is drowsy and slow moving due to the pain medication. He is scheduled for surgery later today. 09/18: The patient went for a C5 corpectomy with resection of a metastatic vertebral body and paraspinous neoplasm, followed by a C5 vertebral body reconstruction with carbon fiber cage and C4-6 anterior cervical instrumentation. He also had a subtotal resection of a right anterior neck- shaft clavicular metastatic neoplasm. Post-operatively he remained intubated and was transferred to the ISC unit for further care and monitoring. 09/19: Patient is status post cervical corpectomy due to metastatic lesion. Impression is that of thyroid carcinoma. Patient remained intubated postop. Nurses report he has been stable. At times agitated 09/20: Patient is status post cervical corpectomy due to metastatic lesion. Impression is that of thyroid carcinoma. Extubated yesterday. Patient reports he is doing well. No significant complaints 09/21: The patient is awake and alert sitting up in a chair when seen this morning. He says he is doing good. He does have some muscular pain to the right side of the neck and a sore throat. He denies any headache or dizziness or any pain, numbness, tingling or weakness to the extremities. He is in a Sy[place] J cervical collar. He is tolerating a regular diet. 09/22: The patient was in the bathroom initially when this practitioner entered the room. He was subsequently seen as he walked out of the bathroom. His gait was steady. He denied any headache or dizziness. He did endorses some pain and weakness to the proximal right arm but denied any other extremity pain, numbness ,tingling or weakness. His major complaint was constipation and rectal pain. His neuro exam was unchanged. 09/23: This morning the patient was seen after he came out of the bathroom. He states he has some pain/aching to the base of the lateral neck. He denied any headache or dizziness. He continues to have some mild pain to the lateral right proximal arm, otherwise he has no pain, numbness, tingling or weakness to the extremities. His neuro exam is stable. Discussed discharge plan with Dr Davidson. Exam Results 09/21/17 09/21/17 09/22/17 09/22/17 09/23/17 09/23/17 06:00 18:00 06:00 18:00 06:00 18:00 Intake Total 720 ml 800 ml 480 ml 700 ml 240 ml Output Total 2400 ml Balance -1680 ml 800 ml 480 ml 700 ml 240 ml Intake Oral 720 ml 800 ml 480 ml 700 ml 240 ml Output Urine Total 2400 ml # Voids 5 4 2 1 # Bowel Movements 0 0 0 Vital Signs Date Time Temp Pulse Resp B/P (MAP) Pulse Ox O2 Delivery O2 Flow Rate FiO2 09/23/17 08:00 98.3 76 18 138/85 (102) 98 09/23/17 04:00 97.8 104 18 134/87 (103) 97 09/23/17 00:00 98.5 99 16 128/84 (99) 97 09/22/17 20:00 98.4 100 18 147/99 (115) 97 2/20/18 16:00 98.2 95 18 115/73 (87) 94 2/20/18 13:00 98.5 120 24 121/73 (89) 94 2/20/18 08:37 94 21 2/20/18 08:00 98.3 88 19 146/88 (107) 94 220/18 06:00 88 2/20/18 04:00 84 2/20/18 04:00 97.7 84 15 133/85 (101) 94 218 02:00 88 220/18 01:43 14 220/18 00:00 98.8 100 20 164/105 (124) 97 218 00:00 100 2/18 22:55 95 21 09/21/18 22:00 108 2//18 20:00 106 2//18 20:00 98.4 106 18 179/104 (129) 98 09/21/18 19:49 26 09/21/18 18:00 109 18 16:00 107 18 16:00 98.4 104 18 157/102 (120) 97 09/21/18 14:00 106 2/18 12:00 98.9 104 22 163/102 (122) 98 09/21/18 12:00 102 09/21/18 10:00 104 2/18 09:31 99 21 2/18 08:00 106 2//18 08:00 98.0 98 16 156/97 (116) 95 18 06:00 84 218 04:00 86 218 04:00 97.9 86 15 145/90 (108) 96 2/18 02:00 98 219/18 00:16 14 2/18 00:00 98.4 90 13 122/71 (88) 95 2/18 00:00 90 218/18 22:44 16 2/18/18 22:00 102 2/18/18 20:16 97 21 2/18/18 20:00 98.4 92 15 149/93 (111) 98 218/18 20:00 92 2/18/18 18:00 105 2/18/18 16:00 94 2//18 16:00 98.7 90 19 131/67 (88) 97 09/20/17 14:00 99 09/20/17 12:00 98.2 100 17 142/95 (111) 97 09/20/17 12:00 102 09/20/17 10:00 108 Physical Examination GENERAL: Awake & alert ambulating in room. Readily interacts. Affect essentially normal. No apparent distress. HEENT: Normocephalic, atraumatic. NECK: In Sy[place] J cervical collar. Midline cervical spine NTTP. Minimally TTP to trapezius and scalene muscles bilaterally at the base of the neck. No JVD. Trachea midline. The right anterior surgical incision has a dry & intact dressing w/o any evident shadowing. MUSCULOSKELETAL: PEÑA spontaneously w/o difficulty. Extremities NTTP. Mild decrease in ROM to right shoulder. No evident clubbing or deformity. NEUROLOGICAL: AAOx3. Speech clear & appropriate. Follows simple commands w/o difficulty. Sensation is intact to light touch to all extremities. Motor strength is 4+/5 to the right deltoid o/w it is 5/5 to all major flexion & extension muscle groups of the extremities to include wrist flexors & extensors and hand intrinsics & extrinsics. Lab, Micro, Other Results Laboratory Tests Test 09/21/17 05:34 09/22/17 04:14 09/22/17 04:41 White Blood Count 9.5 TH/MM3 8.5 TH/MM3 Red Blood Count 3.76 MIL/MM3 3.96 MIL/MM3 Hemoglobin 11.3 GM/DL 11.8 GM/DL Hematocrit 33.4 % 35.0 % Mean Corpuscular Volume 89.1 FL 88.3 FL Mean Corpuscular Hemoglobin 30.1 PG 29.8 PG Mean Corpuscular Hemoglobin Concent 33.8 % 33.8 % Red Cell Distribution Width 14.1 % 14.2 % Platelet Count 357 TH/MM3 395 TH/MM3 Mean Platelet Volume 7.7 FL 7.2 FL Blood Urea Nitrogen 8 MG/DL 12 MG/DL Creatinine 0.48 MG/DL 0.54 MG/DL Random Glucose 89 MG/DL 93 MG/DL Calcium Level 8.4 MG/DL 9.3 MG/DL Sodium Level 140 MEQ/L 139 MEQ/L Potassium Level 3.6 MEQ/L 3.8 MEQ/L Chloride Level 104 MEQ/L 103 MEQ/L Carbon Dioxide Level 29.2 MEQ/L 29.0 MEQ/L Anion Gap 7 MEQ/L 7 MEQ/L Estimat Glomerular Filtration Rate 180 ML/MIN 157 ML/MIN Medical Decision Making Impression and Plan Impression: 1. Right C5 vertebral lesion with nearly 50% vertebral body destruction, significant impingement on the right C4 5 and C5 6 neural foramen. Pathology consistent with papillary thyroid carcinoma per report. 2. Right C5-6 radiculopathy with sensory motor deficit and persistent severe pain Patient is doing well this morning. His pain is controlled. There is no change in his neuro exam. Intermittent hypertension. Physical Therapy felt the patient was able to be safely discharged home w/o any skilled needs or equipment. POD #5 () s/p: 1. C5 corpectomy, resection of metastatic vertebral body and paraspinous neoplasm 2. C5 vertebral body reconstruction with carbon fiber cage, demineralized bone matrix 3. C4-6 anterior cervical instrumentation 4. Subtotal resection right anterior neck-shaft clavicular metastatic neoplasm Postoperative Diagnosis: (1) Cervical spinal mass (2) Supraclavicular mass (3) Papillary thyroid carcinoma 1. Metastatic carcinoma to cervical spine-C5 vertebral body with compression exiting right C5 and C6 nerve roots 2. Metastatic carcinoma to right anterolateral neck-shaft clavicular region Plan: Discussed plan of care & discharge instructions with patient who verbalised his understanding. Discussed plan of care & discharge with Hospitalist. Primary management per Hospitalist. Sycuan J cervical collar at all times except for personal hygiene. Mobilise patient w/assistance as needed. Physical Therapy. From Neurosurgery's perspective the patient is able to be discharged home with outpatient follow up around for a wound check. Rodriguez Maya Sep 23, 2017 09:29
--- NOTE | 2017-09-23 09:35 | HHI.DS ---
Discharge Summary Admission Date Sep 17, 2017 at 13:48 Discharge Date: Sep 23, 2017 Admitting Diagnosis Intractable pain, supraclavicular and C4 mass (1) Intractable pain ICD Code: R52 - Pain, unspecified Diagnosis: Principal (2) Cervical spinal mass ICD Code: G95.9 - Disease of spinal cord, unspecified Diagnosis: Principal (3) Supraclavicular mass ICD Code: R22.2 - Localized swelling, mass and lump, trunk Diagnosis: Principal (4) Leukocytosis ICD Code: D72.829 - Elevated white blood cell count, unspecified Diagnosis: Principal (5) Tobacco abuse ICD Code: Z72.0 - Tobacco use Diagnosis: Principal Procedures CT-guided biopsy of the supraclavicular mass. Subtotal resection of right supraclavicular mass, C5 corpectomy with resection of metastatic vertebral body and paraspinous neoplasm. C5 vertebral body reconstruction. Brief History - From Admission This is a 56-year-old male with a PMH of Anxiety, Depression and HTN who presented to the ER with complaints of severe neck pain. Pain started acute in August, has gotten progressively worse since then. Reports pain is severe, constant, 10/10, worse w/ movement. Notes associated RUE numbness/weakness when symptoms started. Was seen by Neurologist, Dr. Howell, in [place] at that time and referred for MRI. Per report, MRI C-Spine w/o contrast showing irregular mass involving C4-C5, had subsequent MRI w/ contrast showing large right supraclavicular soft tissue mass and destructive lesion of C5. States he saw Neurosurgeon in [place] who referred him to Oncologist. Was seen by Dr. Marroquin in [place] w/ Oncology, had PET Scan confirming destructive tumor right C4 vertebral body and right supraclavicular tumor, no mets elsewhere. States he called his Oncologist and was instructed to come to ER for further eval of severe pain. On arrival, BP 109/85, HR 120, O2 sat 98% on RA, Afebrile. W WBC 14.7. Chemistry essentially unremarkable. INR 1.1. UA negative. CXR with no acute findings. CBC/BMP: 09/22/17 0414 09/22/17 0441 Significant Findings Laboratory Tests Test 09/21/17 05:34 09/22/17 04:14 09/22/17 04:41 Red Blood Count 3.76 MIL/MM3 (4.50-5.90) 3.96 MIL/MM3 (4.50-5.90) Hemoglobin 11.3 GM/DL (13.0-17.0) 11.8 GM/DL (13.0-17.0) Hematocrit 33.4 % (39.0-51.0) 35.0 % (39.0-51.0) Creatinine 0.48 MG/DL (0.60-1.30) 0.54 MG/DL (0.60-1.30) Calcium Level 8.4 MG/DL (8.5-10.1) Imaging Last Impressions Chest X-Ray 09/19/17 0000 Signed Impressions: Service Date/Time: Tuesday, September 19, 2017 02:51 - CONCLUSION: Slight right lung base atelectasis. Winsome Fernandes MD Abdomen X-Ray 09/19/17 0000 Signed Impressions: Service Date/Time: Tuesday, September 19, 2017 04:03 - CONCLUSION: NG tube is present with tip barely in the stomach. Winsome Fernandes MD Cervical Spine X-Ray 09/18/17 0000 Signed Impressions: Service Date/Time: Monday, September 18, 2017 19:23 - CONCLUSION: 1. Postoperative fusion. Magno Cosby MD Neck CT 09/16/17 0000 Signed Impressions: Service Date/Time: Saturday, September 16, 2017 13:04 - CONCLUSION: Adenopathy on the right with the confluence mass in the right subclavicular region. Meniscectomy disease to C7. MRI could be used to exclude cord involvement. Mass in the right neck has been biopsied under ultrasound. Bladimir Dick MD FACR Lymph Node Biopsy Ultrasound 09/15/17 0000 Signed Impressions: Service Date/Time: Friday, September 15, 2017 15:07 - CONCLUSION: 1. Uncomplicated ultrasound guided 18 gauge core biopsies of right supraclavicular mass. Semaj Augustin MD Chest CT 09/14/17 0000 Signed Impressions: Service Date/Time: Thursday, September 14, 2017 11:08 - CONCLUSION: 4 cm soft tissue mass right subclavicular region with extension or metastatic disease into the body of C7. The supraclavicular mass would be amenable to percutaneous biopsy under ultrasound. Bladimir Dick MD FACR Brain MRI 09/14/17 Signed Impressions: Service Date/Time: Thursday, September 14, 2017 10:27 - CONCLUSION: 1. Small retention cyst in the inferior aspect of the right maxillary antra and a subcutaneous 2 cm sebaceous cyst in the soft tissues overlying the left side of the occiput. 2. Otherwise negative. Intracranial structures are all radiographically normal. Chaparro Valdez MD PE at Discharge General - middle age gentleman, in no distress HEENT - pupils equal, reactive, sclerae anicteric, neck supple, neck veins not distended, + collar CV - regular S1, S2, no murmurs Chest - clear b/l, good air entry, no wheezes Abdomen - soft, non-tender, non-distended, BS present, Skin - no rashes, no cyanosis Extremities - warm and well perfused, no edema, + peripheral pulses, no clubbing Neuro - AAO X 3, motor 5/5 over all extremities, sensation is intact, pupils are equal and reactive, EOMI, smile symmetric, tongue midline, shrugs shoulders Hospital Course This is a 56-year-old male with a PMH of Anxiety, Depression and HTN who presented to the ER with complaints of severe neck pain 2/2 to right supraclavicular mass with extension into C5 vertebral body status post biopsy with metastatic papillary thyroid carcinoma status post subtotal resection of right supraclavicular mass (to help alleviate compression of right carotid artery) C5 corpectomy with resection of metastatic vertebral body and paraspinous neoplasm and C5 vertebral body reconstruction. He is doing well pain under control with Percocet. Patient to undergo radiation therapy then possibly I-131 treatment outpatient. He also has hypertension controlled with losartan and nifedipine. He is motivated to quit smoking and wants to continue nicotinic patch. Pt Condition on Discharge: Stable Discharge Disposition: Discharge Home Discharge Time: > 30 minutes Discharge Instructions DIET: Follow Instructions for: Heart Healthy Diet Activities you can perform: Regular-No Restrictions Activities to Avoid: Driving Follow up Referrals: Neurosurgery - 09/29/17 with Jeancarlos Marinelli MD Call the office at [phone] for an appointment around . Keep the cervical collar on except for brief periods for personall hygiene. Keep the dressing dry and intact. It may be removed on . Let the steri-strips fall off on their own. No showering until the surgical incision has completely healed. Oncology - [address] Joy Oncology/Hematology - 1 Week PCP Follow-up - 1 Week New Medications: Losartan (Cozaar) 25 Mg Tab 25 MG PO DAILY for Blood Pressure Management, #60 TAB Melatonin (Melatonin) 5 Mg Tab 5 MG PO HS PRN for insomnia, #30 TAB Nifedipine (Procardia) 10 Mg Cap 10 MG PO Q8HR for Blood Pressure Management, #90 CAP Oxycodone HCl/Acetaminophen (Oxycodone-Acetaminophen 10-325) 10 Mg-325 Mg Tablet 1 TAB PO Q12HR PRN for pain, #14 TAB Sennosides-Docusate Sodium (Gnp Senna Plus 8.6-50 mg) 8.6 Mg-50 Mg Tab 2 TAB PO BID for Prevent Constipation, #60 TAB Thiamine HCl (Gnp Vitamin B-1) 100 Mg Tab 100 MG PO DAILY for vitamin, #30 TAB Continued Medications: Alprazolam (Alprazolam) 0.5 Mg Tab 0.5 MG PO Q6H PRN for ANXIETY, TAB 0 Refills Bupropion HCl (Bupropion HCl) 100 Mg Tab 300 MG PO DAILY for Control Depression, TAB 0 Refills Oxycodone-Acetaminophen (Percocet) 10-325 mg Tab 1 TAB PO Q4H PRN for PAIN, TAB 0 Refills Discontinued Medications: Losartan (Losartan) 25 Mg Tab 12.5 MG PO BID for Blood Pressure Management, #15 TAB 0 Refills Morphine IR (Morphine IR) 15 Mg Tab 15 MG PO Q6HR PRN for PAIN, TAB 0 Refills Additional Information Patient will be provided additional prescription for Percocet as he has only 10 tablets left. Counselled regarding narcotic Abando,Tobias Brush MD Sep 23, 2017 09:35
--- NOTE | 2017-09-23 10:53 | PD.ONC.PN ---
Subjective Subjective Remarks Neck pain improved. Eager to go home. Objective Data Date Time Temp Pulse Resp B/P (MAP) Pulse Ox O2 Delivery O2 Flow Rate FiO2 09/23/17 08:00 98.3 76 18 138/85 (102) 98 09/23/17 04:00 97.8 104 18 134/87 (103) 97 09/23/17 00:00 98.5 99 16 128/84 (99) 97 09/22/17 20:00 98.4 100 18 147/99 (115) 97 09/22/17 16:00 98.2 95 18 115/73 (87) 94 09/22/17 13:00 98.5 120 24 121/73 (89) 94 09/23/17 09/23/17 09/23/17 07:00 15:00 23:00 Intake Total 240 ml 240 ml Balance 240 ml 240 ml Result Diagram: 09/22/17 0414 09/22/17 0441 Administered Medications Medications (Trade) Dose Ordered Sig/Marcus Route PRN Reason Start Time Stop Time Status Last Admin Dose Admin Sodium Chloride (NS Flush) 2 ml UNSCH PRN IV FLUSH FLUSH AFTER USING IV ACCESS 09/14/17 01:00 09/21/17 10:50 Sodium Chloride (NS Flush) 2 ml BID IV FLUSH 09/14/17 09:00 09/22/17 22:33 Ondansetron HCl (Zofran Inj) 4 mg Q6H PRN IVP NAUSEA OR VOMITING 09/14/17 01:00 09/21/17 10:50 Magnesium Hydroxide (Milk Of Magnesia Liq) 30 ml Q12H PRN PO Mild constipation 09/14/17 01:00 09/22/17 11:01 Bisacodyl (Dulcolax Supp) 10 mg DAILY PRN RECTAL SEVERE CONSITIPATION 09/14/17 01:00 09/22/17 12:18 Alprazolam (Xanax) 0.5 mg Q6H PRN PO ANXIETY 09/14/17 02:00 09/23/17 08:44 Bupropion HCl (Wellbutrin) 300 mg DAILY PO 09/14/17 09:00 09/22/17 08:15 Cyclobenzaprine HCl (Flexeril) 10 mg Q8H PRN PO MUSCLE SPASM 09/14/17 03:45 09/14/17 05:04 Enalaprilat (Vasotec Inj) 1.25 mg Q6H PRN IV PUSH SBP>160, DBP>90 09/15/17 00:30 09/21/17 20:25 Morphine Sulfate (Morphine Inj) 5 mg Q2HR PRN IV PUSH severe breakthrough pain 09/16/17 13:00 09/21/17 00:11 Nicotine (Habitrol 21 Mg Patch.24 Hr) 1 patch DAILY T-DERMAL 09/17/17 09:00 09/23/17 08:44 Miscellaneous Information 1 DAILY T-DERMAL 09/17/17 09:00 09/22/17 08:36 Chlorhexidine Gluconate (Peridex 0.12% Liq) 15 ml BID@08,20 MT 09/19/17 08:00 09/19/17 08:56 Oxycodone/ Acetaminophen (Percocet 10-325 Mg) 1 tab Q6HR PRN PO pain 3 through 5 09/20/17 09:15 09/21/17 18:49 Oxycodone/ Acetaminophen (Percocet 10-325 Mg) 2 tab Q6HR PRN PO pain 6-10 09/20/17 09:15 09/22/17 23:45 Losartan Potassium (Cozaar) 25 mg DAILY PO 09/21/17 09:00 09/23/17 08:44 Nifedipine (Procardia) 10 mg Q8HR PO 09/20/17 14:00 09/23/17 06:29 Thiamine HCl (Vitamin B1) 100 mg DAILY PO 09/21/17 09:00 09/23/17 08:44 Melatonin (Melatonin) 5 mg HS PRN PO insomnia 09/20/17 21:00 09/22/17 23:45 Famotidine (Pepcid) 20 mg HS PO 09/20/17 21:00 09/22/17 22:33 Polyethylene Glycol (Miralax) 17 gm DAILY PO 09/21/17 09:00 09/22/17 08:14 Glycerin (Glycerin Adult Supp) 2 gm BID PRN RECTAL CONSTIPATION 09/21/17 05:30 09/22/17 14:32 Lactulose (Lactulose Liq) 30 ml QID PO 09/22/17 13:00 09/22/17 12:18 Objective Remarks GENERAL: Well-nourished, well-developed patient. SKIN: Warm and dry. HEAD: Normocephalic. EYES: No scleral icterus. No injection or drainage. NECK: Supple, trachea midline. No JVD or lymphadenopathy.In neck collar LYMPHATIC: No adenopathy. CARDIOVASCULAR: Regular rate and rhythm without murmurs. RESPIRATORY: Breath sounds equal bilaterally. No accessory muscle use. GASTROINTESTINAL: Abdomen soft, non-tender, nondistended. EXTREMITIES: No cyanosis, or edema. MUSCULOSKELETAL: Adequate muscle tone. NEUROLOGICAL: No obvious focal deficit. Awake, alert, and oriented x3. PSYCHIATRIC: Appropriate mood and affect; insight and judgment normal. Assessment/Plan Problem List: (1) Papillary thyroid carcinoma ICD Codes: C73 - Malignant neoplasm of thyroid gland Plan: --s/p corpectomy on 09/18, path pending. --large right supraclavicular mass with cervical mass. path=papillary thyroid carcinoma. --face sheet faxed to new patient referrals. Assessment 56y/o male with cervical mass and supraclavicular mass, admitted with neck pain. HPI (brought forward from initial consult for continuity of care)--started having pain around August and was progressively getting worse. He stated the pain was worse with movement. He was referred to see neurology, had an MRI of the cervical spine done initially without contrast which showed a C4 and C5 lesion. Subsequently he had an MRI with contrast which again showed a cervical lesion with a large right supraclavicular mass. He was then sent to see a neurosurgeon and subsequently sent to see an oncologist in [place], Dr. Marroquin. He stated he had a PET scan done which showed a destructive lesion in C4 and had a right supraclavicular mass but no other distant metastasis. He stated his pain is worse and his insurance does not cover the biopsy. He was told to come to the emergency room for further evaluation. Plan 1. Discussed case at tumor board yesterday. Discussed treatment plan with patient. 2. F/u oncology clinic and with after d/c. Jj Ocasio MD Sep 23, 2017 10:53
== END 2017-09-23 11:13 | disposition home or self-care (01) | DRG 464 ==
LOC: NEPE 21:38 → NEDA 09-14 00:50 → NEPFCDU 09-14 01:40 → OBSVTOIN 09-17 13:48 → N06B 09-18 15:46 → N03B 09-18 21:30 → N03A 09-18 23:40 → N03B 09-22 17:48
PROVIDERS: ADMIT Internal Medicine; ATTEND Internal Medicine
PROC: 07B53ZX Excision of Right Axillary Lymphatic, Percutaneous Approach, Diagnostic (ICD-10-PCS; principal; 2017-09-15)
PROC: 0RG20A0 Fusion of 2 or more Cervical Vertebral Joints with Interbody Fusion Device, Anterior Approach, Anterior Column, Open Approach (ICD-10-PCS; 2017-09-18)
PROC: 0JB40ZZ Excision of Right Neck Subcutaneous Tissue and Fascia, Open Approach (ICD-10-PCS; 2017-09-18)
PROC: 0RT30ZZ Resection of Cervical Vertebral Disc, Open Approach (ICD-10-PCS; 2017-09-18)
PROC: 0PB30ZX Excision of Cervical Vertebra, Open Approach, Diagnostic (ICD-10-PCS; 2017-09-18)
PROC: 0PQ Upper Bones, Repair (ICD-10-PCS; 2017-09-18)
PROC: 5A1935Z Respiratory Ventilation, Less than 24 Consecutive Hours (ICD-10-PCS; 2017-09-18)
DX: C79.51 Secondary malignant neoplasm of bone (principal); C77.0 Secondary and unspecified malignant neoplasm of lymph nodes of head, face and neck; C73 Malignant neoplasm of thyroid gland; E83.39 Other disorders of phosphorus metabolism; I10 Essential (primary) hypertension; D64.9 Anemia, unspecified; F41.9 Anxiety disorder, unspecified; F32.9 Major depressive disorder, single episode, unspecified; F17.210 Nicotine dependence, cigarettes, uncomplicated; Z96.642 Presence of left artificial hip joint; R05 Cough; R20.0 Anesthesia of skin; Z80.51 Family history of malignant neoplasm of kidney; Z80.0 Family history of malignant neoplasm of digestive organs; G93.0 Cerebral cysts; Z51.5 Encounter for palliative care; K59.00 Constipation, unspecified; M54.12 Radiculopathy, cervical region; K62.89 Other specified diseases of anus and rectum
CPT/HCPCS: 36430; 38505; 70490; 70491; 70553; 71045; 71260; 72020; 74018; 76000; 76942; 80048; 80053; 80069; 81001; 82565; 82805; 82948; 83690; 83735; 84432; 84443; 85025; 85027; 85610; 85730; 86800; 86850; 86900; 86901; 86920; 87641; 88305; 88307; 88311; 88341; 88342; 93005; 94002; 94150; 96361; 96374; 96375; 96376; A9579; C1713; C9113; G0378; J0690; J1100; J1170; J1580; J1815; J2250; J2270; J2370; J2405; J3010; J3480; J7040; J7060; J7120; L0150; L0172; P9016; Q9967

== ENCOUNTER → 2017-11-16 | Outpatient (CLI) | payer BC, OTHER ==
[~2017-11-16] MED LIST: ALPR0.5T3 PO; BUPR100T4 PO; COZA25TA PO; MELA5 PO; NIFE10 PO; OXYC1TAB36 PO; PERC10TA27 PO; PERI PO; THIA100 PO
--- NOTE | 2017-11-16 15:04 | RADRPT ---
EXAM DATE/TIME: 11/16/2017 14:13 [facility] COMPARISON: No previous studies available for comparison. INDICATIONS : Dysphagia, hoarseness.Problems swallowing liquids. FLUORO TIME: 1.6 minutes IMAGE COUNT: 1 CONTRAST: Dose as prescribed by speech pathologist. MEDICAL HISTORY : Carcinoma, thyroid. mass in cervical spine and clavicle, radiation pill for thyroid cancer SURGICAL HISTORY : cervical spine surgery 09/2017 ENCOUNTER: Initial ACUITY: 2 months PAIN SCORE: 0/10 LOCATION: Bilateral neck FINDINGS: A modified barium swallow was performed with speech pathology. Patient was given a variety of liquids to swallow. Status post anterior cervical fusion from C4-C6. In alignment without aspiration. For a full detailed report, see report by the speech pathologist. CONCLUSION: No aspiration. Bladimir Dick MD FACR on November 16, 2017 at 15:02 Board Certified Radiologist. This report was verified electronically.
== END ==
LOC: HRAD 13:56
PROVIDERS: ATTEND Neurological Surgery
DX: R49.8 Other voice and resonance disorders (principal)
CPT/HCPCS: 74230; 92611; G8996; G8997; G8998